=== PATIENT | male | born 1980 | race Two or more races ===

== ENCOUNTER 2020-09-18 10:19 | Inpatient (IN) | payer BC, SELFPAY ==
[2020-09-18] VITALS (8 sets, daily range): BP systolic 139–165; BP diastolic 88–116; PULSE 73–118; RESP 15–20; TEMP 36.6–39.1; O2SAT 96–98; BMI 33.3
--- NOTE | ~2020-09-18 | CT_ITS ---
EXAMINATION: CT ABDOMEN AND PELVIS WITHOUT CONTRAST CLINICAL INFORMATION: UTI with history of calculi COMPARISON: TECHNIQUE: Multidetector volumetric imaging was performed from the superior aspect of the liver through the pubic symphysis. Sagittal and coronal reformatted images were obtained on the technologist's workstation. This CT examination was performed using dose optimization techniques as appropriate, variously including the following: *Automated exposure control *Adjustment of mA and/or kV according to patient size (this includes techniques or standardized protocols for targeted exams where dose is matched to indication/reason for exam; i.e. 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 LUNG BASES: The visualized lung bases are unremarkable. LIVER, GALLBLADDER, AND BILIARY TREE: The liver is normal in size and shape but demonstrates decreased attenuation consistent with hepatic steatosis. 2 benign water density hepatic cysts are again seen. There are areas of focal fatty sparing adjacent to the gallbladder. No worrisome solid focal hepatic lesion or biliary ductal dilatation is present. The gallbladder is unremarkable with no evidence of radiopaque gallstones, gallbladder wall thickening, or obvious pericholecystic inflammatory changes. PANCREAS: Unremarkable. SPLEEN: Unremarkable. ADRENAL GLANDS: Unremarkable. KIDNEYS AND URETERS: Right: Severe right-sided hydronephrosis is present with the right kidney being essentially a hydronephrotic shell with extremely thinned cortex. A stone which had been in the right lower pole is now in the proximal right ureter adjacent to another stone which had been present in the ureter. The distal right ureter is normal. Left: No abnormality is seen. BLADDER: Unremarkable. GASTROINTESTINAL TRACT: The small and large bowel are unremarkable. The appendix is unremarkable. ABDOMINAL WALL: No significant hernia is appreciated. LYMPH NODES: Normal. VASCULAR: Unremarkable. PELVIC VISCERA: Unremarkable. OSSEOUS STRUCTURES: Unremarkable. CT/CT abdomen pelvis wo con IMPRESSION: 1. The only interval change from the prior study is a previously seen intrarenal right renal calculus which has moved and is lodged in the proximal right ureter along with another stone which had been present at this same area. The right kidney is a hydronephrotic shell with very little meaningful renal cortex and on renal dynamic imaging with Lasix performed on 09/22/2017 was shown to have no significant function. 2. Again noted is hepatic steatosis and 2 benign hepatic cysts
--- NOTE | ~2020-09-18 | XR_ITS ---
EXAMINATION: XR CHEST CLINICAL INFORMATION: Chest pain and fever COMPARISON: Previous CT of the abdomen and pelvis November 2017 TECHNIQUE: Frontal view of the chest was obtained. FINDINGS: The cardiac apex and aortic knob are on the right. Compared with previous CT this is compatible with situs inversus. The cardiac and mediastinal contours are otherwise normal. The lungs are clear. There is no pleural effusion or pneumothorax. Bony structures are unremarkable. XR/XR chest 1V IMPRESSION: Situs inversus. No evidence for acute disease in the chest.
--- NOTE | ~2020-09-18 | FL_ITS ---
EXAMINATION: Intraoperative fluoroscopy CLINICAL INFORMATION: Ureteroscopy COMPARISON: CT abdomen pelvis 09/18/2020 TECHNIQUE: Intraoperative fluoroscopy was provided for use by Dr. Hilliard. A total of 1 image was saved to PACS. A radiologist was not present during imaging. Today's dictation is only for administrative purposes to document intraoperative fluoroscopic usage. TOTAL FLUOROSCOPIC TIME: 1 minute and 31 seconds FL/FL guidance in OR FINDINGS~\^^ Intraoperative fluoroscopy provided for use by Dr. Hilliard. Please see operative note for detailed findings.
[2020-09-18] MEDS: Acetaminophen 325 MG TABLET 650 MG PO ×2 (10:33→16:58)
--- NOTE | 2020-09-18 11:37 | ED_ITS ---
HPI - General Adult General Chief complaint: General Medical Stated complaint: difficulty breathing, pain when urinating Time Seen by Provider: 09/18/20 11:21 Source: patient Mode of arrival: ambulatory Limitations: no limitations History of Present Illness HPI narrative: 40 y/o male with history of recurrent kidney stones with history of lithotripsy, hx right ureteral stricture s/p ureteral stent placement several times in the past, UTI who presents to the ED with 1 day of painful urination. He states it started out very slight yesterday and then this morning was pretty severe. He denies blood in his urine, back pain, abdominal pain, N/V/D. He states it feels like when he last had a UTI last year. He denies fevers at home but was noted to be febrile and tachycardic on arrival to the ED. He also reports dry cough that started yesterday that is associated with chest pain when he is coughing. MD complaint: dysuria Onset (ago): day(s) (1) Location: genitals Radiation: non-radiation Severity: severe Quality: burning Pain Consistency: intermittent Relieving factors: none Exacerbating factors: other (urination) Associated symptoms: fever/chills Treatments prior to arrival: none Related Data Allergies Allergy/AdvReac Type Severity Reaction Status Date / Time No Known Allergies Allergy Unverified 02/03/20 16:16 [No Known Allergies*] Review of Systems Review of Systems: Constitutional: No Fever, No Chills ENT/Mouth: No sore throat, No Rhinorrhea, No Swallowing Difficulty Cardiovascular: + Chest Pain, No SOB, No Orthopnea, No Edema Respiratory: + Cough, No Sputum, No Wheezing, No dyspnea Gastrointestinal: No Nausea, No Vomiting, No Diarrhea, No abdominal Pain Genitourinary: + Dysuria, No Urinary Frequency, No Hematuria Musculoskeletal: No joint pain, No Myalgias Skin: No Skin Lesions, No rash Neuro: No Weakness, No Numbness, No Dizziness, No Headache Psych: No Anxiety/Panic, No Depression Heme/Lymph: No Bruising, No Lymphadenopathy Endocrine: No Polyuria, No Polydipsia PMFSH Past Medical History Attestation statement: The following information was validated with the patient. Social History Social History Use of substances other than those prescribed or required for medical reasons: No Advance Directives: No Advance Directives Information Provided: No Physical Exam 2 Vital Signs: Vital Signs: Last Vital Signs Temp 99.5 F 09/18/20 12:38 Pulse 113 H 09/18/20 15:50 Resp 16 09/18/20 15:50 BP 165/116 H 09/18/20 15:50 Pulse Ox 96 09/18/20 15:50 Body Mass Index 33.3 Appearance: Alert. Oriented X3. No acute distress. Eyes: Pupils equal, round and reactive to light. ENT: Pharynx normal. Neck: Normal inspection. Neck supple. CVS: Tachycardic, regular rhythm. Pulses normal. Respiratory: No respiratory distress. Breath sounds normal. Abdomen: Soft and nontender. +BS x4. No CVA tenderness. Skin: Skin warm and dry. Normal skin color. Normal skin turgor. No rashes. Extremities: No lower extremity edema. Neuro: Oriented X 3. No motor deficit. No sensory deficit. Course Course Course Narrative: 40 y/o male presenting with dysuria x1 day. Arrives febrile and tachycardic. Non-toxic appearing. He has no CVA tenderness, hematuria or other symptoms of kidney stone. Concern for acute UTI, also given cough and fever will need to f/u COVID-19. He is not hypoxic and has no respiratory distress. Will get labs, UA, blood cultures, lactic acid. IVF and tylenol ordered. Reevaluation(s) Reevaluation #1: Patient's UA is positive for infection. His WBC is 18K. He meets sepsis criteria without evidence of organ dysfunction. Lactic acid is normal. He was given 1L IVF. IV Levaquin ordered. Prior urine culture is not on file upon review. His renal function is at his baseline. Given lack of CVA tenderness or hematuria will hold off on imaging for now. Troponin 42. His chest pain is only with cough. Doubt ACS. CXR is clear. Will get EKG and repeat troponin. Discussed admission to the hospital with the patient who is agreeable to stay for IV abx. Reevaluation #2: Troponin trending down. EKG still pending. Spoke with Nina NAVARRO who will admit for sepsis 2/2 UTI. Medical Decision Making Lab Data Result diagrams: 09/18/20 12:14 09/18/20 12:14 Labs: Lab Results 05/03/21 05/03/21 05/03/21 Range/Units 12:14 12:14 12:14 WBC 18.3 H (4.8-10.8) X10*3/uL RBC 5.54 (4.60-5.80) X10*6/uL Hgb 14.3 (14.0-18.0) g/dl Hct 44.7 (42-52) % MCV 80.7 (80-98) fL MCH 25.8 L (27.0-33.0) pg MCHC 32.0 (31.0-36.0) g/dl RDW 13.0 (11.0-16.0) % Plt Count 204 (160-400) X10*3/uL MPV 10.0 (9.4-12.4) fL Immature Gran % (Auto) 0.3 (0.0-0.4) % Neut % (Auto) 77.7 H (45-73) % Lymph % (Auto) 14.3 L (20-40) % [place] % (Auto) 7.1 (2-11) % Eos % (Auto) 0.4 (0-4) % Baso % (Auto) 0.2 (0-2) % Lymph # (Auto) 2.6 (1.2-4.9) X10*3/uL [place] # (Auto) 1.3 H (0.1-1.2) X10*3/uL Eos # (Auto) 0.1 (0.0-0.4) X10*3/uL Baso # (Auto) 0.0 (0.0-0.2) X10*3/uL Abs Immat Gran (auto) 0.05 H (0.00-0.03) X10*3/uL Absolute Neuts (auto) 14.2 H (2.0-8.3) X10*3/uL Absolute Nucleated RBC 0.000 (0.0-0.012) X10*3/uL Nucleated RBC % (auto) 0.0 (0.0-0.2) /100WBC Sodium 140 (135-145) mmol/L Potassium 3.8 (3.3-5.1) mmol/L Chloride 107 (96-108) mmol/L Carbon Dioxide 24 (22-29) mmol/L Anion Gap 13 (12-20) BUN 12 (9-16) mg/dL Creatinine 1.41 H (0.5-1.4) mg/dL Estim Creat Clear Calc 73.5 Estimated GFR 56 Random Glucose 91 (60-115) mg/dL Lactic Acid 1.0 (0.5-2.0) mmol/L Calcium 9.1 (8.4-10.2) mg/dL Magnesium 2.0 (1.6-2.6) mg/dL Total Bilirubin 0.7 (0.0-1.0) mg/dL Direct Bilirubin 0.3 (0.0-0.5) mg/dL AST 17 (5-37) U/L ALT 29 (0-40) U/L Alkaline Phosphatase 136 H (39-117) U/L Troponin I High Sens (<3.5-35.0) ng/L Total Protein 7.2 (6.5-8.0) g/dL Albumin 4.4 (3.5-5.0) g/dL Urine Color Urine Appearance Urine pH (5.0-8.0) Ur Specific [place] (1.005-1.025) Urine Protein (NEG-TRACE) MG/DL Urine Glucose (UA) (NEG) MG/DL Urine Ketones (NEG) MG/DL Urine Blood (NEG) Urine Nitrite (NEG) Ur Leukocyte Esterase (NEG) Urine RBC (0) /HPF Urine WBC (0-4) /HPF Ur Squamous Epith Cells /LPF Urine Bacteria /LPF Coronavirus (PCR) (Negative) Influenza Type A (PCR) (Negative) Influenza Type B (PCR) (Negative) RSV RNA Qual (PCR) (Negative) 09/18/20 09/18/20 09/18/20 Range/Units 12:14 12:14 12:14 WBC (4.8-10.8) X10*3/uL RBC (4.60-5.80) X10*6/uL Hgb (14.0-18.0) g/dl Hct (42-52) % MCV (80-98) fL MCH (27.0-33.0) pg MCHC (31.0-36.0) g/dl RDW (11.0-16.0) % Plt Count (160-400) X10*3/uL MPV (9.4-12.4) fL Immature Gran % (Auto) (0.0-0.4) % Neut % (Auto) (45-73) % Lymph % (Auto) (20-40) % [place] % (Auto) (2-11) % Eos % (Auto) (0-4) % Baso % (Auto) (0-2) % Lymph # (Auto) (1.2-4.9) X10*3/uL [place] # (Auto) (0.1-1.2) X10*3/uL Eos # (Auto) (0.0-0.4) X10*3/uL Baso # (Auto) (0.0-0.2) X10*3/uL Abs Immat Gran (auto) (0.00-0.03) X10*3/uL Absolute Neuts (auto) (2.0-8.3) X10*3/uL Absolute Nucleated RBC (0.0-0.012) X10*3/uL Nucleated RBC % (auto) (0.0-0.2) /100WBC Sodium (135-145) mmol/L Potassium (3.3-5.1) mmol/L Chloride (96-108) mmol/L Carbon Dioxide (22-29) mmol/L Anion Gap (12-20) BUN (9-16) mg/dL Creatinine (0.5-1.4) mg/dL Estim Creat Clear Calc Estimated GFR Random Glucose (60-115) mg/dL Lactic Acid (0.5-2.0) mmol/L Calcium (8.4-10.2) mg/dL Magnesium (1.6-2.6) mg/dL Total Bilirubin (0.0-1.0) mg/dL Direct Bilirubin (0.0-0.5) mg/dL AST (5-37) U/L ALT (0-40) U/L Alkaline Phosphatase (39-117) U/L Troponin I High Sens 43.6 H (<3.5-35.0) ng/L Total Protein (6.5-8.0) g/dL Albumin (3.5-5.0) g/dL Urine Color YELLOW Urine Appearance HAZY Urine pH 8.0 (5.0-8.0) Ur Specific [place] 1.020 (1.005-1.025) Urine Protein 2+ H (NEG-TRACE) MG/DL Urine Glucose (UA) NEG (NEG) MG/DL Urine Ketones NEG (NEG) MG/DL Urine Blood 2+ H (NEG) Urine Nitrite NEG (NEG) Ur Leukocyte Esterase 2+ H (NEG) Urine RBC 15-29 H (0) /HPF Urine WBC 76-150 H (0-4) /HPF Ur Squamous Epith Cells NONE /LPF Urine Bacteria 4+ /LPF Coronavirus (PCR) NEGATIVE (Negative) Influenza Type A (PCR) NEGATIVE (Negative) Influenza Type B (PCR) NEGATIVE (Negative) RSV RNA Qual (PCR) NEGATIVE (Negative) 09/18/20 Range/Units 15:47 WBC (4.8-10.8) X10*3/uL RBC (4.60-5.80) X10*6/uL Hgb (14.0-18.0) g/dl Hct (42-52) % MCV (80-98) fL MCH (27.0-33.0) pg MCHC (31.0-36.0) g/dl RDW (11.0-16.0) % Plt Count (160-400) X10*3/uL MPV (9.4-12.4) fL Immature Gran % (Auto) (0.0-0.4) % Neut % (Auto) (45-73) % Lymph % (Auto) (20-40) % [place] % (Auto) (2-11) % Eos % (Auto) (0-4) % Baso % (Auto) (0-2) % Lymph # (Auto) (1.2-4.9) X10*3/uL [place] # (Auto) (0.1-1.2) X10*3/uL Eos # (Auto) (0.0-0.4) X10*3/uL Baso # (Auto) (0.0-0.2) X10*3/uL Abs Immat Gran (auto) (0.00-0.03) X10*3/uL Absolute Neuts (auto) (2.0-8.3) X10*3/uL Absolute Nucleated RBC (0.0-0.012) X10*3/uL Nucleated RBC % (auto) (0.0-0.2) /100WBC Sodium (135-145) mmol/L Potassium (3.3-5.1) mmol/L Chloride (96-108) mmol/L Carbon Dioxide (22-29) mmol/L Anion Gap (12-20) BUN (9-16) mg/dL Creatinine (0.5-1.4) mg/dL Estim Creat Clear Calc Estimated GFR Random Glucose (60-115) mg/dL Lactic Acid (0.5-2.0) mmol/L Calcium (8.4-10.2) mg/dL Magnesium (1.6-2.6) mg/dL Total Bilirubin (0.0-1.0) mg/dL Direct Bilirubin (0.0-0.5) mg/dL AST (5-37) U/L ALT (0-40) U/L Alkaline Phosphatase (39-117) U/L Troponin I High Sens 37.7 H (<3.5-35.0) ng/L Total Protein (6.5-8.0) g/dL Albumin (3.5-5.0) g/dL Urine Color Urine Appearance Urine pH (5.0-8.0) Ur Specific [place] (1.005-1.025) Urine Protein (NEG-TRACE) MG/DL Urine Glucose (UA) (NEG) MG/DL Urine Ketones (NEG) MG/DL Urine Blood (NEG) Urine Nitrite (NEG) Ur Leukocyte Esterase (NEG) Urine RBC (0) /HPF Urine WBC (0-4) /HPF Ur Squamous Epith Cells /LPF Urine Bacteria /LPF Coronavirus (PCR) (Negative) Influenza Type A (PCR) (Negative) Influenza Type B (PCR) (Negative) RSV RNA Qual (PCR) (Negative) Discharge Plan Discharge Clinical Impression: Acute UTI Sepsis Qualifiers: Sepsis type: sepsis due to unspecified organism Sepsis acute organ dysfunction status: without acute organ dysfunction Qualified Code(s): A41.9 - Sepsis, unspecified organism Patient Disposition: Admitted As Inpatient
[2020-09-18] MEDS: 0.9 % Sodium Chloride 1,000 ML 999 ML IVCONT (12:13)
[2020-09-18 12:23] LABS: MANUAL DIFF FLAG NO
[2020-09-18 12:25] LABS: Basophils Percent Auto 0.2 % (0-2); Eosinophils Absolute Auto 0.1 X10*3/uL (0.0-0.4); Eosinophils Percent Auto 0.4 % (0-4); Hematocrit 44.7 % (42-52); Hemoglobin 14.3 g/dl (14.0-18.0); Imm Gran Abs Auto 0.05 X10*3/uL (0.00-0.03); Imm Gran Pct Auto 0.3 % (0.0-0.4); Lymphocytes Absolute Auto 2.6 X10*3/uL (1.2-4.9); Lymphocytes Percent Auto 14.3 % (20-40); Mean Corpuscular Hemoglobin 25.8 pg (27.0-33.0); Mean Corpuscular Volume 80.7 fL (80-98); Monocytes Absolute Auto 1.3 X10*3/uL (0.1-1.2); Monocytes Percent Auto 7.1 % (2-11); Neutrophils Absolute Auto 14.2 X10*3/uL (2.0-8.3); Neutrophils Percent Auto 77.7 % (45-73); Platelet Count 204 X10*3/uL (160-400); Red Blood Count 5.54 X10*6/uL (4.60-5.80); White Blood Count 18.3 X10*3/uL (4.8-10.8)
[2020-09-18] MEDS: levoFLOXacin/D5W 500 MG/100 ML PIGGYBACK 100 MG IV (12:32)
[2020-09-18 12:53] LABS: Alanine Aminotransferase 29 U/L (0-40); Albumin Level 4.4 g/dL (3.5-5.0); Alkaline Phosphatase 136 U/L (39-117); Anion Gap 13 (12-20); Aspartate Amino Transferase 17 U/L (5-37); Bilirubin Direct 0.3 mg/dL (0.0-0.5); Bilirubin Total 0.7 mg/dL (0.0-1.0); Blood Urea Nitrogen 12 mg/dL (9-16); Calcium 9.1 mg/dL (8.4-10.2); Carbon Dioxide 24 mmol/L (22-29); Chloride 107 mmol/L (96-108); Creatinine Clr Calc Pharmacy 73.5; Estimated Glomerular Filt Rate 56; Glucose Random 91 mg/dL (60-115); Potassium 3.8 mmol/L (3.3-5.1); Sodium 140 mmol/L (135-145); Total Protein 7.2 g/dL (6.5-8.0)
[2020-09-18 12:54] LABS: Glucose Urine UA NEG (NEG); Leukocyte Esterase Urine 2+ (NEG); Nitrite Urine NEG (NEG); UACC Culture Trigger YES; Urine Blood 2+ (NEG); Urine Ketones NEG (NEG); Urine Protein 2+ MG/DL (NEG-TRACE)
[2020-09-18 12:57] LABS: Appearance Urine HAZY; Color Urine YELLOW
[2020-09-18 13:07] LABS: Influenza A PCR NEGATIVE (Negative); Influenza B PCR NEGATIVE (Negative); Resp Syncy Virus RNA Qual PCR NEGATIVE (Negative); SARS COV2 PCR INHOUSE NEGATIVE (Negative); Troponin-I High Sensitivity 43.6 ng/L (<3.5-35.0)
[2020-09-18 13:13] LABS: Bacteria Urine 4+ /LPF
--- NOTE | 2020-09-18 15:51 | PC.NURSE ---
repeat troponin drawn/sent. pt resting quietly
[2020-09-18 16:49] LABS: Troponin-I High Sensitivity 37.7 ng/L (<3.5-35.0)
--- NOTE | 2020-09-18 16:51 | ECG_ITS ---
Test Reason : GENERAL MEDICAL Blood Pressure : / mmHG Vent. Rate : 085 BPM Atrial Rate : 085 BPM P-R Int : 136 ms QRS Dur : 086 ms QT Int : 370 ms P-R-T Axes : 000 105 070 degrees QTc Int : 440 ms Normal sinus rhythm Rightward axis Borderline ECG When compared with ECG of 03-OCT-2003 14:12, Criteria for Anterior infarct are no longer Present Criteria for Anterolateral infarct are no longer Present T wave inversion no longer evident in Lateral leads Referred By: Violet Arreola Electronically Signed By:LAWRENCE ACEVEDO
--- NOTE | 2020-09-18 18:42 | PM.IMHP ---
History of Present Illness Date of Service: 09/18/20 Chief Complaint: Dysuria 40-year-old male with a history of kidney stones who presents to the emergency room with a dysuria that started yesterday associated with urinary frequency he has some back pain but he says that this is not new and is associated with a kidney stone that he has had in the past. In the ED he was noted to be febrile temperature 102.3 degrees tachycardic [place] [address] and urinalysis was positive. He has been given Levaquin and CT scan is requested. Review of Systems Review of Systems: Back pain but no flank pain. Fever Dysuria No nausea vomiting Yes all other systems are reviewed and are negative [facility] Medical History (Updated 09/18/20 @ 18:44 by Hernando Wolfe MD) Abnormal cystoscopy Chronic kidney disease History of renal stone Pertinent family history: Diabetes, asthma, hypertension Social History Household Members: None Housing: House Do you presently have visiting nurse or other home services: No Smoking Status: Never smoker Smoked in Last 30 Days: No Second Hand Smoke Exposure: No Use of substances other than those prescribed or required for medical reasons: No Currently Displaying Signs/Symptoms of Drug Intoxication Withdrawal: No Any prior treatment program specific to substance use: No Have you been hit, kicked, punched, or otherwise hurt by someone within the past year? If so, by whom?: No Do you feel safe in your current relationship?: No Current Relationship Is there a partner from a previous relationship who is making you feel unsafe now?: No Are you made to feel afraid or neglected: No Advance Directives: No Advance Directives Information Provided: No Do you have thoughts of harming others: None Do you have a plan to hurt others: No Plan Recently lost weight without trying: No Eating poorly because of decreased appetite: No Nutrition Risks: No Nutritional Risk Poor oral hygiene: No service: No Current occupational status: employed Meds Allergies Allergy/AdvReac Type Severity Reaction Status Date / Time No Known Allergies Allergy Unverified 02/03/20 16:16 [No Known Allergies*] Active Medications: Current Medications Generic Name Dose Route Start Last Admin Trade Name Freq PRN Reason Stop Dose Admin Melatonin 3 mg 09/18/20 18:21 Melatonin 3 Mg Tablet PO BEDTIME PRN Sleep Morphine Sulfate 2 mg 09/18/20 18:21 Morphine Sulfate 2 Mg/Ml Cartridge IVPUSH Q4H PRN Pain, Severe (Pain Scale 7-10) Home Medications Medication Instructions Recorded Confirmed Last Taken Type No Known Home Meds 09/18/20 09/18/20 Unknown History Physical Exam Vital Signs and Narrative: Vital Signs: Last Vital Signs Temp 99.5 F 09/18/20 12:38 Pulse 113 H 09/18/20 15:50 Resp 16 09/18/20 15:50 BP 165/116 H 09/18/20 15:50 Pulse Ox 96 09/18/20 15:50 Body Mass Index 33.3 Constitutional Awake and Alert, No apparent distress HEEN:PERRL, anicteric Neck Supple, No lymphadenopathy Cardiovascular RRR, No M/R/G, S1 S2, No S3 S4, No pedal edema Respiratory Lungs clear, No respiratory distress Gastrointestinal Non tender, Non-distended : no flank tenderness Skin No rash Neurological Alert & oriented x3 Psychological Appropriate affect Results Labs CBC and Chem 7: 09/19/20 05:27 09/19/20 05:27 Labs: Laboratory Results - last 24 hr 09/18/20 09/18/20 09/18/20 12:14 12:14 12:14 MCV 80.7 MCH 25.8 L MCHC 32.0 RDW 13.0 Plt Count 204 MPV 10.0 Immature Gran % (Auto) 0.3 Neut % (Auto) 77.7 H Lymph % (Auto) 14.3 L [place] % (Auto) 7.1 Eos % (Auto) 0.4 Baso % (Auto) 0.2 Lymph # (Auto) 2.6 [place] # (Auto) 1.3 H Eos # (Auto) 0.1 Baso # (Auto) 0.0 Abs Immat Gran (auto) 0.05 H Absolute Neuts (auto) 14.2 H Absolute Nucleated RBC 0.000 Nucleated RBC % (auto) 0.0 Anion Gap 13 Estim Creat Clear Calc 73.5 Estimated GFR 56 Random Glucose 91 Lactic Acid 1.0 Calcium 9.1 Magnesium 2.0 Total Bilirubin 0.7 Direct Bilirubin 0.3 AST 17 ALT 29 Alkaline Phosphatase 136 H Troponin I High Sens Total Protein 7.2 Albumin 4.4 Urine Color Urine Appearance Urine pH Ur Specific [place] Urine Protein Urine Glucose (UA) Urine Ketones Urine Blood Urine Nitrite Ur Leukocyte Esterase Urine RBC Urine WBC Ur Squamous Epith Cells Urine Bacteria Coronavirus (PCR) Influenza Type A (PCR) Influenza Type B (PCR) RSV RNA Qual (PCR) 09/18/20 09/18/20 09/18/20 12:14 12:14 12:14 MCV MCH MCHC RDW Plt Count MPV Immature Gran % (Auto) Neut % (Auto) Lymph % (Auto) [place] % (Auto) Eos % (Auto) Baso % (Auto) Lymph # (Auto) [place] # (Auto) Eos # (Auto) Baso # (Auto) Abs Immat Gran (auto) Absolute Neuts (auto) Absolute Nucleated RBC Nucleated RBC % (auto) Anion Gap Estim Creat Clear Calc Estimated GFR Random Glucose Lactic Acid Calcium Magnesium Total Bilirubin Direct Bilirubin AST ALT Alkaline Phosphatase Troponin I High Sens 43.6 H Total Protein Albumin Urine Color YELLOW Urine Appearance HAZY Urine pH 8.0 Ur Specific [place] 1.020 Urine Protein 2+ H Urine Glucose (UA) NEG Urine Ketones NEG Urine Blood 2+ H Urine Nitrite NEG Ur Leukocyte Esterase 2+ H Urine RBC 15-29 H Urine WBC 76-150 H Ur Squamous Epith Cells NONE Urine Bacteria 4+ Coronavirus (PCR) NEGATIVE Influenza Type A (PCR) NEGATIVE Influenza Type B (PCR) NEGATIVE RSV RNA Qual (PCR) NEGATIVE 09/18/20 15:47 MCV MCH MCHC RDW Plt Count MPV Immature Gran % (Auto) Neut % (Auto) Lymph % (Auto) [place] % (Auto) Eos % (Auto) Baso % (Auto) Lymph # (Auto) [place] # (Auto) Eos # (Auto) Baso # (Auto) Abs Immat Gran (auto) Absolute Neuts (auto) Absolute Nucleated RBC Nucleated RBC % (auto) Anion Gap Estim Creat Clear Calc Estimated GFR Random Glucose Lactic Acid Calcium Magnesium Total Bilirubin Direct Bilirubin AST ALT Alkaline Phosphatase Troponin I High Sens 37.7 H Total Protein Albumin Urine Color Urine Appearance Urine pH Ur Specific [place] Urine Protein Urine Glucose (UA) Urine Ketones Urine Blood Urine Nitrite Ur Leukocyte Esterase Urine RBC Urine WBC Ur Squamous Epith Cells Urine Bacteria Coronavirus (PCR) Influenza Type A (PCR) Influenza Type B (PCR) RSV RNA Qual (PCR) Imaging Radiologist's Impressions: Impressions Chest X-Ray 09/18/20 11:21 IMPRESSION: Situs inversus. No evidence for acute disease in the chest. Assessment and Plan (1) Acute UTI: Status: Acute (2) Sepsis: Qualifiers: Sepsis acute organ dysfunction status: without acute organ dysfunction Sepsis type: sepsis due to unspecified organism Qualified Code(s): A41.9 - Sepsis, unspecified organism Status: Acute 40-year-old male with history of kidney stone here with sepsis due to acute pyelonephritis. Plan: CT scan of the abdomen. Continue antibiotics with ceftriaxone 1 g daily. Urology consult. Follow-up on culture. Morphine for pain. IV fluid. Please note that the patient have a chroni kidney disease, and elevated creatinine is not due to sepsis. NPO overnight in the event he will need procedure
[2020-09-18] MEDS: Phenazopyridine HCL 100 MG TABLET PO (20:48)
[2020-09-18] MEDS: cefTRIAXone sodium 1 GM in 0.9 % Sodium Chloride 50 ML IV (20:48)
[2020-09-18] MEDS: 0.9 % Sodium Chloride 1,000 ML 100 ML IVCONT (21:19)
--- NOTE | 2020-09-18 22:39 | MHC.CM.PN ---
CM met with pt. A&Ox3. Quiet. Little conversation. Lives alone. Employed at [employer]. No services. No PCP. No HCP. Education provided, refuses at this time to complete. Mother, Belinda Patterson is contact([phone]). D/C plan is home without services. Pt will need a PCP referral. Pt to arrange transportation-family or friend. CM to follow for d/c needs.
[2020-09-19] VITALS (15 sets, daily range): BP systolic 119–169; BP diastolic 74–111; PULSE 68–95; RESP 16–20; TEMP 36–37.4; O2SAT 95–98; BMI 33.3
[2020-09-19] MEDS: 0.9 % Sodium Chloride Flush 3 ML SYRINGE IVFLUSH (00:05)
--- NOTE | 2020-09-19 00:45 | PC.NURSE ---
NURSE TO NURSE REPORT GIVEN TO MARRY ROBBINS
[2020-09-19 05:53] LABS: Hematocrit 44.2 % (42-52); Hemoglobin 13.7 g/dl (14.0-18.0); Mean Corpuscular Hemoglobin 25.4 pg (27.0-33.0); Mean Corpuscular Volume 81.9 fL (80-98); Mean Platelet Volume 9.9 fL (9.4-12.4); Platelet Count 194 X10*3/uL (160-400); Red Cell Distribution Width 13.1 % (11.0-16.0); White Blood Count 14.8 X10*3/uL (4.8-10.8)
[2020-09-19] MEDS: 0.9 % Sodium Chloride 1,000 ML 100 ML IVCONT ×2 (06:20→19:02)
[2020-09-19 06:32] LABS: Anion Gap 10 (12-20); Blood Urea Nitrogen 12 mg/dL (9-16); Calcium 8.7 mg/dL (8.4-10.2); Carbon Dioxide 26 mmol/L (22-29); Chloride 108 mmol/L (96-108); Creatinine Clr Calc Pharmacy 77.9; Estimated Glomerular Filt Rate > 60; Glucose Random 95 mg/dL (60-115); Potassium 4.1 mmol/L (3.3-5.1); Sodium 140 mmol/L (135-145)
[2020-09-19] MEDS: Phenazopyridine HCL 100 MG TABLET PO ×2 (07:46→11:46)
--- NOTE | 2020-09-19 13:30 | MHC.CM.PN ---
NURSE CARE MANGER NOTE ELECTRONIC MEDICAL RECORD REVIEWED..PER DOCUMENTATION PATIENT CAME TO THE ER WITH COMPLAINTS OF9 DYSURIA, FREQUENCY BACK PAIN AND WAS NOTED TO HAVE ELEVATED WHITE BLOoD CELL COUNT AND TEMPERATURE OF 102.3 AND ELEVATED PULSE RATE URINALYSIS POSITIVE . PATIENT WAS THEN ADMITTED WITH SEPSIS, ACUTE URINARY TRACT INFECTION AND DIAGNOSIS ACUTE PYELONEPHRITIS. 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
--- NOTE | 2020-09-19 13:36 | P.PNIM_ITS ---
Subjective Subjective Date of Service: 09/19/20 Interval History: Seen in f/u for sepsis d/t Peylo, kidney stone Review of Systems Gen: no fever Resp: no sob, no cough CV: no chest, no LANDRUM, no leg edema GI/: No n/v, no abd pain, no flank tenderness Neuro: No confusion Physical Exam Vital Signs: Vital Signs: Last Vital Signs Temp 98.7 F 09/19/20 11:40 Pulse 74 09/19/20 11:40 Resp 18 09/19/20 11:40 BP 163/93 H 09/19/20 11:40 Pulse Ox 96 09/19/20 11:40 Body Mass Index 33.3 General: AO X 3, no acute distress Resp: CTA bilateral CVS: S1,S2,RRR GI: +BS, NT, no distention Skin: No rash Neuro: motor grossly intact Psych: appropriate affect Objective Data Current Medications Generic Name Dose Route Start Last Admin Trade Name Freq PRN Reason Stop Dose Admin Ceftriaxone Sodium 1 gm/ 50 mls @ 100 mls/hr 09/18/20 20:37 09/18/20 21:18 Sodium Chloride IV Infused Q24H DEMARCO Infusion Sodium Chloride 1,000 mls @ 100 mls/hr 09/18/20 20:37 09/19/20 06:20 Ns IVCONT 100 mls/hr .Q10H DEMARCO Administration Melatonin 3 mg 09/18/20 18:21 Melatonin 3 Mg Tablet PO BEDTIME PRN Sleep Morphine Sulfate 2 mg 09/18/20 18:21 Morphine Sulfate 2 Mg/Ml Cartridge IVPUSH Q4H PRN Pain, Severe (Pain Scale 7-10) Phenazopyridine HCl 100 mg 09/18/20 20:37 09/19/20 11:46 Phenazopyridine Hcl 100 Mg Tablet PO 09/20/20 12:01 100 mg TIDWM DEMARCO Administration Sodium Chloride 3 ml 09/19/20 00:00 09/19/20 07:00 0.9 % Sodium Chloride Flush 3 Ml Syringe IVFLUSH Not Given [facility] Labs CBC & Chem 7: 09/19/20 05:27 09/19/20 05:27 Microbiology Microbiology Results: Microbiology 09/18/20 00:00 Urine clean catch - Clean Catch Midstream Urine Culture - Final No growth. Assessment and Plan (1) Acute UTI: Status: Acute (2) Sepsis: Status: Acute Assessment and Plan: 40-year-old male with history of kidney stone here with sepsis due to acute pyelonephritis. CT demonstrated kidney stones Plan: Continue antibiotics with ceftriaxone 1 g daily. Urology to asssess for procedure. Follow-up on culture. Morphine for pain. IV fluid. Continue NPO. renal function is better.
[2020-09-19] MEDS: amLODIPine Besylate 5 MG TABLET PO (15:29)
--- NOTE | 2020-09-19 15:55 | P.CNUR_ITS ---
History of Present Illness Consult details Consult date: 09/19/20 Narrative: Jered is a male well known to Urology. Has had multiple procedures on right side for kidney stones in the past Known to have hydronephrosis with effaced calices Presented to the hospital with fevers and pain on the right side - pain to 8 CT scan showed stone in right upper ureter with dilated caliceal system Creatinine 1.4, mildly elevated WBC Urine culture negative Based on imaging would recommend ureteroscopy with laser lithotripsy and stone basketing This was discussed with Jered He would like to proceed PMFSH Past Medical History Medical History (Updated 09/19/20 @ 15:58 by Andrea Hilliard MD) Abnormal cystoscopy Chronic kidney disease History of renal stone Social History Social History Household Members: None Housing: House Do you presently have visiting nurse or other home services: No Smoking Status: Never smoker Smoked in Last 30 Days: No Second Hand Smoke Exposure: No Use of substances other than those prescribed or required for medical reasons: No Currently Displaying Signs/Symptoms of Drug Intoxication Withdrawal: No Any prior treatment program specific to substance use: No Have you been hit, kicked, punched, or otherwise hurt by someone within the past year? If so, by whom?: No Do you feel safe in your current relationship?: No Current Relationship Is there a partner from a previous relationship who is making you feel unsafe now?: No Are you made to feel afraid or neglected: No Are you DNR?: No Advance Directives: No Advance Directives Information Provided: No Do you have thoughts of harming others: None Do you have a plan to hurt others: No Plan Recently lost weight without trying: No Eating poorly because of decreased appetite: No Nutrition Risks: No Nutritional Risk Poor oral hygiene: No service: No Current occupational status: employed Meds Allergies Allergy/AdvReac Type Severity Reaction Status Date / Time No Known Allergies Allergy Unverified 02/03/20 16:16 [No Known Allergies*] Active Medications: Current Medications Generic Name Dose Route Start Last Admin Trade Name Freq PRN Reason Stop Dose Admin Amlodipine Besylate 5 mg 09/19/20 14:30 09/19/20 15:29 Amlodipine Besylate 5 Mg Tablet PO 5 mg DAILY DEMARCO Administration Protocol Ceftriaxone Sodium 1 gm/ 50 mls @ 100 mls/hr 09/18/20 20:37 09/18/20 21:18 Sodium Chloride IV Infused Q24H DEMARCO Infusion Sodium Chloride 1,000 mls @ 100 mls/hr 09/18/20 20:37 09/19/20 15:33 Ns IVCONT Not Given .Q10H DEMARCO Melatonin 3 mg 09/18/20 18:21 Melatonin 3 Mg Tablet PO BEDTIME PRN Sleep Morphine Sulfate 2 mg 09/18/20 18:21 Morphine Sulfate 2 Mg/Ml Cartridge IVPUSH Q4H PRN Pain, Severe (Pain Scale 7-10) Phenazopyridine HCl 100 mg 09/18/20 20:37 09/19/20 11:46 Phenazopyridine Hcl 100 Mg Tablet PO 09/20/20 12:01 100 mg TIDWM [facility] Administration Sodium Chloride 3 ml 09/19/20 00:00 09/19/20 15:32 0.9 % Sodium Chloride Flush 3 Ml Syringe IVFLUSH Not Given QSHIFT [facility] Home Medications Medication Instructions Recorded Confirmed Last Taken Type No Known Home Meds 09/18/20 09/18/20 Unknown History Physical Exam Vital Signs: Vital Signs: Last Vital Signs Temp 97.8 F 09/19/20 15:50 Pulse 72 09/19/20 15:50 Resp 18 09/19/20 15:50 BP 166/103 H 09/19/20 15:50 Pulse Ox 96 09/19/20 15:50 Body Mass Index 33.3 Const: General: cooperative, healthy appearing, comfortable and no acute distress Nutritional Appearance: average body habitus Orientation/consciousness: oriented to person, oriented to place and oriented to time Eyes: General: appearance normal, both eyes and all related structures Chest: Chest palpation & inspection: normal inspection of the chest Resp: Effort & Inspection: normal respiratory effort Cardio: Rate: regular rate GI: Inspection: Yes normal to inspection Skin: Hair: normal Neuro: General: oriented to person, oriented to place and oriented to time Extrem: General: Yes normal to inspection Results Labs Result diagrams: 09/19/20 05:27 09/19/20 05:27 Labs: Abnormal lab results 09/18/20 09/19/20 09/19/20 Range/Units 15:47 05:27 05:27 WBC 14.8 H (4.8-10.8) X10*3/uL Hgb 13.7 L (14.0-18.0) g/dl MCH 25.4 L (27.0-33.0) pg Anion Gap 10 L (12-20) Troponin I High Sens 37.7 H (<3.5-35.0) ng/L Short CBC 09/19/20 Range/Units 05:27 WBC 14.8 H (4.8-10.8) X10*3/uL Hgb 13.7 L (14.0-18.0) g/dl Hct 44.2 (42-52) % Plt Count 194 (160-400) X10*3/uL BMP 09/19/20 05:27 Sodium 140 Potassium 4.1 Chloride 108 Carbon Dioxide 26 BUN 12 Creatinine 1.33 Calcium 8.7 Urine 09/18/20 Range/Units 12:14 Urine Color YELLOW Urine Appearance HAZY Urine pH 8.0 (5.0-8.0) Ur Specific [place] 1.020 (1.005-1.025) Urine Protein 2+ H (NEG-TRACE) MG/DL Urine Glucose (UA) NEG (NEG) MG/DL All other labs normal. Assessment and Plan (1) Renal calculus, right: Problem details: Right proximal ureteric stone with hydronephrosis Status: Acute Ureteroscopy We discussed the nature of the decision and reasonable alternatives for performing the above surgery. Interventions include chemical dissolution, ESWL, ureteroscopy with laser lithotripsy and stent placement, PCNL. Options such as medical therapy were discussed. The relative uncertainties and benefits related to each alternate procedure were adequately discussed. General surgical risks including, but not limited to, pain, bleeding, infection, myocardial infarction, pulmonary embolus, deep vein thrombosis and cerebrovascular accident which may result in further hospitalization were discussed. Full disclosure of the procedure as well as all major risks, benefits and complications were discussed including but not limited to damage to the urethra, bladder and kidney infection, damage to the ureter, stent migration or malposition, scarring to the renal pelvis, remnant stone fragments, subsequent stone passage with need for secondary procedures. The overall secondary procedure rate is approximately 10-15%. The success rate of the procedure was discussed. Success of the procedure in the short-term does not necessarily guarantee that long-term success will be maintained. Suitable follow up will need to be maintained. The patient showed understanding of discussion and wishes to proceed with - cystoscopy, retrograde, ureteroscopy, possible lithotripsy/stone basketing and stent on the right side
--- NOTE | 2020-09-19 15:55 | HO.ANESPROP2 ---
[facility], [facility] Active Problems Active Problems: All Active Problems (Updated 09/18/20 @ 18:44 by Hernando Wolfe MD) Acute UTI (Acute) Sepsis (Acute) Past Medical History Medical History (Updated 09/19/20 @ 15:58 by Andrea Hilliard MD) Abnormal cystoscopy Chronic kidney disease History of renal stone Social History Social History Household Members: None Housing: House Do you presently have visiting nurse or other home services: No Smoking Status: Never smoker Smoked in Last 30 Days: No Second Hand Smoke Exposure: No Use of substances other than those prescribed or required for medical reasons: No Currently Displaying Signs/Symptoms of Drug Intoxication Withdrawal: No Any prior treatment program specific to substance use: No Have you been hit, kicked, punched, or otherwise hurt by someone within the past year? If so, by whom?: No Do you feel safe in your current relationship?: No Current Relationship Is there a partner from a previous relationship who is making you feel unsafe now?: No Are you made to feel afraid or neglected: No Are you DNR?: No Advance Directives: No Advance Directives Information Provided: No Do you have thoughts of harming others: None Do you have a plan to hurt others: No Plan Recently lost weight without trying: No Eating poorly because of decreased appetite: No Nutrition Risks: No Nutritional Risk Poor oral hygiene: No service: No Current occupational status: employed Meds Allergies Allergy/AdvReac Type Severity Reaction Status Date / Time No Known Allergies Allergy Unverified 02/03/20 16:16 [No Known Allergies*] Active Medications: Current Medications Generic Name Dose Route Start Last Admin Trade Name Radha PRN Reason Stop Dose Admin Amlodipine Besylate 5 mg 09/19/20 14:30 09/19/20 15:29 Amlodipine Besylate 5 Mg Tablet PO 5 mg DAILY DEMARCO Administration Protocol Ceftriaxone Sodium 1 gm/ 50 mls @ 100 mls/hr 09/18/20 20:37 09/18/20 21:18 Sodium Chloride IV Infused Q24H DEMARCO Infusion Sodium Chloride 1,000 mls @ 100 mls/hr 09/18/20 20:37 09/19/20 15:33 Ns IVCONT Not Given .Q10H DEMARCO Melatonin 3 mg 09/18/20 18:21 Melatonin 3 Mg Tablet PO BEDTIME PRN Sleep Morphine Sulfate 2 mg 09/18/20 18:21 Morphine Sulfate 2 Mg/Ml Cartridge IVPUSH Q4H PRN Pain, Severe (Pain Scale 7-10) Phenazopyridine HCl 100 mg 09/18/20 20:37 09/19/20 11:46 Phenazopyridine Hcl 100 Mg Tablet PO 09/20/20 12:01 100 mg TIDWM DEMARCO Administration Sodium Chloride 3 ml 09/19/20 00:00 09/19/20 15:32 0.9 % Sodium Chloride Flush 3 Ml Syringe IVFLUSH Not Given QSHIFT [facility] Home Medications Medication Instructions Recorded Confirmed Last Taken Type No Known Home Meds 09/18/20 09/18/20 Unknown History Exam Exam Date and Time: September 19, 2020 1555 Height,Weight and Vital Signs: Height 5 ft 5 in Weight 90.7 kg Last Vital Signs Temp 97.8 F 09/19/20 15:50 Pulse 72 09/19/20 15:50 Resp 18 09/19/20 15:50 BP 166/103 H 09/19/20 15:50 Pulse Ox 96 09/19/20 15:50 Pertinent Lab Results Pertinent Lab Results: Laboratory Tests 09/18/20 09/18/20 09/18/20 12:14 12:14 12:14 WBC 18.3 H RBC 5.54 Hgb 14.3 Hct 44.7 MCV 80.7 MCH 25.8 L MCHC 32.0 RDW 13.0 Plt Count 204 MPV 10.0 Immature Gran % (Auto) 0.3 Neut % (Auto) 77.7 H Lymph % (Auto) 14.3 L [place] % (Auto) 7.1 Eos % (Auto) 0.4 Baso % (Auto) 0.2 Lymph # (Auto) 2.6 [place] # (Auto) 1.3 H Eos # (Auto) 0.1 Baso # (Auto) 0.0 Abs Immat Gran (auto) 0.05 H Absolute Neuts (auto) 14.2 H Absolute Nucleated RBC 0.000 Nucleated RBC % (auto) 0.0 Sodium 140 Potassium 3.8 Chloride 107 Carbon Dioxide 24 Anion Gap 13 BUN 12 Creatinine 1.41 H Estim Creat Clear Calc 73.5 Estimated GFR 56 Random Glucose 91 Lactic Acid 1.0 Calcium 9.1 Magnesium 2.0 Total Bilirubin 0.7 Direct Bilirubin 0.3 AST 17 ALT 29 Alkaline Phosphatase 136 H Troponin I High Sens Total Protein 7.2 Albumin 4.4 Urine Color Urine Appearance Urine pH Ur Specific [place] Urine Protein Urine Glucose (UA) Urine Ketones Urine Blood Urine Nitrite Ur Leukocyte Esterase Urine RBC Urine WBC Ur Squamous Epith Cells Urine Bacteria Coronavirus (PCR) Influenza Type A (PCR) Influenza Type B (PCR) RSV RNA Qual (PCR) 09/18/20 09/18/20 09/18/20 12:14 12:14 12:14 WBC RBC Hgb Hct MCV MCH MCHC RDW Plt Count MPV Immature Gran % (Auto) Neut % (Auto) Lymph % (Auto) [place] % (Auto) Eos % (Auto) Baso % (Auto) Lymph # (Auto) [place] # (Auto) Eos # (Auto) Baso # (Auto) Abs Immat Gran (auto) Absolute Neuts (auto) Absolute Nucleated RBC Nucleated RBC % (auto) Sodium Potassium Chloride Carbon Dioxide Anion Gap BUN Creatinine Estim Creat Clear Calc Estimated GFR Random Glucose Lactic Acid Calcium Magnesium Total Bilirubin Direct Bilirubin AST ALT Alkaline Phosphatase Troponin I High Sens 43.6 H Total Protein Albumin Urine Color YELLOW Urine Appearance HAZY Urine pH 8.0 Ur Specific [place] 1.020 Urine Protein 2+ H Urine Glucose (UA) NEG Urine Ketones NEG Urine Blood 2+ H Urine Nitrite NEG Ur Leukocyte Esterase 2+ H Urine RBC 15-29 H Urine WBC 76-150 H Ur Squamous Epith Cells NONE Urine Bacteria 4+ Coronavirus (PCR) NEGATIVE Influenza Type A (PCR) NEGATIVE Influenza Type B (PCR) NEGATIVE RSV RNA Qual (PCR) NEGATIVE 09/18/20 09/19/20 09/19/20 15:47 05:27 05:27 WBC 14.8 H RBC 5.40 Hgb 13.7 L Hct 44.2 MCV 81.9 MCH 25.4 L MCHC 31.0 RDW 13.1 Plt Count 194 MPV 9.9 Immature Gran % (Auto) Neut % (Auto) Lymph % (Auto) [place] % (Auto) Eos % (Auto) Baso % (Auto) Lymph # (Auto) [place] # (Auto) Eos # (Auto) Baso # (Auto) Abs Immat Gran (auto) Absolute Neuts (auto) Absolute Nucleated RBC 0.000 Nucleated RBC % (auto) 0.0 Sodium 140 Potassium 4.1 Chloride 108 Carbon Dioxide 26 Anion Gap 10 L BUN 12 Creatinine 1.33 Estim Creat Clear Calc 77.9 Estimated GFR > 60 Random Glucose 95 Lactic Acid Calcium 8.7 Magnesium Total Bilirubin Direct Bilirubin AST ALT Alkaline Phosphatase Troponin I High Sens 37.7 H Total Protein Albumin Urine Color Urine Appearance Urine pH Ur Specific [place] Urine Protein Urine Glucose (UA) Urine Ketones Urine Blood Urine Nitrite Ur Leukocyte Esterase Urine RBC Urine WBC Ur Squamous Epith Cells Urine Bacteria Coronavirus (PCR) Influenza Type A (PCR) Influenza Type B (PCR) RSV RNA Qual (PCR) Airway Mallampati Class: III TM Dist: >3cm Neck ROM: Full Loose/Missing/Broken Teeth: No Heart: RRR Lungs: CTA Assessment and Plan Assessment Anesthesia Assessment: Anesthesia Plan Discussed Final Anesthetic Review NPO: Yes ASA Class: II and Emergency Final Preanesthetic Review: No Changes in Pt Med Stat, Meds/Allgs Chart Reviewed, Consent Obtained/Reviewed and Anes Risks/Benef Reviewed Patient Risk: Intermediate Procedure Risk: Low Anesthetic Plan Anesthetic Plan: GA Disposition: Standard PACU
[2020-09-19] MEDS: levoFLOXacin 500 MG TABLET PO (16:02)
--- NOTE | 2020-09-19 16:21 | MHC.SHP ---
Pre-Procedural Eval Section A The patient is an INPATIENT: Yes Changes since office visit: No Cold of Flu in the past 2 weeks, No New Medical Problems, No Changes in Medication and No Patient answered all questions The History & Physical has been completed within 30 days and I have reviewed it.: Yes Section B Chief Complaint: Acute Pyelonephritis Allergies: Allergies Allergy/AdvReac Type Severity Reaction Status Date / Time No Known Allergies Allergy Unverified 02/03/20 16:16 [No Known Allergies*] Plan Diagnosis/Plan: Unchanged (right retrograde, ureteroscopy, laser lithotripsy ) I have reviewed the history and physical and performed a pertinent physical examination on my patient. No changes have occurred unless specified.
--- NOTE | 2020-09-19 17:12 | W.PM.OPN ---
Operative Note Operative Note Date of Service: 09/19/20 Narrative: PreOperative Diagnosis: Right upper ureteric stone Post Operative Diagnosis: Right upper ureteric stone with strictured ureter Procedure: - cystoscopy, retrograde - dilatation of ureteric orifice under fluoroscopy - ureteroscopy, laser lithotripsy, \ Surgeon: Dr Andrea Hilliard Anesthesia: General Indications for procedure: Recurrent stone former right kidney has been previously scarred with minimal function. Seems to have stone at right proximal ureter Procedure: After informed consent was verified patient was brought to the operating placed in supine position. Anesthesia was administered per protocol. Patient was placed in modified dorsal lithotomy position and prepped and draped in a sterile fashion. Safety pause time-out and side of surgery confirmed. Antibiotics confirmed. Twenty-two Marshallese cystoscope placed through bladder. Ureteric orifice seen and cannulated. Retrograde examination performed. Contrast stopped in upper ureter. Guidewire placed could not be advanced kidney. [place] dilator used to dilate right ureteric orifice Flexible ureteroscopy performed. Ureter was 100% strictured. Laser used to open up 1st powder ureter and small stone encountered imbedded in wall. This removed. Contrast placed not go up to kidney. Appears to be in a full stricture at this junction. Decision made not to proceed further Flexible ureteral scope removed. Rigid cystoscope placed and bladder emptied. He tolerated the procedure well and was transferred to the recovery area Pathology: None Drains: None
[2020-09-19] MEDS: cefTRIAXone sodium 1 GM in 0.9 % Sodium Chloride 50 ML IV (19:57)
[2020-09-19] MEDS: Melatonin 3 MG TABLET PO (20:02)
[2020-09-19] MEDS: traMADoL HCL 50 MG TABLET PO (20:02)
[2020-09-20 03:59] VITALS: BP 138/96; PULSE 73; RESP 20; TEMP 36.7; O2SAT 97
[2020-09-20] MEDS: 0.9 % Sodium Chloride 1,000 ML 100 ML IVCONT (04:28)
[2020-09-20] MEDS: amLODIPine Besylate 5 MG TABLET PO (07:32)
[2020-09-20] MEDS: Phenazopyridine HCL 100 MG TABLET PO ×2 (07:32→11:42)
[2020-09-20 07:39] VITALS: BP 157/95; PULSE 72; RESP 19; TEMP 36.8; O2SAT 97
[2020-09-20 08:23] LABS: Anion Gap 13 (12-20); Blood Urea Nitrogen 14 mg/dL (9-16); Calcium 9.2 mg/dL (8.4-10.2); Carbon Dioxide 22 mmol/L (22-29); Chloride 107 mmol/L (96-108); Creatinine Clr Calc Pharmacy 82.2; Estimated Glomerular Filt Rate > 60; Glucose Random 121 mg/dL (60-115); Potassium 4.3 mmol/L (3.3-5.1); Sodium 138 mmol/L (135-145)
--- NOTE | 2020-09-20 10:00 | MHC.CM.PN ---
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
--- NOTE | 2020-09-20 10:00 | PM.DS ---
DS: Providers Provider Date of Service: 09/20/20 Date of admission: 09/18/20 18:21 Primary care physician: None Physician Consults: 09/18/20 20:37 Consult to Urology Routine Consulting Provider: Andrea Hilliard Reason for consultation: Kidney stone Has provider been notified: No DS: Diagnosis Discharge Diagnosis (1) Renal calculus, right: Status: Acute Problem details: Right proximal ureteric stone with hydronephrosis DS: Medications Discharge Medications Home Medications: Previous Rx's Medication Instructions Recorded amlodipine 5 mg PO DAILY #10 tab 09/20/20 cefuroxime axetil 500 mg PO BID 7 Days #16 tab 09/20/20 DS: Summary Hospital Course Hospital Course: HPI: 40-year-old male with a history of kidney stones who presents to the emergency room with a dysuria that started yesterday associated with urinary frequency he has some back pain but he says that this is not new and is associated with a kidney stone that he has had in the past. In the ED he was noted to be febrile temperature 102.3 degrees tachycardic [place] [id number] and urinalysis was positive. He has been given Levaquin and CT scan is requested. Hospital course: Patient was admitted for sepsis due to urinary tract infection/pyelonephritis in the setting of kidney stone. His fevers resolved blood culture and urine culture have been negative. He was seen in consultation by Dr. Babak Mendez who took him to for cystoscopy unfortunately there was no stone removal patient however is feeling well has not had any further fever or chill WBCs remained normal and he will be transitioned to oral Ceftin for total of 10 days. He is afebrile at this moment. Of note he was also noted to be hypertensive and he probably has untreated hypertension and has been started on Norvasc 5 mg daily and should follow up with a primary care physician for further medication adjustment for optimal blood pressure control. He is exam at this point is unremarkable, he does not have any flank tenderness. Discharge plan discussed with the patient and he is comfortable with the plan. Time Spent with Patient Time attestation: Total time spent providing and/or coordinating discharge services: Discharge coordination time: Greater than 30 minutes Physical Exam Vital Signs: Vital Signs: Last Vital Signs Temp 98.2 F 09/20/20 07:39 Pulse 72 09/20/20 07:39 Resp 19 09/20/20 07:39 BP 157/95 H 09/20/20 07:39 Pulse Ox 97 09/20/20 07:39 Body Mass Index 33.3 Constitutional Awake and Alert, No apparent distress Neck Supple, No lymphadenopathy Cardiovascular RRR, No M/R/G, S1 S2, No S3 S4, No pedal edema Respiratory Lungs clear, No respiratory distress Gastrointestinal Non tender, Non-distended \GUL no flank tenderness Skin No rash Neurological Alert & oriented x3 Psychological Appropriate affect DS: Data Data Completed and Pending Labs on day of discharge: Laboratory Results - last 24 hr 09/20/20 07:48 Sodium 138 Potassium 4.3 Chloride 107 Carbon Dioxide 22 Anion Gap 13 BUN 14 Creatinine 1.26 Estim Creat Clear Calc 82.2 Estimated GFR > 60 Random Glucose 121 H Calcium 9.2 Preliminary micro results at discharge 09/18/20 12:33 Blood Culture - Preliminary Blood - Venous No growth after 24 hours. 09/18/20 12:16 Blood Culture - Preliminary Blood - Venous No growth after 24 hours. Discharge Plan Discharge Anticipated Discharge Date/Time: 09/20/20 09:39 Patient Disposition: Home, Self-Care Discharge Diagnosis: Sepsis, UTI, and kidney stone Referrals: Physician,None [Primary Care Provider] - 1 Week Discharge Medications: New amlodipine 5 mg Tablet 5 mg PO DAILY Qty: 10 RF: 0 cefuroxime axetil 500 mg tablet 500 mg PO BID 7 Days Qty: 16 RF: 0 Discharge Orders: Discharge Order (Routine); Ordered 09/20/20 Ordered By: Hernando Wolfe Diet: advance to usual diet Activity on Discharge: As tolerated Stand Alone Forms: Patient Portal Discharge page, Work/School Release Care Plan Goals: Resolution of sepsis and UTI Health Concerns: Recurrent kidney stone, UTI, elevated blood pressure Plan of Treatment: Take Cefuroxime as directed and follow up with a primary care Doctor in a week Assessment: Kidney stone, UTI, High blood pressure
--- NOTE | 2020-09-20 10:02 | HO.POSTANES ---
Post Anesthesia Evaluation Post Anesthesia Evaluation Vital Signs: Vital Signs Temp Pulse Resp BP Pulse Ox 09/20/20 07:39 98.2 F 72 19 157/95 H 97 09/20/20 03:59 98.1 F 73 20 138/96 H 97 09/19/20 23:37 98.1 F 95 20 135/90 H 97 Anesthesia: General Mental Status: Awake Pain Control: Satisfactory Nausea/Vomiting: None Hydration: Adequate Anesthesia-Related Issues: No Anes. Related Issues
[2020-09-20 11:17] VITALS: BP 135/88; PULSE 97; RESP 18; TEMP 37.1; O2SAT 95
== END 2020-09-20 12:31 | disposition home or self-care (01) | DRG 710 ==
LOC: HO.ED 16:48 → HO.EDOVER 18:43 → HO.S3 23:19
PROVIDERS: Physician Assistant; Urology; Admitting Provider Internal Medicine; Emergency Provider Emergency Medicine; Visit Provider Internal Medicine
PROC: 0T768ZZ Dilation of Right Ureter, Via Natural or Artificial Opening Endoscopic (ICD-10-PCS; principal; 2020-09-19 16:30)
DX: A41.9 Sepsis, unspecified organism (principal); N13.6 Pyonephrosis; Z20.822 Contact with and (suspected) exposure to COVID-19; Z79.899 Other long term (current) drug therapy
CPT/HCPCS: 0241U; 36415; 71045; 74176; 80048; 80076; 81001; 81003; 83605; 83735; 84484; 85025; 85027; 87040; 87086; 93005; 96365; 99285; C1769; J0696; J1100; J1885; J1956; J2250; J2405; J3010; Q9967

== ENCOUNTER 2021-04-26 12:37 | Emergency (ER) | payer BC, SELFPAY ==
--- NOTE | ~2021-04-26 | XR_ITS ---
EXAMINATION: XR CHEST CLINICAL INFORMATION: Cough, fever, chest tightness. COMPARISON: 09/18/2020 TECHNIQUE: 2 views of the chest were obtained. FINDINGS: Situs inversus again noted. The lungs are well expanded. There is no focal consolidation, edema, or effusion. No pneumothorax. The cardiomediastinal silhouette is within normal limits. No acute osseous abnormality. XR/XR chest 2V IMPRESSION: No acute pulmonary finding. Sinus inversus.
--- NOTE | 2021-04-26 12:39 | ECG_ITS ---
Test Reason : chest tightness Blood Pressure : / mmHG Vent. Rate : 110 BPM Atrial Rate : 110 BPM P-R Int : 132 ms QRS Dur : 088 ms QT Int : 348 ms P-R-T Axes : 000 106 089 degrees QTc Int : 470 ms Sinus tachycardia Lateral infarct age indeterminate Unusual P wave axis in I aVL which is seen with limb leads reversal but has been present in multiple Ecgs Abnormal ECG When compared with ECG of 18-SEP-2020 17:40, No significant change was found Referred By: Generic ED Physician Electronically Signed By:Will Hinton
[2021-04-26 12:51] VITALS: BP 181/110; PULSE 115; RESP 20; TEMP 37.4; O2SAT 96; BMI 32.3
[2021-04-26 15:37] LABS: Influenza B PCR INVALID (Negative); Resp Syncy Virus RNA Qual PCR INVALID (Negative); SARS COV2 PCR INHOUSE INVALID (Negative)
[2021-04-26 15:49] LABS: Influenza A PCR INVALID (Negative)
[2021-04-26 15:51] VITALS: BP 162/121; PULSE 107; RESP 20; TEMP 37.9; O2SAT 96
--- NOTE | 2021-04-26 16:03 | ED.CHESTPAIN ---
HPI - Chest Pain General Chief Complaint: General Medical Stated Complaint: chest tightness Time Seen by Provider: 04/26/21 19:39 Source: patient Mode of arrival: ambulatory Limitations: no limitations History of Present Illness HPI narrative: 41-year-old male presents with chest tightness, cough, body aches, chills, and headache. States that he has pain that radiates to the left arm from his sternum. He does have chronically elevated blood pressure but has not taken any blood pressure medications since September. Has not seen a physician since his last emergency room visit in September. MD complaint: chest pain, chest heaviness and chest discomfort Onset (ago): day(s) (2) Timing of current episode: constant Prior episodes: Yes Onset: during rest Pain location: substernal and left chest Pain radiation: left arm and neck Severity: moderate Pain scale (0-10): 5 Quality: aching and heaviness Relieving factors: nothing Exacerbating factors: exertion, palpation and movement Context: recent illness Associated symptoms: dyspnea Treatment prior to arrival: none Risk Factors Coronary artery disease risk factors: hypertension Thoracic aortic dissection risk factors: none Pulmonary embolism risk factors: morbid obesity Related Data Previous Rx's Medication Instructions Recorded amlodipine 5 mg tablet 5 mg PO DAILY #10 tab 09/20/20 cefuroxime axetil 500 mg tablet 500 mg PO BID 7 Days #16 tab 09/20/20 amlodipine 5 mg tablet 5 mg PO DAILY #30 tab 04/26/21 Allergies Allergy/AdvReac Type Severity Reaction Status Date / Time No Known Allergies Allergy Verified 04/26/21 12:55 [No Known Allergies*] Review of Systems Review of Systems: Constitutional: No Weight loss, No Fever, positive Chills, No Night Sweats, No Fatigue, No Malaise ENT/Mouth: No Hearing loss, No Ear Pain, No Nasal Congestion, No Sinus Pain, No Hoarseness, No sore throat, No Rhinorrhea, No Swallowing Difficulty Eyes: No Eye Pain, No Swelling, No Redness, No Foreign Body, No Discharge, No Vision Changes Cardiovascular: Positive Chest Pain, positive SOB, no Dyspnea on Exertion, No Orthopnea, No Edema, No Palpitations Respiratory: Positive Cough, No Sputum, No Wheezing, No Smoke Exposure, No Dyspnea Gastrointestinal: No Nausea, No Vomiting, No Diarrhea, No abdominal Pain, No Hematochezia, No Melena Genitourinary: No irregular bleeding, No Dysuria, No Urinary Frequency, No Hematuria, No Urinary Incontinence, No Urgency, No Flank Pain, No Urinary Flow Changes, No Hesitancy Musculoskeletal: No joint pain, No Myalgias, No Joint Swelling Skin: No Skin Lesions, No rash Neuro: No Weakness, No Numbness, No Paresthesias, No Loss of Consciousness, No Dizziness, No Headache Psych: No Anxiety/Panic, No Depression, No SI/HI/AH/VH Heme/Lymph: No Bruising, No Bleeding,No Lymphadenopathy Endocrine: No Polyuria, No Polydipsia, No Temperature Intolerance Yes all other systems are reviewed and are negative [facility] Past Medical History Attestation statement: The following information was validated with the patient. Source: old records reviewed Medical History Abnormal cystoscopy Chronic kidney disease History of renal stone Social History Social History Household Members: None Housing: House Do you presently have visiting nurse or other home services: No Second Hand Smoke Exposure: No Advance Directives: No Advance Directives Information Provided: Yes service: No Current occupational status: employed Physical Exam Vital Signs: Vital Signs: Last Vital Signs Temp 98.8 F 04/26/21 19:11 Pulse 95 04/26/21 19:11 Resp 20 04/26/21 19:11 BP 154/94 H 04/26/21 19:11 Pulse Ox 95 04/26/21 19:11 BMI result Body Mass Index 32.3 Appearance: Alert. Oriented X3. No acute distress. Eyes: Pupils equal, round and reactive to light. EOMI. No nystagmus. ENT: Pharynx normal. Moist mucous membranes. Neck: Normal inspection. Neck supple. CVS: Tachycardic heart rate and rhythm. Apical pulse equal pulses to extremities. Brisk capillary refill. Equal pedal pulses. Reproducible chest pain on palpation. Respiratory: No respiratory distress. Lung sounds clear to auscultation all lobes. Abdomen: Soft and nontender. Morbidly obese. Skin: Skin warm and dry. Normal skin color. Normal skin turgor. Extremities: No lower extremity edema. Moves all extremities against resistance. Neuro: No motor deficit. No sensory deficit. Cranial nerves 2-12 intact. Course Course Course Narrative: 41-year-old male presents with upper respiratory symptoms and chest pain. Has a history of hypertension, blood pressure is elevated 181/110 while in the emergency department. Has not taken blood pressure medications since September, and has not established primary care will rule out ACS. Test for COVID. 4:40 p.m. troponin elevated at 42.9. Has a history of chronically elevated troponins dating back to Sep 18 2020 which was 43.6. Will repeat 2nd troponin. 6:15 p.m. COVID tested positive. Patient stated that he would be discharged home with supportive measures. He appears nontoxic, even unlabored respirations, O2 saturation 97% on room air. Patient does understand that if symptoms worsen that he should return to the emergency department for further evaluation. 6:47 p.m. 2nd troponin is 46.3, no delta wave, no indication of ACS at this time. EKG is sinus tach. No indication of ST elevation or depression or indication of ischemia. We will prescribe amlodipine per prior prescription. Patient verbalized understanding of and agrees to plan of care discharge home. MDM - Chest Pain MDM Narrative Medical decision making narrative: COVID-19, pneumonia, bronchitis Differential Diagnosis Differential diagnosis: Likely pneumothorax, atypical chest pain, st elevation myocardial infarction, costochondritis and chest pain Medical Records Data Attestation: I reviewed the patient's medical records. Lab Data Attestation: I reviewed the patient's lab results. Result diagrams: 04/26/21 16:43 04/26/21 16:43 Labs: Lab Results 04/26/21 04/26/21 04/26/21 Range/Units 13:04 16:43 16:43 WBC 10.1 (4.8-10.8) X10*3/uL RBC 5.76 (4.60-5.80) X10*6/uL Hgb 15.3 (14.0-18.0) g/dl Hct 47.1 (42.0-52.0) % MCV 81.8 (80.0-98.0) fL MCH 26.6 L (27.0-33.0) pg MCHC 32.5 (31.0-36.0) g/dl RDW 13.4 (11.0-16.0) % Plt Count 187 (160-400) X10*3/uL MPV 10.0 (9.4-12.4) fL Immature Gran % (Auto) 0.3 (0.0-0.4) % Neut % (Auto) 73.2 H (45-73) % Lymph % (Auto) 15.6 L (20-40) % [place] % (Auto) 10.3 (2-11) % Eos % (Auto) 0.2 (0-4) % Baso % (Auto) 0.4 (0-2) % Lymph # (Auto) 1.6 (1.2-4.9) X10*3/uL [place] # (Auto) 1.0 (0.1-1.2) X10*3/uL Eos # (Auto) 0.0 (0.0-0.4) X10*3/uL Baso # (Auto) 0.0 (0.0-0.2) X10*3/uL Abs Immat Gran (auto) 0.03 (0.00-0.03) X10*3/uL Absolute Neuts (auto) 7.4 (2.0-8.3) x10*3/uL Absolute Nucleated RBC 0.000 (0.0-0.012) X10*3/uL Nucleated RBC % (auto) 0.0 (0.0-0.2) /100WBC Sodium (135-145) mmol/L Potassium (3.3-5.1) mmol/L Chloride (96-108) mmol/L Carbon Dioxide (22-29) mmol/L Anion Gap (12-20) BUN (9-16) mg/dL Creatinine (0.5-1.4) mg/dL Estim Creat Clear Calc Estimated GFR POC Glucose (60-115) mg/dL Random Glucose (60-115) mg/dL Lactic Acid (0.5-2.0) mmol/L Calcium (8.4-10.2) mg/dL Total Bilirubin (0.0-1.0) mg/dL Direct Bilirubin (0.0-0.5) mg/dL AST (5-37) U/L ALT (0-40) U/L Alkaline Phosphatase (39-117) U/L Troponin I High Sens (<3.5-35.0) ng/L Total Protein (6.5-8.0) g/dL Albumin (3.5-5.0) g/dL Lipase (8-78) U/L Urine Color Urine Appearance Urine pH (5.0-8.0) Ur Specific [place] (1.005-1.025) Urine Protein (NEG-TRACE) MG/DL Urine Glucose (UA) (NEG) MG/DL Urine Ketones (NEG) MG/DL Urine Blood (NEG) Urine Nitrite (NEG) Ur Leukocyte Esterase (NEG) Urine RBC (0) /HPF Urine WBC (0-4) /HPF Ur Squamous Epith Cells /LPF Urine Bacteria /LPF Influenza Type A (PCR) INVALID NEGATIVE (Negative) Influenza Type B (PCR) INVALID NEGATIVE (Negative) RSV RNA Qual (PCR) INVALID NEGATIVE (Negative) SARS-CoV-2 RNA (RT-PCR) INVALID POSITIVE A (Negative) 04/26/21 04/26/21 04/26/21 Range/Units 16:43 16:43 16:43 WBC (4.8-10.8) X10*3/uL RBC (4.60-5.80) X10*6/uL Hgb (14.0-18.0) g/dl Hct (42.0-52.0) % MCV (80.0-98.0) fL MCH (27.0-33.0) pg MCHC (31.0-36.0) g/dl RDW (11.0-16.0) % Plt Count (160-400) X10*3/uL MPV (9.4-12.4) fL Immature Gran % (Auto) (0.0-0.4) % Neut % (Auto) (45-73) % Lymph % (Auto) (20-40) % [place] % (Auto) (2-11) % Eos % (Auto) (0-4) % Baso % (Auto) (0-2) % Lymph # (Auto) (1.2-4.9) X10*3/uL [place] # (Auto) (0.1-1.2) X10*3/uL Eos # (Auto) (0.0-0.4) X10*3/uL Baso # (Auto) (0.0-0.2) X10*3/uL Abs Immat Gran (auto) (0.00-0.03) X10*3/uL Absolute Neuts (auto) (2.0-8.3) x10*3/uL Absolute Nucleated RBC (0.0-0.012) X10*3/uL Nucleated RBC % (auto) (0.0-0.2) /100WBC Sodium 139 (135-145) mmol/L Potassium 3.8 (3.3-5.1) mmol/L Chloride 106 (96-108) mmol/L Carbon Dioxide 23 (22-29) mmol/L Anion Gap 14 (12-20) BUN 14 (9-16) mg/dL Creatinine 1.51 H (0.5-1.4) mg/dL Estim Creat Clear Calc 69.2 Estimated GFR 52 POC Glucose (60-115) mg/dL Random Glucose 91 (60-115) mg/dL Lactic Acid (0.5-2.0) mmol/L Calcium 9.3 (8.4-10.2) mg/dL Total Bilirubin 0.5 (0.0-1.0) mg/dL Direct Bilirubin 0.2 (0.0-0.5) mg/dL AST 47 H D (5-37) U/L ALT 74 H (0-40) U/L Alkaline Phosphatase 122 H (39-117) U/L Troponin I High Sens 42.9 H (<3.5-35.0) ng/L Total Protein 7.4 (6.5-8.0) g/dL Albumin 4.2 (3.5-5.0) g/dL Lipase 43 (8-78) U/L Urine Color Urine Appearance Urine pH (5.0-8.0) Ur Specific [place] (1.005-1.025) Urine Protein (NEG-TRACE) MG/DL Urine Glucose (UA) (NEG) MG/DL Urine Ketones (NEG) MG/DL Urine Blood (NEG) Urine Nitrite (NEG) Ur Leukocyte Esterase (NEG) Urine RBC (0) /HPF Urine WBC (0-4) /HPF Ur Squamous Epith Cells /LPF Urine Bacteria /LPF Influenza Type A (PCR) (Negative) Influenza Type B (PCR) (Negative) RSV RNA Qual (PCR) (Negative) SARS-CoV-2 RNA (RT-PCR) (Negative) 04/26/21 04/26/21 04/26/21 Range/Units 16:43 16:51 17:16 WBC (4.8-10.8) X10*3/uL RBC (4.60-5.80) X10*6/uL Hgb (14.0-18.0) g/dl Hct (42.0-52.0) % MCV (80.0-98.0) fL MCH (27.0-33.0) pg MCHC (31.0-36.0) g/dl RDW (11.0-16.0) % Plt Count (160-400) X10*3/uL MPV (9.4-12.4) fL Immature Gran % (Auto) (0.0-0.4) % Neut % (Auto) (45-73) % Lymph % (Auto) (20-40) % [place] % (Auto) (2-11) % Eos % (Auto) (0-4) % Baso % (Auto) (0-2) % Lymph # (Auto) (1.2-4.9) X10*3/uL [place] # (Auto) (0.1-1.2) X10*3/uL Eos # (Auto) (0.0-0.4) X10*3/uL Baso # (Auto) (0.0-0.2) X10*3/uL Abs Immat Gran (auto) (0.00-0.03) X10*3/uL Absolute Neuts (auto) (2.0-8.3) x10*3/uL Absolute Nucleated RBC (0.0-0.012) X10*3/uL Nucleated RBC % (auto) (0.0-0.2) /100WBC Sodium (135-145) mmol/L Potassium (3.3-5.1) mmol/L Chloride (96-108) mmol/L Carbon Dioxide (22-29) mmol/L Anion Gap (12-20) BUN (9-16) mg/dL Creatinine (0.5-1.4) mg/dL Estim Creat Clear Calc Estimated GFR POC Glucose 85 (60-115) mg/dL Random Glucose (60-115) mg/dL Lactic Acid 1.0 (0.5-2.0) mmol/L Calcium (8.4-10.2) mg/dL Total Bilirubin (0.0-1.0) mg/dL Direct Bilirubin (0.0-0.5) mg/dL AST (5-37) U/L ALT (0-40) U/L Alkaline Phosphatase (39-117) U/L Troponin I High Sens (<3.5-35.0) ng/L Total Protein (6.5-8.0) g/dL Albumin (3.5-5.0) g/dL Lipase (8-78) U/L Urine Color YELLOW Urine Appearance HAZY Urine pH 6.0 (5.0-8.0) Ur Specific [place] >= 1.030 H (1.005-1.025) Urine Protein 1+ H (NEG-TRACE) MG/DL Urine Glucose (UA) NEG (NEG) MG/DL Urine Ketones NEG (NEG) MG/DL Urine Blood 3+ H (NEG) Urine Nitrite NEG (NEG) Ur Leukocyte Esterase NEG (NEG) Urine RBC 15-29 H (0) /HPF Urine WBC 1-4 (0-4) /HPF Ur Squamous Epith Cells 2+ /LPF Urine Bacteria NONE /LPF Influenza Type A (PCR) (Negative) Influenza Type B (PCR) (Negative) RSV RNA Qual (PCR) (Negative) SARS-CoV-2 RNA (RT-PCR) (Negative) 04/26/21 Range/Units 18:47 WBC (4.8-10.8) X10*3/uL RBC (4.60-5.80) X10*6/uL Hgb (14.0-18.0) g/dl Hct (42.0-52.0) % MCV (80.0-98.0) fL MCH (27.0-33.0) pg MCHC (31.0-36.0) g/dl RDW (11.0-16.0) % Plt Count (160-400) X10*3/uL MPV (9.4-12.4) fL Immature Gran % (Auto) (0.0-0.4) % Neut % (Auto) (45-73) % Lymph % (Auto) (20-40) % [place] % (Auto) (2-11) % Eos % (Auto) (0-4) % Baso % (Auto) (0-2) % Lymph # (Auto) (1.2-4.9) X10*3/uL [place] # (Auto) (0.1-1.2) X10*3/uL Eos # (Auto) (0.0-0.4) X10*3/uL Baso # (Auto) (0.0-0.2) X10*3/uL Abs Immat Gran (auto) (0.00-0.03) X10*3/uL Absolute Neuts (auto) (2.0-8.3) x10*3/uL Absolute Nucleated RBC (0.0-0.012) X10*3/uL Nucleated RBC % (auto) (0.0-0.2) /100WBC Sodium (135-145) mmol/L Potassium (3.3-5.1) mmol/L Chloride (96-108) mmol/L Carbon Dioxide (22-29) mmol/L Anion Gap (12-20) BUN (9-16) mg/dL Creatinine (0.5-1.4) mg/dL Estim Creat Clear Calc Estimated GFR POC Glucose (60-115) mg/dL Random Glucose (60-115) mg/dL Lactic Acid (0.5-2.0) mmol/L Calcium (8.4-10.2) mg/dL Total Bilirubin (0.0-1.0) mg/dL Direct Bilirubin (0.0-0.5) mg/dL AST (5-37) U/L ALT (0-40) U/L Alkaline Phosphatase (39-117) U/L Troponin I High Sens 46.3 H (<3.5-35.0) ng/L Total Protein (6.5-8.0) g/dL Albumin (3.5-5.0) g/dL Lipase (8-78) U/L Urine Color Urine Appearance Urine pH (5.0-8.0) Ur Specific [place] (1.005-1.025) Urine Protein (NEG-TRACE) MG/DL Urine Glucose (UA) (NEG) MG/DL Urine Ketones (NEG) MG/DL Urine Blood (NEG) Urine Nitrite (NEG) Ur Leukocyte Esterase (NEG) Urine RBC (0) /HPF Urine WBC (0-4) /HPF Ur Squamous Epith Cells /LPF Urine Bacteria /LPF Influenza Type A (PCR) (Negative) Influenza Type B (PCR) (Negative) RSV RNA Qual (PCR) (Negative) SARS-CoV-2 RNA (RT-PCR) (Negative) Imaging Data Chest x-ray: Attestation: I personally reviewed and interpreted this imaging study as follows: Radiologist's impression: EXAMINATION: XR CHEST CLINICAL INFORMATION: Cough, fever, chest tightness. COMPARISON: 09/18/2020 TECHNIQUE: 2 views of the chest were obtained. FINDINGS: Situs inversus again noted. The lungs are well expanded. There is no focal consolidation, edema, or effusion. No pneumothorax. The cardiomediastinal silhouette is within normal limits. No acute osseous abnormality. XR/XR chest 2V IMPRESSION: No acute pulmonary finding. Sinus inversus. ECG Data ECG #1: Attestation: I personally reviewed and interpreted this ECG as follows: ECG interpretation date: 04/26/21 ECG interpretation time: 12:58 Prior ECG tracings: available for review Interpretation: Vent. Rate : 110 BPM ? ? Atrial Rate : 110 BPM ?? P-R Int : 132 ms? QRS Dur : 088 ms ? ? QT Int : 348 ms ? ? ? P-R-T Axes : 000 106 089 degrees ?? QTc Int : 470 ms ? Sinus tachycardia Rightward axis Borderline ECG When compared with ECG of 18-SEP-2020 17:40, No significant change was found Discharge Plan Discharge Clinical Impression: COVID-19 Hypertension Qualifiers: Hypertension type: primary hypertension Qualified Code(s): I10 - Essential (primary) hypertension Patient Disposition: Home, Self-Care Instructions: Covid-19 Viral Syndrome and Novel Coronavirus (ED) Hey/Ath, Heart Healthy Diet (ED), Hypertension (ED) Additional Instructions: Your evaluated for respiratory symptoms, you tested positive for COVID-19. Please maintain social isolation per State and Federal guidelines. It is your responsibility to maintain these guidelines. Drink plenty of fluids. Alternate Motrin and Tylenol as needed for pain management and fever control. Write down what time he take these medications to prevent accidental overdose. Please take your amlodipine as directed. Take this medication daily. Please follow protocol for monoclonal antibodies for COVID-19. Thank you for choosing this emergency department for evaluation. Please follow-up with primary care physician as needed. Return to the emergency department for any new, concerning, or worsening symptoms. Prescriptions: New amlodipine 5 mg tablet 5 mg PO DAILY Qty: 30 RF: 3 No Action amlodipine 5 mg Tablet 5 mg PO DAILY Qty: 10 RF: 0 cefuroxime axetil 500 mg tablet 500 mg PO BID 7 Days Qty: 16 RF: 0 Interventions: ED Discharge Assessment Last Done: 04/26/21 20:00
[2021-04-26 16:51] LABS: MANUAL DIFF FLAG NO
[2021-04-26 16:52] LABS: Basophils Percent Auto 0.4 % (0-2); Eosinophils Percent Auto 0.2 % (0-4); Hematocrit 47.1 % (42.0-52.0); Hemoglobin 15.3 g/dl (14.0-18.0); Imm Gran Abs Auto 0.03 X10*3/uL (0.00-0.03); Imm Gran Pct Auto 0.3 % (0.0-0.4); Lymphocytes Absolute Auto 1.6 X10*3/uL (1.2-4.9); Lymphocytes Percent Auto 15.6 % (20-40); Mean Corpuscular HGB Conc 32.5 g/dl (31.0-36.0); Mean Corpuscular Hemoglobin 26.6 pg (27.0-33.0); Mean Corpuscular Volume 81.8 fL (80.0-98.0); Monocytes Percent Auto 10.3 % (2-11); Neutrophils Absolute Auto 7.4 x10*3/uL (2.0-8.3); Neutrophils Percent Auto 73.2 % (45-73); Platelet Count 187 X10*3/uL (160-400); Red Blood Count 5.76 X10*6/uL (4.60-5.80); Red Cell Distribution Width 13.4 % (11.0-16.0); White Blood Count 10.1 X10*3/uL (4.8-10.8)
[2021-04-26 16:54] LABS: Glucose, Whole Blood 85 mg/dL (60-115)
[2021-04-26 17:06] LABS: Anion Gap 14 (12-20); Blood Urea Nitrogen 14 mg/dL (9-16); Calcium 9.3 mg/dL (8.4-10.2); Carbon Dioxide 23 mmol/L (22-29); Chloride 106 mmol/L (96-108); Creatinine Clr Calc Pharmacy 69.2; Estimated Glomerular Filt Rate 52; Glucose Random 91 mg/dL (60-115); Potassium 3.8 mmol/L (3.3-5.1); Sodium 139 mmol/L (135-145)
[2021-04-26 17:07] LABS: Alanine Aminotransferase 74 U/L (0-40); Albumin Level 4.2 g/dL (3.5-5.0); Alkaline Phosphatase 122 U/L (39-117); Aspartate Amino Transferase 47 U/L (5-37); Bilirubin Direct 0.2 mg/dL (0.0-0.5); Bilirubin Total 0.5 mg/dL (0.0-1.0); Lipase 43 U/L (8-78); Total Protein 7.4 g/dL (6.5-8.0)
[2021-04-26 17:11] LABS: Troponin-I High Sensitivity 42.9 ng/L (<3.5-35.0)
[2021-04-26] MEDS: 0.9 % Sodium Chloride 1,000 ML 999 ML IVCONT (17:18)
[2021-04-26 17:25] LABS: Appearance Urine HAZY; Color Urine YELLOW; Glucose Urine UA NEG (NEG); Leukocyte Esterase Urine NEG (NEG); Nitrite Urine NEG (NEG); Specific Gravity - Urine >= 1.030 (1.005-1.025); UACC Culture Trigger NO; Urine Blood 3+ (NEG); Urine Ketones NEG (NEG); Urine Protein 1+ MG/DL (NEG-TRACE)
[2021-04-26 17:28] LABS: Influenza A PCR NEGATIVE (Negative); Influenza B PCR NEGATIVE (Negative); Resp Syncy Virus RNA Qual PCR NEGATIVE (Negative); SARS COV2 PCR INHOUSE POSITIVE (Negative)
[2021-04-26] MEDS: Acetaminophen 325 MG TABLET 650 MG PO (17:29)
[2021-04-26 18:11] LABS: Squamous Epithelial Cell Urine 2+ /LPF
[2021-04-26 19:11] VITALS: BP 154/94; PULSE 95; RESP 20; TEMP 37.1; O2SAT 95
[2021-04-26 19:21] LABS: Troponin-I High Sensitivity 46.3 ng/L (<3.5-35.0)
== END 2021-04-26 20:00 | disposition home or self-care (01) ==
PROVIDERS: Nurse Practitioner Family; Emergency Provider Emergency Medicine
DX: U07.1 COVID-19 (principal); I10 Essential (primary) hypertension; R00.0 Tachycardia, unspecified; R50.9 Fever, unspecified
CPT/HCPCS: 0241U; 36415; 71046; 80048; 80076; 81001; 82947; 83605; 83690; 84484; 85025; 87040; 93005; 96360; 99284

== ENCOUNTER 2021-05-04 13:54 | Outpatient (REF) | payer BC, SELFPAY ==
[2021-05-04 15:22] LABS: IDNOW Serial# 16C4AD1C
[2021-05-04 15:30] LABS: COVID-19 Test Positive (Negative)
== END 2021-05-04 13:55 | disposition home or self-care (01) ==
LOC: HO.LAB 13:54
PROVIDERS: Visit Provider Internal Medicine
DX: Z20.822 Contact with and (suspected) exposure to COVID-19 (principal)
CPT/HCPCS: 36415; 87635; C9803

== ENCOUNTER 2021-05-08 10:56 | Outpatient (REF) | payer BC, SELFPAY | END 2021-05-08 10:57 | disposition home or self-care (01) | LOC: HO.LAB 10:56 | PROVIDERS: Visit Provider Internal Medicine | DX: Z20.822 Contact with and (suspected) exposure to COVID-19 (principal) | CPT/HCPCS: C9803; U0003; U0005 ==

== ENCOUNTER 2021-05-31 19:59 | Emergency (ER) | payer BC, SELFPAY ==
--- NOTE | ~2021-05-31 | CT_ITS ---
EXAMINATION: CT ABDOMEN AND PELVIS WITHOUT CONTRAST CLINICAL INFORMATION: Right flank pain radiating to right testicle. COMPARISON: CT dated 09/18/2020. Nuclear medicine renal scan dated 12/22/2018. TECHNIQUE: Multidetector volumetric imaging was performed from the superior aspect of the liver through the pubic symphysis. Sagittal and coronal reformatted images were obtained on the technologist's workstation. This CT examination was performed using dose optimization techniques as appropriate, variously including the following: *Automated exposure control *Adjustment of mA and/or kV according to patient size (this includes techniques or standardized protocols for targeted exams where dose is matched to indication/reason for exam; i.e. extremities or head) *Use of iterative reconstruction technique DLP: 932 mGy-cm FINDINGS: Situs inversus totalis redemonstrated. LUNG BASES: The visualized lung bases are unremarkable. Dextrocardia. LIVER, GALLBLADDER, AND BILIARY TREE: Liver normal in size, contour and morphology. Diffuse hepatic steatosis. There are couple simple fluid attenuating benign liver cysts which are unchanged. No suspicious liver lesions.. Gallbladder unremarkable. PANCREAS: Unremarkable. SPLEEN: Unremarkable. ADRENAL GLANDS: Unremarkable. KIDNEYS AND URETERS: Again seen is severe right hydronephrosis with markedly attenuated right renal cortex. There are 2 stable 3 mm calculi within the proximal right ureter/UPJ, stable in size and appearance from the previous exam. Left kidney and ureter unremarkable. No perinephric abnormalities. BLADDER: Unremarkable. GASTROINTESTINAL TRACT: The small and large bowel are unremarkable. The appendix is unremarkable. ABDOMINAL WALL: No significant hernia is appreciated. LYMPH NODES: Normal. VASCULAR: Unremarkable. PELVIC VISCERA: Unremarkable. OSSEOUS STRUCTURES: No acute or suspicious osseous abnormalities. CT/CT abdomen pelvis wo con IMPRESSION: * Stable severe chronic right hydronephrosis with markedly attenuated right renal cortex. There are couple 2-3 mm calculi within the proximal right ureter at the ureteropelvic junction which are unchanged from the previous exam. A previous nuclear medicine study on 12/22/2018 showed essentially no right renal function. * Hepatic steatosis.
[2021-05-31 21:25] VITALS: BP 186/120; PULSE 89; RESP 20; TEMP 37.2; O2SAT 97; BMI 43.2
[2021-05-31 21:44] LABS: Basophils Percent Auto 0.2 % (0-2); Eosinophils Absolute Auto 0.2 X10*3/uL (0.0-0.4); Eosinophils Percent Auto 1.7 % (0-4); Hematocrit 44.9 % (42.0-52.0); Hemoglobin 14.5 g/dl (14.0-18.0); Imm Gran Abs Auto 0.07 X10*3/uL (0.00-0.03); Imm Gran Pct Auto 0.6 % (0.0-0.4); Lymphocytes Absolute Auto 3.5 X10*3/uL (1.2-4.9); Lymphocytes Percent Auto 29.1 % (20-40); MANUAL DIFF FLAG NO; Mean Corpuscular HGB Conc 32.3 g/dl (31.0-36.0); Mean Corpuscular Hemoglobin 26.5 pg (27.0-33.0); Mean Corpuscular Volume 81.9 fL (80.0-98.0); Mean Platelet Volume 9.5 fL (9.4-12.4); Monocytes Absolute Auto 0.8 X10*3/uL (0.1-1.2); Monocytes Percent Auto 6.8 % (2-11); Neutrophils Absolute Auto 7.5 x10*3/uL (2.0-8.3); Neutrophils Percent Auto 61.6 % (45-73); Platelet Count 223 X10*3/uL (160-400); Red Blood Count 5.48 X10*6/uL (4.60-5.80); Red Cell Distribution Width 13.1 % (11.0-16.0); White Blood Count 12.1 X10*3/uL (4.8-10.8)
[2021-05-31 22:00] LABS: Alanine Aminotransferase 46 U/L (0-40); Albumin Level 4.3 g/dL (3.5-5.0); Alkaline Phosphatase 143 U/L (39-117); Anion Gap 11 (12-20); Aspartate Amino Transferase 23 U/L (5-37); Bilirubin Total 0.3 mg/dL (0.0-1.0); Blood Urea Nitrogen 12 mg/dL (9-16); Calcium 9.5 mg/dL (8.4-10.2); Carbon Dioxide 26 mmol/L (22-29); Chloride 108 mmol/L (96-108); Creatinine Clr Calc Pharmacy 88.6; Estimated Glomerular Filt Rate 60; Glucose Random 120 mg/dL (60-115); Sodium 141 mmol/L (135-145); Total Protein 7.5 g/dL (6.5-8.0)
--- NOTE | 2021-06-01 04:53 | ED_ITS ---
HPI - Back Pain/Injury General Chief Complaint: Abdominal Pain Stated Complaint: back pain ? kidney issue Time Seen by Provider: 06/01/21 04:52 Source: patient Mode of arrival: ambulatory Limitations: no limitations History of Present Illness HPI Narrative: patient with 4 days of pain, feels like his is unable to walk secondary to pain. Patient denies injury. patient with right flank radiating to the right testicle. patient denies hematuria or dysuria Pertinent past history: prior back pain Onset (ago): day(s) Timing: constant Severity: moderate Quality: aching Related Data Previous Rx's Medication Instructions Recorded amlodipine 5 mg tablet 5 mg PO DAILY #10 tab 09/20/20 cefuroxime axetil 500 mg tablet 500 mg PO BID 7 Days #16 tab 09/20/20 amlodipine 5 mg tablet 5 mg PO DAILY #30 tab 04/26/21 acetaminophen 500 mg tablet 1,000 mg PO Q6H PRN #30 tab 06/01/21 (Tylenol Extra Strength) cyclobenzaprine 10 mg tablet 10 mg PO TID #10 tab 06/01/21 Allergies Allergy/AdvReac Type Severity Reaction Status Date / Time No Known Allergies Allergy Verified 04/26/21 12:55 [No Known Allergies*] Review of Systems Constitutional: Constitutional: Reports no additional constitutional complaints Eyes: Eyes: Reports no additional eye complaints ENT: Denies dizziness Cardiovascular: Cardiovascular: Reports no additional cardiovascular com plaints Respiratory: Respiratory: Reports as per HPI Gastrointestinal: Gastrointestinal: Reports no additional gastrointestinal complaints Musculoskeletal: Musculoskeletal: Reports no additional musculoskeletal complaints Integumentary/Breasts: Skin/Breast: Denies rash Neurologic: Reports system reviewed and no additional complaints, except as documented, Denies dizziness and Denies Sensory deficit (Neuro) Psychiatric: Psychiatric: Denies anxiety [facility] Past Medical History Medical History Abnormal cystoscopy Chronic kidney disease History of renal stone Social History Social History Household Members: None Housing: House Do you presently have visiting nurse or other home services: No Second Hand Smoke Exposure: No Advance Directives: No service: No Current occupational status: employed Physical Exam Vital Signs: Vital Signs: Last Vital Signs Temp 98.9 F 05/31/21 21:25 Pulse 79 06/01/21 06:23 Resp 18 06/01/21 06:23 BP 150/84 H 06/01/21 06:23 Pulse Ox 98 06/01/21 06:23 BMI result Body Mass Index 43.2 Const: General: healthy appearing Nutritional Appearance: average body habitus Orientation/consciousness: oriented to person and patient oriented x3 Limitations: no limitations HENMT: Head: Yes normal to inspection Ears: external ears normal General nose exam: Normal external nose present Mouth: Normal oral and palatal mucosa present and oropharynx normal Throat: Yes posterior oropharynx normal Eyes: General: appearance normal, both eyes and all related structures Neck: Other: supple Neck: Yes normal visual inspection Chest: Chest palpation & inspection: normal inspection of the chest Resp: Auscultation: clear to auscultation bilaterally Cardio: Jugular venous distension: no JVD Rate: regular rate Rhythm: regular rhythm Heart sounds: S1 normal heart sound present and S2 normal heart sound present GI: Inspection: Yes normal to inspection Palpation (GI): Soft to palpation, nontender and No hepatosplenomegaly present Auscultation: normal bowel sounds Back/Spine/Pelvis: Other: lumbar and sacral pain to palpation Skin: General skin exam: no rashes or lesions noted Neuro: General: oriented to person and patient oriented x3 Cranial nerves: Yes CN's II-XII intact bilaterally Motor exam (neuro): 5/5 motor strength present throughout Sensory Exam: No Sensory deficit (Neuro) Extrem: General: Yes normal to inspection Psych: Appearance: grossly normal Course Reevaluation(s) Reevaluation #1: Discussed with Dr. Hilliard, the hydro is old, urine not infected, the pain most likely muscular and not secondary to urology of origin. Will dc on tylenol and flexeril Time: 07:17 MDM - Back Pain/Injury Lab Data Result diagrams: 05/31/21 21:38 05/31/21 21:38 Labs: Lab Results 05/31/21 05/31/21 06/01/21 Range/Units 21:38 21:38 05:23 WBC 12.1 H (4.8-10.8) X10*3/uL RBC 5.48 (4.60-5.80) X10*6/uL Hgb 14.5 (14.0-18.0) g/dl Hct 44.9 (42.0-52.0) % MCV 81.9 (80.0-98.0) fL MCH 26.5 L (27.0-33.0) pg MCHC 32.3 (31.0-36.0) g/dl RDW 13.1 (11.0-16.0) % Plt Count 223 (160-400) X10*3/uL MPV 9.5 (9.4-12.4) fL Immature Gran % (Auto) 0.6 H (0.0-0.4) % Neut % (Auto) 61.6 (45-73) % Lymph % (Auto) 29.1 (20-40) % [place] % (Auto) 6.8 (2-11) % Eos % (Auto) 1.7 (0-4) % Baso % (Auto) 0.2 (0-2) % Lymph # (Auto) 3.5 (1.2-4.9) X10*3/uL [place] # (Auto) 0.8 (0.1-1.2) X10*3/uL Eos # (Auto) 0.2 (0.0-0.4) X10*3/uL Baso # (Auto) 0.0 (0.0-0.2) X10*3/uL Abs Immat Gran (auto) 0.07 H (0.00-0.03) X10*3/uL Absolute Neuts (auto) 7.5 (2.0-8.3) x10*3/uL Absolute Nucleated RBC 0.000 (0.0-0.012) X10*3/uL Nucleated RBC % (auto) 0.0 (0.0-0.2) /100WBC Sodium 141 (135-145) mmol/L Potassium 4.0 (3.3-5.1) mmol/L Chloride 108 (96-108) mmol/L Carbon Dioxide 26 (22-29) mmol/L Anion Gap 11 L (12-20) BUN 12 (9-16) mg/dL Creatinine 1.33 (0.5-1.4) mg/dL Estim Creat Clear Calc 88.6 Estimated GFR 60 Random Glucose 120 H (60-115) mg/dL Calcium 9.5 (8.4-10.2) mg/dL Total Bilirubin 0.3 (0.0-1.0) mg/dL AST 23 D (5-37) U/L ALT 46 H (0-40) U/L Alkaline Phosphatase 143 H (39-117) U/L Total Protein 7.5 (6.5-8.0) g/dL Albumin 4.3 (3.5-5.0) g/dL Urine Color YELLOW Urine Appearance CLEAR Urine pH 5.5 (5.0-8.0) Ur Specific [place] >= 1.030 H (1.005-1.025) Urine Protein TRACE (NEG-TRACE) MG/DL Urine Glucose (UA) NEG (NEG) MG/DL Urine Ketones NEG (NEG) MG/DL Urine Blood 2+ H (NEG) Urine Nitrite NEG (NEG) Ur Leukocyte Esterase NEG (NEG) Urine RBC 5-9 H (0) /HPF Urine WBC 1-4 (0-4) /HPF Ur Squamous Epith Cells 1+ /LPF Urine Bacteria NONE /LPF Urine Mucus 1+ /LPF Imaging Data CT scan - abdomen: Radiologist's impression: IMPRESSION: *? Stable severe chronic right hydronephrosis with markedly attenuated right renal cortex. There are couple 2-3 mm calculi within the proximal right ureter at the ureteropelvic junction which are unchanged from the previous exam. A previous nuclear medicine study on 12/22/2018 showed essentially no right renal function. *? Hepatic steatosis. Discharge Plan Discharge Clinical Impression: Back pain Qualifiers: Back pain location: low back pain Chronicity: acute Back pain laterality: right Sciatica presence: without sciatica Qualified Code(s): M54.50 - Low back pain, unspecified Patient Disposition: Home, Self-Care Instructions: Back Pain (ED) Prescriptions: New acetaminophen [Tylenol Extra Strength] 500 mg tablet 1,000 mg PO Q6H PRN (Reason: pain) Qty: 30 RF: 0 cyclobenzaprine 10 mg tablet 10 mg PO TID Qty: 10 RF: 0 No Action amlodipine 5 mg Tablet 5 mg PO DAILY Qty: 10 RF: 0 cefuroxime axetil 500 mg tablet 500 mg PO BID 7 Days Qty: 16 RF: 0 amlodipine 5 mg tablet 5 mg PO DAILY Qty: 30 RF: 3 Referrals: Physician,None [Primary Care Provider] - 1 week
[2021-06-01] MEDS: 0.9 % Sodium Chloride 1,000 ML 999 ML IVCONT ×2 (05:18→06:28)
--- NOTE | 2021-06-01 05:18 | PC.NURSE ---
PT returned from CT scan.
[2021-06-01] MEDS: Ketorolac Tromethamine 30 MG/ML VIAL IVPUSH (05:19)
[2021-06-01] MEDS: Cyclobenzaprine HCl 10 MG TABLET PO (05:19)
[2021-06-01 05:30] LABS: Appearance Urine CLEAR; Color Urine YELLOW; Glucose Urine UA NEG (NEG); Leukocyte Esterase Urine NEG (NEG); Nitrite Urine NEG (NEG); PH 5.5 (5.0-8.0); Specific Gravity - Urine >= 1.030 (1.005-1.025); UACC Culture Trigger NO; Urine Blood 2+ (NEG); Urine Ketones NEG (NEG); Urine Protein TRACE MG/DL (NEG-TRACE)
[2021-06-01 05:36] LABS: Mucus Urine 1+ /LPF; Squamous Epithelial Cell Urine 1+ /LPF
[2021-06-01 06:23] VITALS: BP 150/84; PULSE 79; RESP 18; O2SAT 98
[2021-06-01 07:24] VITALS: BP 163/99; PULSE 84; RESP 14; TEMP 36.8; O2SAT 98
== END 2021-06-01 07:35 | disposition home or self-care (01) ==
PROVIDERS: Emergency Provider Emergency Medicine
DX: M54.50 Low back pain, unspecified (principal); I10 Essential (primary) hypertension; Z87.440 Personal history of urinary (tract) infections
CPT/HCPCS: 36415; 74176; 80053; 81001; 85025; 96361; 96374; 99284; J1885

== ENCOUNTER 2023-03-23 15:59 | Emergency (ER) | payer BC, SELFPAY ==
--- NOTE | 2023-03-23 | ECG_ITS ---
Test Reason : HYPERTENSION Blood Pressure : / mmHG Vent. Rate : 065 BPM Atrial Rate : 065 BPM P-R Int : 138 ms QRS Dur : 090 ms QT Int : 422 ms P-R-T Axes : 000 131 063 degrees QTc Int : 438 ms Normal sinus rhythm Left posterior fascicular block Nonspecific T wave abnormality Abnormal ECG When compared with ECG of 26-APR-2021 12:58, Vent. rate has decreased BY 45 BPM Nonspecific T wave abnormality now evident in Anterior leads Referred By: Eladia Sylvester Electronically Signed By:JULIO BATRES MD
--- NOTE | ~2023-03-23 | XR_ITS ---
EXAMINATION: XR LUMBOSACRAL SPINE CLINICAL INFORMATION: Pain COMPARISON: None available. TECHNIQUE: Three views of the lumbosacral spine. FINDINGS: There may be transitional anatomy or 6 lumbar-type vertebral bodies. For the purposes of this dictation, levels are designated the first non-rib bearing vertebral body L1 and transitional segment inferiorly. Bone alignment is normal. No fracture or dislocation. Mild degenerative spondylosis lower thoracic spine, L1-L2 and L2-L3. No disc space narrowing. Air-filled slightly distended loop of bowel in the right abdomen. Paraspinal soft tissues are otherwise normal. 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 Mild degenerative spondylosis of the lower thoracic and upper lumbar spine. Air-filled slightly distended loop of bowel in the right mid abdomen.
[2023-03-23 16:07] VITALS: BP 202/129; PULSE 86; RESP 18; TEMP 36.2; O2SAT 98; BMI 40.6
--- NOTE | 2023-03-23 16:07 | ED_ITS ---
HPI - Back Pain/Injury General Chief Complaint: Back Pain/Injury Stated Complaint: Low back/RT leg pain Time Seen by Provider: 03/23/23 16:56 History of Present Illness HPI Narrative: Patient complains of right-sided low back pain radiating to his right thigh and groin area that started when he was at work lifting a heavy box a few days ago Pain was in the lower back and mild for 2 days but then today when he was at work and the pain became more severe and started radiating into the groin area He has no incontinence no urinary symptoms no burning with urination denies any hernia swelling no testicular swelling no numbness or weakness no fever Related Data Previous Rx's Medication Instructions Recorded amlodipine 5 mg tablet 5 mg PO DAILY #10 tabs 09/20/20 cefuroxime axetil 500 mg tablet 500 mg PO BID 7 days #16 tabs 09/20/20 amlodipine 5 mg tablet 5 mg PO DAILY #30 tabs 04/26/21 acetaminophen 500 mg tablet 1,000 mg (2 x 500 mg) PO Q6H PRN 06/01/21 (Tylenol Extra Strength) pain #30 tabs cyclobenzaprine 10 mg tablet 10 mg PO TID #10 tabs 06/01/21 acetaminophen 500 mg tablet 1,000 mg (2 x 500 mg) PO QID PRN 03/23/23 pain #30 tabs amlodipine 10 mg tablet (Norvasc) 10 mg PO DAILY #30 tabs 03/23/23 cyclobenzaprine 5 mg tablet 5 mg PO TID PRN muscle spasm #10 03/23/23 tabs ibuprofen 600 mg tablet 600 mg PO Q6H PRN pain #20 tabs 03/23/23 oxycodone 5 mg tablet 5 mg PO Q6H PRN pain #10 tabs 03/23/23 prednisone 20 mg tablet 60 mg (3 x 20 mg) PO DAILY 3 days 03/23/23 #9 tabs Allergies Allergy/AdvReac Type Severity Reaction Status Date / Time No Known Allergies Allergy Verified 03/23/23 16:06 [No Known Allergies*] [facility] Past Medical History Source: nursing notes reviewed Medical History Abnormal cystoscopy Chronic kidney disease History of renal stone Social History Social History Household Members: None Housing: House Do you presently have visiting nurse or other home services: No Second Hand Smoke Exposure: No Advance Directives: No Advance Directives Information Provided: No service: No Current occupational status: employed Physical Exam 2 Vital Signs: Vital Signs: Last Vital Signs Temp 97.1 F 03/23/23 16:07 Pulse 83 03/23/23 22:03 Resp 18 03/23/23 19:22 BP 169/104 H 03/23/23 22:03 Pulse Ox 99 03/23/23 22:03 O2 Del Method Room Air 03/23/23 22:03 BMI result Body Mass Index 40.6 General appearance is no distress Head is normocephalic atraumatic Neck is supple Chest wall nontender Abdomen is soft nontender Pelvic area there is no inguinal hernia there is no hernia swelling no testicular swelling The back there is right upper gluteal lower lumbar tenderness, no midline tenderness, range of motion is limited because of pain in the area, skin of the back is normal no redness no wounds no rash Extremities full range of motion x4 Neuro motor is 5/5 x4 in all extremities, gait and balance are normal, sensation is intact and symmetrical in all extremities Course Course Course Narrative: RME: 43yo M w/PMHx HTN, c/o right sided low back pain radiating to right thigh x4 days. Pain worse w/movement. +RLE tingling. denies injury/fall, numbness, incontinence/retention, fever Used Icy Hot & Motrin for pain w/o relief HTNsive in triage 197/134 > denies PUGA or chest pain >> likely 2/2 pain XRs ordered Full HPI, ROS and PE to be performed by primary ED provider. Lumbar spine x-ray did not show any acute pathology no acute bony injury there is some mild degenerative change, no disc space narrowing It also did show an air-filled slightly distended loop of bowel in the right mid abdomen, this was reviewed with attending physician Nga who agreed as patient has no nausea no vomiting no abdominal pain is eating and drinking normally , moving bowels normally and has no abdominal complaints whatsoever that there is very unlikely any small-bowel obstruction Patient is treated with analgesics and discharged to follow with [facility] for work related back injury Blood pressure of 206/145 is noted and is repeated and remains the same, patient states he stopped taking Norvasc soon after was prescribed in takes no medication for his known high blood pressure Discussed with attending physician Nga who advised 10 of Norvasc, observe for an hour and re-evaluate At 19:00 case is signed out to physician assistant Rubio to follow blood pressure re-evaluate and discharge the patient Dangers of uncontrolled hypertension and discussed with patient who says he will make an did attempt to use his insurance and call the number on the back of his card and find a primary doctor Reevaluation(s) Reevaluation #1: Blood pressure improved after receiving Norvasc Klonopin. Second troponin did not increased by 50%. Patient has pmh of Elevated troponin. No heart attack. Negative for any neuro deficits. not suspecting stroke. Patient is in CRISTOBAL patient states known history of chronic kidney disease. Repeat chemistry and admission was discussed for high blood pressure and CRISTOBAL but patient refused and preferred to go home with follow-up with his primary care provider. Patient states he will be compliant with Norvasc prescription that was sent. patient explained worrisome signs and informed to return to the ED if he has them. Time: 23:35 Medications Administered Discontinued Medications Generic Name Dose Route Start Last Admin Trade Name Freq PRN Reason Stop Dose Admin Acetaminophen 975 mg 03/23/23 17:50 03/23/23 17:56 Acetaminophen 325 Mg Tablet PO 03/23/23 17:51 975 mg ONCE ONE Administration Amlodipine Besylate 10 mg 03/23/23 18:12 03/23/23 18:21 Amlodipine Besylate 10 Mg Tablet PO 03/23/23 18:13 10 mg ONCE ONE Administration Protocol Clonidine HCl 0.2 mg 03/23/23 19:30 03/23/23 20:00 Clonidine Hcl 0.2 Mg Tablet PO 03/23/23 19:31 0.2 mg ONCE ONE Administration Protocol Sodium Chloride 1,000 mls @ 999 mls/hr 03/23/23 21:05 03/23/23 21:09 Ns IV 03/23/23 22:05 999 mls/hr .Q1H1M STA Administration Ibuprofen 600 mg 03/23/23 17:50 03/23/23 17:56 Ibuprofen 600 Mg Tablet PO 03/23/23 17:51 600 mg ONCE ONE Administration Prednisone 60 mg 03/23/23 17:50 03/23/23 17:56 Prednisone 20 Mg Tablet PO 03/23/23 17:51 60 mg ONCE ONE Administration Medical Decision Making Lab Data 03/23/23 19:48 03/23/23 22:36 Labs: Lab Results 03/23/23 03/23/23 03/23/23 Range/Units 19:48 21:58 22:36 WBC 12.7 H (4.8-10.8) X10*3/uL RBC 5.67 (4.60-5.80) X10*6/uL Hgb 14.6 (14.0-18.0) g/dl Hct 45.1 (42.0-52.0) % MCV 79.5 L (80.0-98.0) fL MCH 25.7 L (27.0-33.0) pg MCHC 32.4 (31.0-36.0) g/dl RDW 12.8 (11.0-16.0) % Plt Count 186 (160-400) X10*3/uL MPV 10.4 (9.4-12.4) fL Immature Gran % (Auto) 0.3 (0.0-0.4) % Neut % (Auto) 76.7 H (45-73) % Lymph % (Auto) 19.0 L (20-40) % [place] % (Auto) 3.0 (2-11) % Eos % (Auto) 0.5 (0-4) % Baso % (Auto) 0.5 (0-2) % Lymph # (Auto) 2.4 (1.2-4.9) X10*3/uL [place] # (Auto) 0.4 (0.1-1.2) X10*3/uL Eos # (Auto) 0.1 (0.0-0.4) X10*3/uL Baso # (Auto) 0.1 (0.0-0.2) X10*3/uL Abs Immat Gran (auto) 0.04 H (0.00-0.03) X10*3/uL Absolute Neuts (auto) 9.8 H (2.0-8.3) x10*3/uL Absolute Nucleated RBC 0.000 (0.0-0.012) X10*3/uL Nucleated RBC % (auto) 0.0 (0.0-0.2) /100WBC PT 11.7 (11.1-13.3) SEC INR 1.0 (0.9-1.1) APTT 29.7 (26.0-36.4) SEC Sodium 141 138 (135-145) mmol/L Potassium 3.7 4.0 (3.3-5.1) mmol/L Chloride 106 108 (96-108) mmol/L Carbon Dioxide 23 22 (22-29) mmol/L Anion Gap 16 12 (12-20) BUN 12 12 (9-16) mg/dL Creatinine 1.50 H 1.43 H (0.5-1.4) mg/dL Estim Creat Clear Calc 76.9 80.7 Estimated GFR 52 54 Random Glucose 114 152 H (60-115) mg/dL Calcium 9.2 9.0 (8.4-10.2) mg/dL Total Bilirubin 0.6 0.6 (0.0-1.0) mg/dL AST 26 23 (5-37) U/L ALT 42 H 40 (0-40) U/L Alkaline Phosphatase 110 102 (39-117) U/L Troponin I High Sens 43.6 H 41.5 H (<3.5-35.0) ng/L Total Protein 7.7 7.2 (6.5-8.0) g/dL Albumin 4.3 4.1 (3.5-5.0) g/dL Discharge Plan Discharge Clinical Impression: Lumbar radiculopathy, Back strain, Hypertension, CRISTOBAL (acute kidney injury) Patient Disposition: Home, Self-Care Instructions: Acute Kidney Injury (DC), Lumbar Radiculopathy (ED), Hypertension (ED) Additional Instructions: X-ray did not show any acute bony injury to her back, however soft tissue injuries will not show up on the x-ray Follow with work connection for work related back injury Return any time any worse condition or concerns I am also filling a 30 day supply of blood pressure medicine [facility] Best plan is get a home blood pressure cuff and keep a log of daily readings so when you go to visit with primary doctor he has information about how well the [facility] is working MORE IMPORTANT YOUR BLOOD PRESSURE IS HIGH AND TO CONTROL IT YOU WILL NEED TO GET A PRIMARY CARE DOCTOR USUALLY IT TAKES ADJUSTMENT OF MEDICATIONS AND SEVERAL VISITS TO FIND THE BEST TREATMENT TO BRING BLOOD PRESSURE BACK TO [facility] YOU CAN CALL THE BACK OF YOUR INSURANCE CARD TO FIND OUT WHICH DOCTOR'S TAKE YOUR INSURANCE YOU CAN GET A LIST OF THESE DOCTORS HIGH BLOOD PRESSURE USUALLY CAUSES MANY MANY ILLNESSES AND PROBLEMS AND DOES NOT KILL YOU QUICKLY, BUT CAUSES MANY MAJOR DISABILITIES Prescriptions: New acetaminophen 500 mg tablet 1,000 mg PO QID PRN (Reason: pain) Qty: 30 0RF ibuprofen 600 mg tablet 600 mg PO Q6H PRN (Reason: pain) Qty: 20 0RF prednisone 20 mg tablet 60 mg PO DAILY 3 Days Qty: 9 0RF oxycodone 5 mg tablet 5 mg PO Q6H PRN (Reason: pain) Qty: 10 0RF Rx Instructions: Partial Fill upon patient request. cyclobenzaprine 5 mg tablet 5 mg PO TID PRN (Reason: muscle spasm) Qty: 10 0RF amlodipine [Norvasc] 10 mg tablet 10 mg PO DAILY Qty: 30 0RF No Action amlodipine 5 mg Tablet 5 mg PO DAILY Qty: 10 0RF Protocol: Hold for SBP< HOLD for SBP < : 90 cefuroxime axetil 500 mg tablet 500 mg PO BID 7 Days Qty: 16 0RF acetaminophen [Tylenol Extra Strength] 500 mg tablet 1,000 mg PO Q6H PRN (Reason: pain) Qty: 30 0RF cyclobenzaprine 10 mg tablet 10 mg PO TID Qty: 10 0RF amlodipine 5 mg tablet 5 mg PO DAILY Qty: 30 3RF Referrals: [facility] [Provider Group] (Back injury at work) Stand Alone Forms: Work/School Release Print Language: Bahamian
[2023-03-23] MEDS: Acetaminophen 325 MG TABLET 975 MG PO (17:56)
[2023-03-23] MEDS: predniSONE 20 MG TABLET 60 MG PO (17:56)
[2023-03-23] MEDS: Ibuprofen 600 MG TABLET PO (17:56)
[2023-03-23 18:09] VITALS: BP 206/145; PULSE 83
[2023-03-23] MEDS: amLODIPine Besylate 10 MG TABLET PO (18:21)
--- NOTE | 2023-03-23 18:23 | PC.NURSE ---
pt medicated per JUL for - EKG orderd, amlodipine 10mg given
[2023-03-23 19:22] VITALS: BP 210/119; PULSE 64; RESP 18; O2SAT 98
[2023-03-23 19:52] LABS: MANUAL DIFF FLAG NO
[2023-03-23 19:53] LABS: Basophils Absolute Auto 0.1 X10*3/uL (0.0-0.2); Basophils Percent Auto 0.5 % (0-2); Eosinophils Absolute Auto 0.1 X10*3/uL (0.0-0.4); Eosinophils Percent Auto 0.5 % (0-4); Hematocrit 45.1 % (42.0-52.0); Hemoglobin 14.6 g/dl (14.0-18.0); Imm Gran Abs Auto 0.04 X10*3/uL (0.00-0.03); Imm Gran Pct Auto 0.3 % (0.0-0.4); Lymphocytes Absolute Auto 2.4 X10*3/uL (1.2-4.9); Mean Corpuscular HGB Conc 32.4 g/dl (31.0-36.0); Mean Corpuscular Hemoglobin 25.7 pg (27.0-33.0); Mean Corpuscular Volume 79.5 fL (80.0-98.0); Mean Platelet Volume 10.4 fL (9.4-12.4); Monocytes Absolute Auto 0.4 X10*3/uL (0.1-1.2); Neutrophils Absolute Auto 9.8 x10*3/uL (2.0-8.3); Neutrophils Percent Auto 76.7 % (45-73); Platelet Count 186 X10*3/uL (160-400); Red Blood Count 5.67 X10*6/uL (4.60-5.80); Red Cell Distribution Width 12.8 % (11.0-16.0); White Blood Count 12.7 X10*3/uL (4.8-10.8)
[2023-03-23 19:58] LABS: Prothrombin Time 11.7 SEC (11.1-13.3)
[2023-03-23] MEDS: cloNIDine HCL 0.2 MG TABLET PO (20:00)
[2023-03-23 20:01] LABS: Partial Thromboplastin Time 29.7 SEC (26.0-36.4)
[2023-03-23 20:10] LABS: Alanine Aminotransferase 42 U/L (0-40); Albumin Level 4.3 g/dL (3.5-5.0); Alkaline Phosphatase 110 U/L (39-117); Anion Gap 16 (12-20); Aspartate Amino Transferase 26 U/L (5-37); Bilirubin Total 0.6 mg/dL (0.0-1.0); Blood Urea Nitrogen 12 mg/dL (9-16); Calcium 9.2 mg/dL (8.4-10.2); Carbon Dioxide 23 mmol/L (22-29); Chloride 106 mmol/L (96-108); Creatinine Clr Calc Pharmacy 76.9; Estimated Glomerular Filt Rate 52; Glucose Random 114 mg/dL (60-115); Potassium 3.7 mmol/L (3.3-5.1); Sodium 141 mmol/L (135-145); Total Protein 7.7 g/dL (6.5-8.0)
[2023-03-23 20:17] LABS: Troponin-I High Sensitivity 43.6 ng/L (<3.5-35.0)
[2023-03-23 21:02] VITALS: BP 183/115; PULSE 84; O2SAT 98
[2023-03-23] MEDS: 0.9 % Sodium Chloride 1,000 ML 999 ML IV (21:09)
[2023-03-23 22:03] VITALS: BP 169/104; PULSE 83; O2SAT 99
[2023-03-23 22:27] LABS: Troponin-I High Sensitivity 41.5 ng/L (<3.5-35.0)
--- NOTE | 2023-03-23 22:44 | PC.NURSE ---
2nd troponin and CMP collected - sent to lab pt has approx 250ml remaining of IVF., pt resting quiety, calm cooperative and pleasant, 22g iv in right hand
[2023-03-23 22:56] LABS: Alanine Aminotransferase 40 U/L (0-40); Albumin Level 4.1 g/dL (3.5-5.0); Alkaline Phosphatase 102 U/L (39-117); Anion Gap 12 (12-20); Aspartate Amino Transferase 23 U/L (5-37); Bilirubin Total 0.6 mg/dL (0.0-1.0); Blood Urea Nitrogen 12 mg/dL (9-16); Carbon Dioxide 22 mmol/L (22-29); Chloride 108 mmol/L (96-108); Creatinine Clr Calc Pharmacy 80.7; Estimated Glomerular Filt Rate 54; Glucose Random 152 mg/dL (60-115); Sodium 138 mmol/L (135-145); Total Protein 7.2 g/dL (6.5-8.0)
--- NOTE | 2023-03-23 22:59 | PC.NURSE ---
report given to special agent in chargeNubia ROBBINS
== END 2023-03-24 00:47 | disposition home or self-care (01) ==
PROVIDERS: Physician Assistant; Emergency Provider Emergency Medicine
DX: M54.16 Radiculopathy, lumbar region (principal); N17.9 Acute kidney failure, unspecified; I10 Essential (primary) hypertension; S39.012A Strain of muscle, fascia and tendon of lower back, initial encounter; X58.XXXA Exposure to other specified factors, initial encounter; Y93.9 Activity, unspecified; Y92.9 Unspecified place or not applicable; Y99.9 Unspecified external cause status
CPT/HCPCS: 36415; 72100; 80053; 84484; 85025; 85610; 85730; 93005; 99284

== ENCOUNTER 2023-08-14 13:13 | Outpatient (AMB) | payer BC, SELFPAY ==
[2023-08-14 13:15] VITALS: BP 150/110; PULSE 80; O2SAT 98; BMI 39.7
--- NOTE | 2023-08-14 13:15 | A.OFFPC_ITS ---
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 Required: No Allergies No Known Allergies [No Known Allergies*] Allergy (Verified 08/14/23 13:15) Medication List - Last Reconciled 08/14/23 by Kelechi Neves MD acetaminophen (Tylenol Extra Strength) 1,000 mg (2 x 500 mg) PO Q6H PRN amlodipine (Norvasc) 10 mg PO DAILY Tobacco use date assessed: 08/14/23 Dental Screening Dental Screen Date: 08/14/23 Did you have a dental visit in the last 12 months?: No Did you have a dental problem in the last 6 months where you did not have access to dental care?: No HPI 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 Noted CT scan done in 2021 showing severe hydronephrosis with renal calculi patient does have chronic kidney disease noted also elevated liver function test. [facility] Medical History (Updated 08/14/23 @ 13:32 by Kelechi Neves MD) Situs inversus Abnormal cystoscopy Chronic kidney disease History of renal stone Social History (Updated 08/14/23 @ 13:40 by Kelechi Neves MD) Household Members: None Housing: House Do you presently have visiting nurse or other home services: No Alcohol intake: never Patient Tobacco Use Status: Never used Tobacco Second Hand Smoke Exposure: No service: No Current occupational status: employed Cognitive needs: No Hearing needs: No Vision needs: No Questionnaire PHQ-9 Over the last 2 weeks, how often have you been bothered by any of the following problems? 1. Little interest or pleasure in doing things: not at all 2. Feeling down, depressed, or hopeless: not at all 3. Trouble falling or staying asleep, or sleeping too much: not at all 4. Feeling tired or having little energy: not at all 5. Poor appetite or overeating: not at all 6. Feeling bad about yourself - or that you are a failure or have let yourself or your family down: not at all 7. Trouble concentrating on things, such as reading the newspaper or watching television: not at all 8. Moving or speaking so slowly that other people could have noticed. Or the opposite - being so fidgety or restless that you have been moving around a lot more than usual: not at all 9. Thoughts that you would be better off or of hurting yourself in some way: not at all Total score: 0 Depression Screening Interpretation: Negative Depression Screening Done: Yes 17743 - PHQ-9 Billing: Yes Source: Developed by Drs. Grant Taylor, Belinda Drummond, Scotty Duckworth and colleagues, with an educational hudson from [employer]. Thrive Questionnaire Date Thrive assessed: 08/14/23 I am a: Patient What is your living situation today?: I have a steady place to live Within the past 12 months, did the food you bought not last and you didn't have the money to get more?: Never true Within the past 12 months, did you worry whether your food would run out before you got money to buy more?: Never true Do you have trouble paying for medicines?: No Do you have trouble getting transportation to medical appointments?: No Do you have trouble paying your heating and electricity bill?: No Do you have trouble taking care of your child, family member or friend?: No Do you have trouble with day-to-day activities such as bathing, preparing meals, shopping, managing finances, etc.?: No Are you currently unemployed and looking for a job?: No Are you interested in more education?: No Please select the resources that you would like help with: None Currently or been in a relationship where the following occur: no concerns reported THRIVE Score: 0 AUDIT C Alcohol Use Questionnaire (AUDIT-C) 1. How often do you have a drink containing alcohol?: Never 2. How many drinks containing alcohol do you have on a typical day when you are drinking?: 1 or 2 (0) 3. How often do you have six or more drinks on one occasion?: Never Total Score: 0 LYSSA-7 AMB Questionnaire LYSSA-7 Date LYSSA - 7 assessed: 08/14/23 Feeling nervous, anxious, or on edge: 0 = Not at all Not being able to stop or control worryin = Not at all Worrying too much about different things: 0 = Not at all Trouble relaxin = Not at all Being so restless that it is hard to sit still: 0 = Not at all Becoming easily annoyed or irritable: 0 = Not at all Feeling afraid as if something awful might happen: 0 = Not at all Total LYSSA-7 score (0-4 normal; 5-9 mild; 10-14 moderate; 15-21 severe): 0 Source: Developed by Drs. Grant Taylor, Belinda Drummond, Scotty Duckworth and colleagues, with an educational hudson from [employer]. Physical exam (Primary Care) Vital Signs: Last Vital Signs Pulse 80 08/14/23 13:15 BP 150/110 H 08/14/23 13:15 Pulse Ox 98 08/14/23 13:15 Oxygen Delivery Method Room Air 08/14/23 13:15 BMI result Body Mass Index 39.7 Tobacco/Smoking Status: Tobacco use Status Tobacco use date assessed 08/14/23 08/14/23 13:16 Patient Tobacco Use Status Never used Tobacco 08/14/23 13:23 PHQ-9: PHQ-9 Score PHQ-9: Total score 0 08/14/23 13:24 Depression Screening Interpretation: Negative Thrive Assessment: Date of Thrive Assessment Date Thrive assessed 08/14/23 08/14/23 13:16 Currently or been in a relationship where the following occur: no concerns r eported Const General: alert; No acute distress Eyes Conjunctivae: conjunctivae normal Resp Auscultation: clear to auscultation bilaterally Cardio Rate: regular rate Rhythm: regular rhythm GI Inspection: Yes normal to inspection Extrem General: Yes normal to inspection and No edema Assessment and Plan Assessment & Plan (1) Hypertension: Code(s): I10 - Essential (primary) hypertension Qualifiers: Hypertension type: primary hypertension Qualified Code(s): I10 - Essential (primary) hypertension Plan: Patient presently on amlodipine 10 mg once a day (2) Chronic kidney disease: Code(s): N18.9 - Chronic kidney disease, unspecified Plan: Patient is advised to follow-up with Nephrology (3) Elevated liver function tests: Code(s): R79.89 - Other specified abnormal findings of blood chemistry (4) Obesity (BMI 30-39.9): Code(s): E66.9 - Obesity, unspecified Plan: Diet and exercise (5) Renal calculi: Code(s): N20.0 - Calculus of kidney Plan: Increase oral fluids (6) Hepatic steatosis: Code(s): K76.0 - Fatty (change of) liver, not elsewhere classified Plan: Low-fat diet and exercise Orders: Orders Complete Blood Count Auto Diff Today I10 - Essential (primary) hypertension Comprehensive Met. Panel Today I10 - Essential (primary) hypertension Lipid Panel Today E78.00 - Pure hypercholesterolemia, unspecified, I10 - Essential (primary) hypertension Ferritin Today I10 - Essential (primary) hypertension IRON PROFILE Today I10 - Essential (primary) hypertension Free T4 (Free Thyroxine) Today I10 - Essential (primary) hypertension Thyroid Stimulating Hormone Today I10 - Essential (primary) hypertension Vitamin B12 and Folate Today I10 - Essential (primary) hypertension Hemoglobin A1c Today I10 - Essential (primary) hypertension Reticulocyte Count Today I10 - Essential (primary) hypertension UA CC w/rflx Micro + Cult Today I10 - Essential (primary) hypertension, R30.0 - Dysuria US renal BI Today N18.9 - Chronic kidney disease, unspecified Referrals Nephrology Referral N18.9 - Chronic kidney disease, unspecified Medications: Refilled amlodipine (Norvasc) 10 mg PO DAILY 90 tabs 1RF N18.9 - Chronic kidney disease, unspecified amlodipine (Norvasc) 10 mg PO DAILY 90 tabs 1RF N18.9 - Chronic kidney disease, unspecified Coding Level of Care Code New Pt Level 4 (56942) Diagnoses Hypertension I10 Hypertension type: primary hypertension Chronic kidney disease N18.9 Elevated liver function tests R79.89 Obesity (BMI 30-39.9) E66.9 Renal calculi N20.0 Hepatic steatosis K76.0
== END 2023-08-14 13:59 | disposition home or self-care (01) ==
PROVIDERS: PCP Internal Medicine; Visit Provider Internal Medicine
DX: I12.9 Hypertensive chronic kidney disease with stage 1 through stage 4 chronic kidney disease, or unspecified chronic kidney disease (principal); Z68.39 Body mass index [BMI] 39.0-39.9, adult; E66.9 Obesity, unspecified; N18.9 Chronic kidney disease, unspecified; R79.89 Other specified abnormal findings of blood chemistry; N20.0 Calculus of kidney; K76.0 Fatty (change of) liver, not elsewhere classified
CPT/HCPCS: 99204

== ENCOUNTER 2023-08-14 14:26 | Outpatient (REF) | payer BC, SELFPAY ==
[2023-08-14 14:40] LABS: MANUAL DIFF FLAG NO
[2023-08-14 15:13] LABS: Basophils Absolute Auto 0.1 X10*3/uL (0.0-0.2); Basophils Percent Auto 0.6 % (0-2); Eosinophils Absolute Auto 0.1 X10*3/uL (0.0-0.4); Eosinophils Percent Auto 0.7 % (0-4); Hematocrit 48.2 % (42.0-52.0); Hemoglobin 15.9 g/dl (14.0-18.0); Imm Gran Abs Auto 0.04 X10*3/uL (0.00-0.03); Imm Gran Pct Auto 0.3 % (0.0-0.4); Immature Retic Fraction 5.1 % (2.3-13.4); Lymphocytes Absolute Auto 3.3 X10*3/uL (1.2-4.9); Lymphocytes Percent Auto 26.6 % (20-40); Mean Corpuscular Volume 78.9 fL (80.0-98.0); Mean Platelet Volume 10.4 fL (9.4-12.4); Monocytes Absolute Auto 0.7 X10*3/uL (0.1-1.2); Monocytes Percent Auto 5.3 % (2-11); Neutrophils Absolute Auto 8.2 x10*3/uL (2.0-8.3); Neutrophils Percent Auto 66.5 % (45-73); Platelet Count 204 X10*3/uL (160-400); Red Blood Count 6.11 X10*6/uL (4.60-5.80); Red Cell Distribution Width 12.8 % (11.0-16.0); Retic HGB Equivalent 30.7 pg (30.0-35.0); Reticulocyte Percent 1.1 % (0.5-1.8); White Blood Count 12.3 X10*3/uL (4.8-10.8)
[2023-08-14 15:29] LABS: Estimated Average Glucose 131 mg/dL; Hemoglobin A1c % 6.2 % (<6.0)
[2023-08-14 15:52] LABS: Alanine Aminotransferase 42 U/L (0-40); Albumin Level 4.5 g/dL (3.5-5.0); Alkaline Phosphatase 133 U/L (39-117); Anion Gap 13 (12-20); Aspartate Amino Transferase 24 U/L (5-37); Bilirubin Total 0.8 mg/dL (0.0-1.0); Blood Urea Nitrogen 13 mg/dL (9-16); Calcium 9.2 mg/dL (8.4-10.2); Carbon Dioxide 28 mmol/L (22-29); Chloride 105 mmol/L (96-108); Cholesterol 203 mg/dL (<200); Estimated Glomerular Filt Rate 49; Glucose Random 96 mg/dL (60-115); HDL Cholesterol 47 mg/dL (>40); Iron 126 mcg/dL (45-160); LDL Cholesterol Calculated 141 mg/dL (<100); Percent Iron Saturation 44 % (15-50); Potassium 3.6 mmol/L (3.3-5.1); Sodium 142 mmol/L (135-145); Total Iron Binding Capacity 287 mcg/dL (228-428); Total Protein 7.8 g/dL (6.5-8.0); Triglycerides 79 mg/dL (<150); Unsaturated Iron Binding 161 ug/dL
[2023-08-14 16:11] LABS: Ferritin 102 ng/mL (20-250); Free T4 (Free Thyroxine) 0.95 ng/dL (0.71-1.85); Thyroid Stimulating Hormone 2.01 uIU/mL (0.32-4.0)
[2023-08-14 16:21] LABS: Folate 11.6 ng/mL (> or = 4.0); Vitamin B12 269 pg/mL (200-900)
[2023-08-14 19:33] LABS: Appearance Urine Cloudy; Color Urine Yellow; Glucose Urine UA Negative (Negative); Leukocyte Esterase Urine Small (1+) (Negative); Nitrite Urine Negative (Negative); PH 8.5 (5.0-9.0); UMIC TRIGGER UACC YES; Urine Blood Small (1+) (Negative); Urine Ketones Negative (Negative); Urine Protein 100 (2+) mg/dL (Neg-Trace)
[2023-08-14 19:45] LABS: Bacteria Urine None Seen (None Seen); RBC Urine >20 /HPF (0-2); Squamous Epithelial Cell Urine 0-2 /HPF (0-2); UACC Culture Trigger YES
== END 2023-08-14 14:27 | disposition home or self-care (01) ==
LOC: HO.LAB 14:26
PROVIDERS: PCP Internal Medicine; Visit Provider Internal Medicine
DX: I10 Essential (primary) hypertension (principal); E78.00 Pure hypercholesterolemia, unspecified; R30.0 Dysuria
CPT/HCPCS: 36415; 80053; 80061; 81001; 82607; 82728; 82746; 83036; 83540; 84439; 84443; 85025; 85045; 87086

== ENCOUNTER 2023-08-21 13:19 | Outpatient (REF) | payer BC, SELFPAY ==
--- NOTE | ~2023-08-21 | US_ITS ---
EXAMINATION: US RETROPERITONEAL LIMITED (RENAL ONLY) CLINICAL INFORMATION: Chronic kidney disease, unspecified. Situs inversus. COMPARISON: CT abdomen and pelvis 06/01/2021. Renal ultrasound 06/30/2019 and 06/10/2018. X-ray KUB 07/03/2016 and 02/14/2016. TECHNIQUE: Real-time imaging of the kidneys. Limited visualization due to bowel gas. FINDINGS: RIGHT KIDNEY: 18.7 x 9.0 x 8.3 cm (SAG x AP x TRV). Severe hydronephrosis redemonstrated. No renal calculi. Diffuse renal cortical thinning. Limited visualization. LEFT KIDNEY: 12.2 x 6.6 x 6.3 cm (SAG x AP x TRV). No hydronephrosis. No renal calculi. Renal cortical thickness is normal. Limited visualization. ADDITIONAL FINDINGS: Provided history of situs inversus. US/US renal BI IMPRESSION: 1. Severe right hydronephrosis redemonstrated. No renal calculi. Diffuse renal cortical thinning. Limited visualization. 2. Provided history of situs inversus.
== END 2023-08-21 13:20 | disposition home or self-care (01) ==
LOC: HO.US 13:19
PROVIDERS: PCP Internal Medicine; Visit Provider Internal Medicine
DX: N18.9 Chronic kidney disease, unspecified (principal)
CPT/HCPCS: 76775

== ENCOUNTER 2023-08-25 09:43 | Outpatient (AMB) | payer BC, SELFPAY ==
[2023-08-25 09:47] VITALS: BP 138/100; PULSE 87; O2SAT 96; BMI 39.1
--- NOTE | 2023-08-25 09:47 | HO.NEPHOV_ITS ---
HPI HPI Comments History of Present Illness Details 43-year-old man with a history of multip le renal stones. Back in 2020 he had severe right-sided hydronephrosis. He underwent lithotripsy. Has had a follow-up ultrasonogram last week and results are pending. Kristian has a history of hypertension. Amlodipine 10 mg was added about a week ago. Serum creatinine has been fluctuating between 1.31.5 mg/dL and hence this referral. He has history of chronic headaches. He takes ibuprofen about once a week. No history of abuse of any NSAIDs. He works in a [employer]. He denies any smoking or alcohol abuse at present. [facility] Medical History (Updated 08/25/23 @ 10:07 by Alexander Loera MD) Situs inversus Abnormal cystoscopy Chronic kidney disease History of renal stone Family History (Updated 08/25/23 @ 09:52 by Anastasia Duncan MA) Mother Diabetes Hypertension Social History Household Members: None Housing: House Do you presently have visiting nurse or other home services: No Alcohol intake: never Patient Tobacco Use Status: Never used Tobacco Second Hand Smoke Exposure: No service: No Current occupational status: employed Cognitive needs: No Hearing needs: No Vision needs: No Vital Signs 08/25/23 09:47 08/25/23 10:02 Height 5 ft 6 in Weight 242 lb BMI 39.1 BP 138/100 H 120/70 Blood Pressure Location Lt brachial Lt brachial Position Sitting Sitting Pulse 87 Pulse Source Pulse Oximeter Pulse Oximetry (%) 96 Oxygen Delivery Method Room Air Physical Exam Vital Signs: Last Vital Signs Pulse 87 08/25/23 09:47 BP 138/100 H 08/25/23 09:47 Pulse Ox 96 08/25/23 09:47 Oxygen Delivery Method Room Air 08/25/23 09:47 BMI result Body Mass Index 39.1 Const General: comfortable Nutritional Appearance: well nourished Orientation/consciousness: patient oriented x3 HEENT Head: No normal to inspection Mouth: moist mucous membranes Neck Neck: Yes supple and Yes no JVD Resp Auscultation: clear to auscultation bilaterally, no rales and rub present Cardio Jugular venous distension: no JVD Palpation: no palpable S3 and no palpable S4 Heart sounds: no rubs GI Palpation (GI): Soft to palpation and nontender Percussion: No Fluid wave present General: Yes no CVA tenderness Back/Spine/Pelvis Back: no CVA tenderness Skin General skin exam: no rashes or lesions noted Neuro General: patient oriented x3 Extrem General: Yes no pedal edema and No clubbing Assessment & Plan Assessment & Plan (1) Chronic kidney disease: Comment: In the setting of hypertension obesity and multiple renal stones and right-sided hydronephrosis. Baseline creatinine is around 1.3-1.5 mg/dL. Code(s): N18.9 - Chronic kidney disease, unspecified Plan: Goal is to slow the progression of renal disease Maintain blood pressure less than 130/80 Continue to avoid nephrotoxic agents. Workup ordered for CKD. Ongoing obstruction should be ruled out and I will follow-up on the recent renal ultrasonogram. (2) Renal calculi: Code(s): N20.0 - Calculus of kidney Plan: 24 hour urine ordered for stone studies. Further workup will be based on the results of the studies Encouraged him to stay on a low-sodium diet Increase fluid intake to maintain a urine output of 2 L per 24 hours (3) Hypertension: Code(s): I10 - Essential (primary) hypertension Qualifiers: Hypertension type: primary hypertension Qualified Code(s): I10 - Essential (primary) hypertension Plan: Blood pressure acceptable Initial blood pressure was elevated but repeat was within normal range. Continue the amlodipine at the current dose Needs to stay on low-sodium diet Discussed weight loss and increasing physical activities. (4) Chronic headaches: Code(s): R51.9 - Headache, unspecified; G89.29 - Other chronic pain Plan: This may need further evaluation. Again encouraged him to avoid NSAIDs. He can use Tylenol as needed for now. Encouraged him to follow up with PCP Orders: Orders Uric Acid, 24Hr Urine Group Today I10 - Essential (primary) hypertension, N18.9 - Chronic kidney disease, unspecified, N20.0 - Calculus of kidney Sodium, 24Hr Urine Group Today I10 - Essential (primary) hypertension, N18.9 - Chronic kidney disease, unspecified, N20.0 - Calculus of kidney Calcium, 24 Hr Ur Today I10 - Essential (primary) hypertension, N18.9 - Chronic kidney disease, unspecified, N20.0 - Calculus of kidney Oxalate, 24 Hr Today I10 - Essential (primary) hypertension, N18.9 - Chronic kidney disease, unspecified, N20.0 - Calculus of kidney Creatinine, 24 Hr Group Today I10 - Essential (primary) hypertension, N18.9 - Chronic kidney disease, unspecified, N20.0 - Calculus of kidney Citric Acid 24hr Urine Today I10 - Essential (primary) hypertension, N18.9 - Chronic kidney disease, unspecified, N20.0 - Calculus of kidney Coding Level of Care Code New Pt Level 5 (04465) Diagnoses Chronic kidney disease N18.9 Renal calculi N20.0 Hypertension I10 Hypertension type: primary hypertension Chronic headaches R51.9; G89.29 Results Reviewed Nephrology Results: Hgb 15.9 g/dl (14.0-18.0) 08/14/23 WBC 12.3 X10*3/uL (4.8-10.8) H 08/14/23 Plt Count 204 X10*3/uL (160-400) 08/14/23 Sodium 142 mmol/L (135-145) 08/14/23 Potassium 3.6 mmol/L (3.3-5.1) 08/14/23 Chloride 105 mmol/L (96-108) 08/14/23 Carbon Dioxide 28 mmol/L (22-29) 08/14/23 BUN 13 mg/dL (9-16) 08/14/23 Creatinine 1.56 mg/dL (0.5-1.4) H 08/14/23 Calcium 9.2 mg/dL (8.4-10.2) 08/14/23 Urine Protein 100 (2+) mg/dL (Neg-Trace) H 08/14/23 Renal US 08/21/23
[2023-08-25 10:02] VITALS: BP 120/70
== END 2023-08-25 10:12 | disposition home or self-care (01) ==
PROVIDERS: PCP Internal Medicine; Visit Provider Internal Medicine Hypertension Specialist
DX: N20.0 Calculus of kidney (principal); I12.9 Hypertensive chronic kidney disease with stage 1 through stage 4 chronic kidney disease, or unspecified chronic kidney disease; N18.9 Chronic kidney disease, unspecified; R51.9 Headache, unspecified; G89.29 Other chronic pain
CPT/HCPCS: 99204

== ENCOUNTER → 2023-08-25 09:43 | Outpatient (BNVA) | payer BC, SELFPAY | PROVIDERS: PCP Internal Medicine; Visit Provider Internal Medicine Hypertension Specialist ==

== ENCOUNTER 2023-09-02 07:46 | Outpatient (REF) | payer BC, SELFPAY ==
[2023-09-02 08:25] LABS: Creatinine, mg/dL 103.42
[2023-09-02 08:28] LABS: Creatinine, mg/dL 105.64; Uric Acid, mg/dL 33.6 mg/dL
[2023-09-02 15:00] LABS: Creatinine, 24Hr Urine 2.5 G/Day (1.0-2.0); Creatinine, 24Hr Urine 2.6 G/Day (1.0-2.0); Total Volume 24 Hour Urine 2425 mL; Uric Acid, 24 Hr Urine 814.8 mg/Day (250-750)
[2023-09-04 15:58] LABS: Calcium, 24 Hr Urine 279 mg/24 h; Calcium/Creatinine Ratio 114 mg/g creat (30-210); Creatinine 24Hr Urine 2.45 g/24 h (0.50-2.15)
[2023-09-08 08:09] LABS: 24hr Urine Total Volume 2425 mL; Citric Acid, 24hr Urine 708 mg/24 h (100-1300); Citric Acid/Creat Ratio 24U 280 mg/g creat (60-660); Creatinine, 24U 2.45 g/24 h (0.50-2.15)
[2023-09-09 06:44] LABS: Oxalic Acid 24 Urine 27.2 mg/24 h (3.6-38.0)
== END 2023-09-02 07:47 | disposition home or self-care (01) ==
LOC: HO.LNP 07:46
PROVIDERS: Visit Provider Internal Medicine Hypertension Specialist
DX: N20.0 Calculus of kidney (principal); I12.9 Hypertensive chronic kidney disease with stage 1 through stage 4 chronic kidney disease, or unspecified chronic kidney disease; N18.9 Chronic kidney disease, unspecified
CPT/HCPCS: 82340; 82507; 83945; 84300; 84560

== ENCOUNTER 2023-09-04 12:56 | Outpatient (AMB) | payer BC, SELFPAY ==
--- NOTE | 2023-09-04 13:16 | MHC.OFFVIS ---
Intake Visit Reasons: severe right hydronephrosis Intake Note: New Patient presents for initial visit for Hydronephrosis (prev seen in the past) Urology Medications: none Blood Thinner: none Ems Helicopter Pilot Required: No Accompanied by: Self / Same As Patient Allergies No Known Allergies [No Known Allergies*] Allergy (Verified 09/04/23 13:18) Medication List - Last Reconciled 09/04/23 by Andrea Hilliard MD amlodipine (Norvasc) 10 mg PO DAILY HPI Comments Details: Jered is a pleasant male. He is a patient of Dr. Kevin. 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 Creatinine 08/09 1.6 - 58675.3 Plan for Lasix renogram to establish drainage [facility] Medical History (Updated 08/26/23 @ 17:52 by Kelechi Neves MD) Situs inversus Abnormal cystoscopy Chronic kidney disease History of renal stone Family History (Updated 08/25/23 @ 09:52 by Anastasia Duncan MA) Mother Diabetes Hypertension Social History Household Members: None Housing: House Do you presently have visiting nurse or other home services: No Alcohol intake: never Patient Tobacco Use Status: Never used Tobacco Second Hand Smoke Exposure: No service: No Current occupational status: employed Cognitive needs: No Hearing needs: No Vision needs: No Review of Systems Const Denies chills and Denies fever(s) Card Reports no additional complaints and Denies syncope Resp Denies cough GI Denies abdominal pain and Denies heartburn Reports as per HPI and Denies change in libido Neuro Denies syncope Psych Denies change in libido Endo Denies change in libido Physical Exam Const General: cooperative, healthy appearing, comfortable and no acute distress Orientation/consciousness: patient oriented x3 HEENT Face and sinus: Yes normal facial exam Mouth: moist mucous membranes Neck Neck: Yes normal visual inspection, Yes full ROM and Yes trachea midline Chest Chest palpation & inspection: normal inspection of the chest Resp Effort & Inspection: normal respiratory effort, able to speak in complete sentences and no respiratory distress GI Inspection: Yes normal to inspection Back/Spine/Pelvis Cervical Spine: normal cervical lordosis Thoracic/Lumbar Spine: thoracic and lumbar spine normal to inspection Skin General skin exam: no rashes or lesions noted Neuro General: patient oriented x3, gait normal, tone normal and moves all extremities Extrem General: Yes normal to inspection and Yes capillary refill normal Assessment & Plan Assessment & Plan (1) Hydronephrosis of right kidney: Comment: Severe August 2023 Code(s): N13.30 - Unspecified hydronephrosis Category: Medical Plan Lasix renogram Four week follow-up Orders: Orders NM renal flow w pharm int Today N13.30 - Unspecified hydronephrosis Patient Instructions: Imaging studies, laboratory and physical exam results were discussed and reviewed in detail. No major barriers to patient understanding were identified. An opportunity to ask questions regarding the treatment plan was provided. All questions were answered. The patient expressed understanding and agreement with the above treatment plan. The patient is aware they should contact our office by phone for worsening of their current condition or the appearance of new urologic symptoms. Compliance is encouraged with any medications and followup testing that is ordered. It is a privilege to participate in the urologic care of your patient. If you have any questions or concerns regarding treatment for the above conditions, or other urologic issues, please do not hesitate to contact me. The office telephone contact is [phone]. This note is constructed using voice recognition software. While every effort has been made to ensure accuracy employment and claims aide errors may have been included. Yours sincerely, Dr Andrea Hilliard MD, [facility] - Urology Providers of Expert, Compassionate Care for the Genitourinary System
== END 2023-09-04 13:29 | disposition home or self-care (01) ==
PROVIDERS: PCP Internal Medicine; Visit Provider Urology
DX: N13.30 Unspecified hydronephrosis (principal)
CPT/HCPCS: 99213

== ENCOUNTER → 2023-09-04 12:56 | Outpatient (BNVA) | payer BC, SELFPAY | PROVIDERS: PCP Internal Medicine; Visit Provider Urology ==

== ENCOUNTER 2023-09-15 14:55 | Outpatient (AMB) | payer BC, SELFPAY ==
[2023-09-15 14:56] VITALS: BP 130/106; PULSE 81; O2SAT 97; BMI 39.7
--- NOTE | 2023-09-15 14:56 | HO.NEPHOV_ITS ---
Vital Signs 09/15/23 14:56 09/15/23 15:16 Height 5 ft 6 in Weight 246 lb BMI 39.7 BP 130/106 H 120/84 Blood Pressure Location Lt brachial Position Sitting Pulse 81 Pulse Source Pulse Oximeter Pulse Oximetry (%) 97 Oxygen Delivery Method Room Air Intake Visit Reasons: 3 wks follow up Accompanied by: Self / Same As Patient Allergies No Known Allergies [No Known Allergies*] Allergy (Verified 09/15/23 14:58) HPI Comments Details: 43-year-old man with a history of multiple renal stones. Back in 2020 he had severe right-sided hydronephrosis. He underwent lithotripsy. Has had a follow-up ultrasonogram last week and results are pending. Kristian has a history of hypertension. Amlodipine 10 mg was added about a week ago. Serum creatinine has been fluctuating between 1.31.5 mg/dL and hence this referral. He has history of chronic headaches. He takes ibuprofen about once a week. No history of abuse of any NSAIDs. He works in a [employer]. He denies any smoking or alcohol abuse at present. [facility] Medical History (Updated 09/16/23 @ 11:06 by Alexander Loera MD) Situs inversus Abnormal cystoscopy Chronic kidney disease History of renal stone Family History Mother Diabetes Hypertension Social History Household Members: None Housing: House Do you presently have visiting nurse or other home services: No Alcohol intake: never Patient Tobacco Use Status: Never used Tobacco Second Hand Smoke Exposure: No service: No Current occupational status: employed Cognitive needs: No Hearing needs: No Vision needs: No Physical Exam Vital Signs: Last Vital Signs Pulse 81 09/15/23 14:56 BP 120/84 09/15/23 15:16 Pulse Ox 97 09/15/23 14:56 Oxygen Delivery Method Room Air 09/15/23 14:56 BMI result Body Mass Index 39.7 Const General: comfortable Nutritional Appearance: well nourished Orientation/consciousness: patient oriented x3 HEENT Head: No normal to inspection Mouth: moist mucous membranes Neck Neck: Yes supple and Yes no JVD Resp Auscultation: clear to auscultation bilaterally, no rales and rub present Cardio Jugular venous distension: no JVD Palpation: no palpable S3 and no palpable S4 Heart sounds: no rubs GI Palpation (GI): Soft to palpation and nontender Percussion: No Fluid wave present General: Yes no CVA tenderness Back/Spine/Pelvis Back: no CVA tenderness Skin General skin exam: no rashes or lesions noted Neuro General: patient oriented x3 Extrem General: Yes no pedal edema and No clubbing Results Reviewed Results Reviewed: RIGHT KIDNEY: 18.7 x 9.0 x 8.3 cm (SAG x AP x TRV). Severe hydronephrosis redemonstrated. No renal calculi. Diffuse renal cortical thinning. Limited visualization. LEFT KIDNEY: 12.2 x 6.6 x 6.3 cm (SAG x AP x TRV). No hydronephrosis. No renal calculi. Renal cortical thickness is normal. Limited visualization. ADDITIONAL FINDINGS: Provided history of situs inversus. US/US renal BI IMPRESSION: 1. Severe right hydronephrosis redemonstrated. No renal calculi. Diffuse renal cortical thinning. Limited visualization. 2. Provided history of situs inversus. Nephrology Results: Hgb 15.9 g/dl (14.0-18.0) 08/14/23 WBC 12.3 X10*3/uL (4.8-10.8) H 08/14/23 Plt Count 204 X10*3/uL (160-400) 08/14/23 Sodium 142 mmol/L (135-145) 08/14/23 Potassium 3.6 mmol/L (3.3-5.1) 08/14/23 Chloride 105 mmol/L (96-108) 08/14/23 Carbon Dioxide 28 mmol/L (22-29) 08/14/23 BUN 13 mg/dL (9-16) 08/14/23 Creatinine 1.56 mg/dL (0.5-1.4) H 08/14/23 Calcium 9.2 mg/dL (8.4-10.2) 08/14/23 Urine Protein 100 (2+) mg/dL (Neg-Trace) H 08/14/23 Renal US 08/21/23 Assessment & Plan Assessment & Plan (1) Hydronephrosis of right kidney: Comment: Severe right hydro Code(s): N13.30 - Unspecified hydronephrosis Category: Medical Plan: Follow with urology \await Lasix scan h/o atrophic right kidney/chronic hydro (2) Chronic kidney disease: Comment: In the setting of hypertension obesity and multiple renal stones and right-sided hydronephrosis. Baseline creatinine is around 1.3-1.5 mg/dL. Code(s): N18.9 - Chronic kidney disease, unspecified Category: Medical Plan: Goal is to slow the progression of renal disease Maintain blood pressure less than 130/80 Continue to avoid nephrotoxic agents. (3) Renal calculi: Code(s): N20.0 - Calculus of kidney Category: Medical Plan: 24 hour urine studies shows high NA and urinc acid Volume is OK Encouraged him to stay on a low-sodium diet Increase fluid intake to maintain a urine output of 2 L per 24 hours (4) Hypertension: Code(s): I10 - Essential (primary) hypertension Category: Medical Qualifiers: Hypertension type: primary hypertension Qualified Code(s): I10 - Essential (primary) hypertension Plan: Blood pressure acceptable Initial blood pressure was elevated but repeat was within normal range. Contin ue the amlodipine at the current dose Needs to stay on low-sodium diet Discussed weight loss and increasing physical activities. (5) Chronic headaches: Code(s): R51.9 - Headache, unspecified; G89.29 - Other chronic pain Category: Medical Plan: This may need further evaluation. Again encouraged him to avoid NSAIDs. He can use Tylenol as needed for now. Encouraged him to follow up with PCP Orders: Orders Comprehensive Met. Panel 5 Months N18.9 - Chronic kidney disease, unspecified Coding Level of Care Code Est Pt Level 4 (67615) Diagnoses Hydronephrosis of right kidney N13.30 Chronic kidney disease N18.9 Renal calculi N20.0 Hypertension I10 Hypertension type: primary hypertension Chronic headaches R51.9; G89.29
[2023-09-15 15:16] VITALS: BP 120/84
== END 2023-09-15 15:21 | disposition home or self-care (01) ==
PROVIDERS: PCP Internal Medicine; Visit Provider Internal Medicine Hypertension Specialist
DX: N13.30 Unspecified hydronephrosis (principal); I12.9 Hypertensive chronic kidney disease with stage 1 through stage 4 chronic kidney disease, or unspecified chronic kidney disease; N18.9 Chronic kidney disease, unspecified; N20.0 Calculus of kidney; R51.9 Headache, unspecified; G89.29 Other chronic pain
CPT/HCPCS: 99214

== ENCOUNTER → 2023-09-15 14:55 | Outpatient (BNVA) | payer BC, SELFPAY | PROVIDERS: PCP Internal Medicine; Visit Provider Internal Medicine Hypertension Specialist ==

== ENCOUNTER → 2023-10-16 10:48 | Outpatient (REF) | payer BC, SELFPAY ==
--- NOTE | ~2023-10-16 | NM_ITS ---
EXAMINATION: RENAL DYNAMIC IMAGING STUDY WITH LASIX CLINICAL INFORMATION: Unspecified hydronephrosis. COMPARISON: The previous study dated 12/22/2018 is available for comparison. Renal ultrasound dated 08/21/[address] scan of the abdomen dated 06/01/2021 are also available for comparison. TECHNIQUE: Serial gamma scintillation camera images were obtained over the posterior trunk during the initial transit and subsequent distribution of a bolus intravenous injection of 10 mCi of Tc-99m DTPA. At 30 minutes later, 40 mg of Lasix was administered intravenously and an additional 30 minutes of images obtained. FINDINGS: Initial rapid sequence images show prompt and normal-appearing perfusion to the left kidney. The right kidney is not visualized during the flow images. Subsequent sequential static images obtained up to 30 minutes show good concentration in the left kidney. There is evidence of excretory function in the left kidney by 5 minutes post injection. The right kidney is not visualized at any time during the study. Urinary bladder is visualized initially at 78 minutes post injection. At 30 minutes postinjection there is good visualization of activity in the urinary bladder and only minimal retention in the left renal pelvis which does not appear dilated. Following Lasix administration, there is prompt washout of the small amount of retained activity present in the left renal pelvis at the time of Lasix administration. Continued filling of the urinary bladder occurs. There continues to be no evidence of excretory function in the right kidney. The T-1/2 washout time following Lasix administration is 9 minutes on the left. Because of the absence of excretory function on the right, a meaningful T-1/2 washout time on this side cannot be calculated. The relative function of the two kidneys based on the 2-3 minute images are: Left 100% and right 0%. Compared to the previous study dated 12/22/2018, there has not been a significant change. NM/NM renal flow w pharm int IMPRESSION: LEFT KIDNEY: Normal perfusion and function. No hydronephrosis or outflow obstruction. RIGHT KIDNEY: This kidney is nonfunctioning or absent.
== END ==
LOC: HO.NUCMED 10:48
PROVIDERS: PCP Internal Medicine; Visit Provider Urology
DX: N13.30 Unspecified hydronephrosis (principal)
CPT/HCPCS: 78708; A9539; J1940

== ENCOUNTER 2023-10-22 14:24 | Outpatient (AMB) | payer BC, SELFPAY ==
--- NOTE | 2023-10-22 14:27 | A.OFFVIS_ITS ---
Intake Visit Reasons: follow up/asix renogram(set) Intake Note: Patient presents today via telephone for a follow-up : Urology Medications: none Blood Thinner: none Childcare Provider Required: No Accompanied by: Self / Same As Patient Allergies No Known Allergies [No Known Allergies*] Allergy (Verified 10/22/23 14:28) HPI Comments Details: Jered is a pleasant male. He is a patient of Dr. Kevin. He is seen for the following urologic conditions - right hydroureteronephrosis Telemedicine Evaluation 15 min Consultation Celnyx Tr Video Lasix renogram shows 0 function right kidney Discussed creatinine which has drifted over past few years. Emphasized need to manage blood sugar and follow with Nephrology. Should be properly hydrated when performed creatinine lab to reduce confounding dehydration Follow-up p.r.n. Right hydroureteronephrosis Last visit by patient 2020 Known nonfunctional right kidney with prior damage from kidney stones Creatinine 08/09 1.6 - 2019 - 1.3 Lasix renogram - 0 function right kidney [facility] Medical History (Updated 09/16/23 @ 11:06 by Alexander Loera MD) Situs inversus Abnormal cystoscopy Chronic kidney disease History of renal stone Family History Mother Diabetes Hypertension Social History Household Members: None Housing: House Do you presently have visiting nurse or other home services: No Alcohol intake: never Patient Tobacco Use Status: Never used Tobacco Second Hand Smoke Exposure: No service: No Current occupational status: employed Cognitive needs: No Hearing needs: No Vision needs: No Review of Systems Const All systems reviewed & are unremarkable except as noted in HPI and below Reports no additional complaints Resp Reports no additional complaints GI Reports no additional complaints Reports as per HPI Musc Reports no additional complaints Physical Exam Telemedicine evaluation Appropriate responses Regular breathing rate and rhythm HEENT Head: Yes normal to inspection Ears: hearing grossly normal bilaterally Eyes General: appearance normal, both eyes and all related structures Neck Neck: Yes normal visual inspection Chest Chest palpation & inspection: normal inspection of the chest Resp Effort & Inspection: normal respiratory effort and able to speak in complete sentences Telehealth Telehealth Telehealth Platform: [employer] Location of provider rendering services: practice address Location of patient: address on file Patient Identification confirmed using: Name, : Yes Telehealth method: video Patient verbally consented to treatment: Yes Patient verbally consented to billing insurance company: Yes Patient informed of any privacy concerns related to visit: Yes Minutes spent on Phone/Video with Pt.: 15 Assessment & Plan Assessment & Plan (1) Hydronephrosis of right kidney: Comment: Severe right hydro Code(s): N13.30 - Unspecified hydronephrosis Category: Medical Plan P.r.n. follow-up Patient Instructions: Imaging studies, laboratory and physical exam results were discussed and reviewed in detail. No major barriers to patient understanding were identified. An opportunity to ask questions regarding the treatment plan was provided. All questions were answered. The patient expressed understanding and agreement with the above treatment plan. The patient is aware they should contact our office by phone for worsening of their current condition or the appearance of new urologic symptoms. Compliance is encouraged with any medications and followup testing that is ordered. It is a privilege to participate in the urologic care of your patient. If you have any questions or concerns regarding treatment for the above conditions, or other urologic issues, please do not hesitate to contact me. The office telephone contact is [phone]. This note is constructed using voice recognition software. While every effort has been made to ensure accuracy finish molder errors may have been included. Yours sincerely, Dr Andrea Hilliard MD, [facility] - Urology Providers of Expert, Compassionate Care for the Genitourinary System Coding Level of Care Code Tele Est Pt Level 3 (64594) Diagnoses Hydronephrosis of right kidney N13.30
== END 2023-10-22 15:06 | disposition home or self-care (01) ==
LOC: HO.HUSH 14:25
PROVIDERS: PCP Internal Medicine; Visit Provider Urology
DX: N13.30 Unspecified hydronephrosis (principal)
CPT/HCPCS: 99213

== ENCOUNTER → 2023-10-22 14:24 | Outpatient (BNVA) | payer BC, SELFPAY | PROVIDERS: PCP Internal Medicine; Visit Provider Urology ==

== ENCOUNTER 2024-01-16 14:39 | Outpatient (AMB) | payer BC, SELFPAY ==
--- NOTE | 2024-01-16 14:51 | MHC.PC.OV ---
Vital Signs 01/16/24 14:52 Height 5 ft 6 in Weight 232 lb BMI 37.4 BP 138/62 Blood Pressure Location Lt brachial Position Sitting Pulse 84 Pulse Source Pulse Oximeter Pulse Oximetry (%) 96 Oxygen Delivery Method Room Air Intake Visit Reasons: Annual exam Intake Note: Patient is here today for a physical. Media Sales Consultant Required: No Gear Tooth Lapping Machine Operator: Not Required per policy Accompanied by: Self / Same As Patient Allergies No Known Allergies [No Known Allergies*] Allergy (Verified 01/16/24 14:51) Medication List - Last Reconciled 01/16/24 by Kelechi Neves MD amlodipine (Norvasc) 10 mg PO DAILY Tobacco use date assessed: 01/16/24 Dental Screening Dental Screen Date: 08/14/23 HPI Annual exam HPI Details 83-year-old obese male with hypertension chronic kidney disease hepatic steatosis and nephrolithiasis coming in for follow-up. Last seen in July 2023. Patient was seen by Urology in October for right hydroureteronephrosis patient has a known nonfunctional right kidney with prior damage to kidney stones. Patient also follows up with Nephrology seen in August 2020 had severe right side hydronephrosis had lithotripsy done hypertension history on amlodipine 10 mg once a day has chronic headaches and takes ibuprofen patient was advised getting blood pressure under control 130/80 avoiding NSAIDs keeping well hydrated low-sodium diet weight loss [facility] Medical History (Updated 01/16/24 @ 15:22 by Kelechi Neves MD) Situs inversus Abnormal cystoscopy Chronic kidney disease History of renal stone Family History (Updated 01/16/24 @ 14:51 by MARIBEL Carcamo) Mother Diabetes Hypertension Social History Household Members: None Housing: House Do you presently have visiting nurse or other home services: No Alcohol intake: never Patient Tobacco Use Status: Never used Tobacco e-Cigarette/Vaping Use: Never Used Second Hand Smoke Exposure: No service: No Current occupational status: employed Cognitive needs: No Hearing needs: No Vision needs: Yes (Glasses) Questionnaire PHQ-9 Over the last 2 weeks, how often have you been bothered by any of the following problems? 4. Feeling tired or having little energy: not at all 5. Poor appetite or overeating: not at all 6. Feeling bad about yourself - or that you are a failure or have let yourself or your family down: not at all 7. Trouble concentrating on things, such as reading the newspaper or watching television: not at all 8. Moving or speaking so slowly that other people could have noticed. Or the opposite - being so fidgety or restless that you have been moving around a lot more than usual: not at all 9. Thoughts that you would be better off or of hurting yourself in some way: not at all Source: Developed by Drs. Grant Taylor, Belinda Drummond, Scotty Duckworth and colleagues, with an educational hudson from [employer]. Thrive Questionnaire Date Thrive assessed: 08/14/23 I am a: Patient What is your living situation today?: I have a steady place to live Within the past 12 months, did the food you bought not last and you didn't have the money to get more?: Never true Within the past 12 months, did you worry whether your food would run out before you got money to buy more?: Never true Do you have trouble paying for medicines?: Yes Do you have trouble getting transportation to medical appointments?: No Do you have trouble paying your heating and electricity bill?: No Do you have trouble taking care of your child, family member or friend?: No Do you have trouble with day-to-day activities such as bathing, preparing meals, shopping, managing finances, etc.?: No Are you currently unemployed and looking for a job?: No Are you interested in more education?: No Please select the resources that you would like help with: None Currently or been in a relationship where the following occur: I choose not to answer THRIVE Score: 0 AUDIT C Alcohol Use Questionnaire (AUDIT-C) 1. How often do you have a drink containing alcohol?: Never Total Score: 0 LYSSA-7 AMB Questionnaire LYSSA-7 Date LYSSA - 7 assessed: 08/14/23 Feeling nervous, anxious, or on edge: 0 = Not at all Not being able to stop or control worryin = Not at all Worrying too much about different things: 0 = Not at all Trouble relaxin = Not at all Being so restless that it is hard to sit still: 0 = Not at all Becoming easily annoyed or irritable: 0 = Not at all Feeling afraid as if something awful might happen: 0 = Not at all Total LYSSA-7 score (0-4 normal; 5-9 mild; 10-14 moderate; 15-21 severe): 0 Source: Developed by Drs. Grant Taylor, Belinda Drummond, Scotty Duckworth and colleagues, with an educational hudson from [employer]. Review of Systems Const Denies poor appetite and Denies weakness Eyes Denies no additional complaints ENT Reports Normal hearing present, Denies dizziness, Denies nasal congestion, Denies tinnitus and Denies sore throat Card Denies chest pain, Denies syncope, Denies rapid heart rate and Denies dyspnea Resp Denies cough and Denies dyspnea GI Denies change in stool character, Reports constipation, Denies diarrhea, Denies nausea and Denies vomiting Denies dysuria and Denies urinary frequency Neuro Reports Normal hearing present, Denies confusion, Denies dizziness, Denies syncope and Denies weakness Psych Denies confusion Physical exam (Primary Care) Vital Signs: Last Vital Signs Pulse 84 01/16/24 14:52 BP 138/62 01/16/24 14:52 Pulse Ox 96 01/16/24 14:52 Oxygen Delivery Method Room Air 01/16/24 14:52 BMI result Body Mass Index 37.4 Tobacco/Smoking Status: Tobacco use Status Tobacco use date assessed 01/16/24 01/16/24 14:56 Patient Tobacco Use Status Never used Tobacco 01/16/24 14:56 e-Cigarette/Vaping Use Never Used 01/16/24 14:56 Thrive Assessment: Date of Thrive Assessment Date Thrive assessed 08/14/23 01/16/24 14:56 Currently or been in a relationship where the following occur: I choose not to answer Const General: No confusion Orientation/consciousness: No confusion HENMT Head: Yes normocephalic Ears: external ears normal and TM's normal bilaterally Face and sinus: Yes normal facial exam Mouth: moist mucous membranes Throat: Yes tonsils normal Eyes Conjunctivae: conjunctivae normal Pupils: Equal, round and reactive pupils present and Pupil accommodation reflex normal Direct Ophthalmoscopy: normal light reflex Neck Neck: No lymphadenopathy Thyroid: Thyroid normal Chest Chest palpation & inspection: normal inspection of the chest Resp Effort & Inspection: normal respiratory effort and no audible wheezes Auscultation: clear to auscultation bilaterally, no crackles, no wheezes and lung sounds not diminished Cardio Rate: regular rate Rhythm: regular rhythm Peripheral pulses: radial pulses present and dorsalis pedis present GI Other: visual rectal - negative Palpation (GI): no masses Auscultation: normal bowel sounds and normoactive bowel sounds Rectal Exam - Male: Yes deferred Male General Exam: Yes normal external exam Skin General skin exam: no rashes or lesions noted Rashes: no rashes Neuro General: No confusion Cranial nerves: Yes Equal, round and reactive pupils present and Yes Normal hearing present Cognition (Neuro): normal cognition Gait exam (Neuro): Normal gait present Motor exam (neuro): 5/5 motor strength present throughout Deep tendon reflexes (DTR's): Right brachioradialis reflex intensity grade: 2+, Left brachioradialis reflex intensity grade: 2+, Right patellar reflex intensity grade: 2+ and Left patellar reflex intensity grade: 2+ Extrem Other: L foot derformity- plantar fasciitis General: No edema Results AMB Hemoglobin A1c AMB Hemoglobin A1c 5.8 % Last Edit by MARIBEL Carcamo on 01/16/24 15:28 Assessment and Plan Assessment & Plan (1) Annual physical exam: Code(s): Z00.00 - Encounter for general adult medical examination without abnormal findings Plan: Patient is advised to eat healthy, keep well hydrated, keep active and have adequate sleep. (2) Atrophy of right kidney: Code(s): N26.1 - Atrophy of kidney (terminal) Plan: Keep well hydrated avoid NSAIDs (3) Obesity (BMI 30-39.9): Code(s): E66.9 - Obesity, unspecified Plan: Diet and exercise (4) Hepatic steatosis: Code(s): K76.0 - Fatty (change of) liver, not elsewhere classified Plan: Low-fat diet and exercise (5) Renal calculi: Code(s): N20.0 - Calculus of kidney Plan: Keep well hydrated (6) Chronic kidney disease: Comment: In the setting of hypertension obesity and multiple renal stones and right-sided hydronephrosis. Baseline creatinine is around 1.3-1.5 mg/dL. Code(s): N18.9 - Chronic kidney disease, unspecified Plan: Control the blood pressure, keep well hydrated, avoid NSAIDs (7) Hypertension: Code(s): I10 - Essential (primary) hypertension Qualifiers: Hypertension type: primary hypertension Qualified Code(s): I10 - Essential (primary) hypertension Plan: Blood pressure presently on amlodipine 10 mg once a day (8) Impaired glucose tolerance: Code(s): R73.02 - Impaired glucose tolerance (oral) Plan: Decrease the amount of carbohydrate intake, pasta, bread, rice and potatoes are all sugar and that is aside from all the sweet stuff, remember that fruits are good but they are Sweet also. Orders: Orders AMB Hemoglobin A1c Today Z13.9 - Encounter for screening, unspecified Complete Blood Count Auto Diff 6 Months N18.9 - Chronic kidney disease, unspecified Comprehensive Met. Panel 6 Months N18.9 - Chronic kidney disease, unspecified Hemoglobin A1c 6 Months N18.9 - Chronic kidney disease, unspecified Vitamin B12 and Folate 6 Months N18.9 - Chronic kidney disease, unspecified Medications: New cyanocobalamin (vitamin B-12) 1,000 mcg PO DAILY 30 caps 3RF E53.8 - Deficiency of other specified B group vitamins Coding Level of Care Code Est Pt Prev Care 40-64y(94828) Diagnoses Annual physical exam Z00.00 Atrophy of right kidney N26.1 Obesity (BMI 30-39.9) E66.9 Hepatic steatosis K76.0 Renal calculi N20.0 Chronic kidney disease N18.9 Hypertension I10 Hypertension type: primary hypertension Impaired glucose tolerance R73.02
[2024-01-16 14:52] VITALS: BP 138/62; PULSE 84; O2SAT 96; BMI 37.4
== END 2024-01-16 15:42 | disposition home or self-care (01) ==
PROVIDERS: PCP Internal Medicine; Visit Provider Internal Medicine
DX: Z00.00 Encounter for general adult medical examination without abnormal findings (principal); I12.9 Hypertensive chronic kidney disease with stage 1 through stage 4 chronic kidney disease, or unspecified chronic kidney disease; N18.9 Chronic kidney disease, unspecified; E66.9 Obesity, unspecified; Z68.37 Body mass index [BMI] 37.0-37.9, adult; N26.1 Atrophy of kidney (terminal); K76.0 Fatty (change of) liver, not elsewhere classified; R73.02 Impaired glucose tolerance (oral); N20.0 Calculus of kidney
CPT/HCPCS: 83036; 99396

== ENCOUNTER 2024-01-22 14:17 | Outpatient (REF) | payer SELFPAY ==
[2024-01-22 15:41] LABS: Appearance Urine Turbid; Color Urine Yellow; Glucose Urine UA Negative (Negative); Leukocyte Esterase Urine Large (3+) (Negative); Nitrite Urine Positive (Negative); UMIC TRIGGER UACC YES; Urine Blood Moderate (2+) (Negative); Urine Ketones Trace mg/dL (Negative); Urine Protein 300 (3+) mg/dL (Neg-Trace)
[2024-01-22 16:10] LABS: Bacteria Urine 3+ (None Seen); Hyaline Casts Urine 0-2 /LPF (0-2); RBC Urine >20 /HPF (0-2); Squamous Epithelial Cell Urine 0-2 /HPF (0-2); UACC Culture Trigger YES; WBC Urine >50 /HPF (0-5)
== END 2024-01-22 14:18 | disposition home or self-care (01) ==
LOC: HO.LAB 14:17
PROVIDERS: PCP Internal Medicine; Visit Provider Internal Medicine
DX: R39.9 Unspecified symptoms and signs involving the genitourinary system (principal)
CPT/HCPCS: 81001; 87086

== ENCOUNTER 2024-02-06 09:48 | Outpatient (REF) | payer SELFPAY ==
[2024-02-06 11:40] LABS: Alanine Aminotransferase 25 U/L (0-40); Albumin Level 4.4 g/dL (3.5-5.0); Alkaline Phosphatase 124 U/L (39-117); Anion Gap 15 (12-20); Aspartate Amino Transferase 14 U/L (5-37); Bilirubin Total 0.6 mg/dL (0.0-1.0); Blood Urea Nitrogen 11 mg/dL (9-16); Calcium 9.4 mg/dL (8.4-10.2); Carbon Dioxide 26 mmol/L (22-29); Chloride 106 mmol/L (96-108); Estimated Glomerular Filt Rate > 60; Glucose Random 85 mg/dL (60-115); Potassium 3.9 mmol/L (3.3-5.1); Sodium 143 mmol/L (135-145); Total Protein 7.7 g/dL (6.5-8.0)
== END 2024-02-06 09:49 | disposition home or self-care (01) ==
LOC: HO.LAB 09:48
PROVIDERS: PCP Internal Medicine; Visit Provider Internal Medicine Hypertension Specialist
DX: N18.9 Chronic kidney disease, unspecified (principal)
CPT/HCPCS: 36415; 80053

== ENCOUNTER 2024-02-09 10:00 | Outpatient (AMB) | payer SELFPAY ==
[2024-02-09 10:08] VITALS: BP 128/86; PULSE 61; O2SAT 99; BMI 36.2
--- NOTE | 2024-02-09 10:08 | HO.NEPHOV_ITS ---
Vital Signs 02/09/24 10:08 Height 5 ft 6 in Weight 224 lb BMI 36.2 BP 128/86 Blood Pressure Location Rt brachial Position Sitting Pulse 61 Pulse Source Pulse Oximeter Pulse Oximetry (%) 99 Oxygen Delivery Method Room Air Intake Visit Reasons: Chronic kidney disease/ 5 MO FU Physical Therapy Nurse Required: No Accompanied by: Self / Same As Patient Allergies No Known Allergies [No Known Allergies*] Allergy (Verified 02/09/24 10:09) Medication List - Last Reconciled 02/09/24 by Alexander Loera MD amlodipine (Norvasc) 10 mg PO DAILY ciprofloxacin HCl 250 mg PO BID cyanocobalamin (vitamin B-12) 1,000 mcg PO DAILY HPI Comments Details: 43-year-old man with a history of multiple renal stones. Back in 2020 he had severe right-sided hydronephrosis. He underwent lithotripsy. Has had a follow-up ultrasonogram last week and results are pending. Kristian has a history of hypertension. Amlodipine 10 mg was added about a week ago. Serum creatinine has been fluctuating between 1.31.5 mg/dL and hence this referral. He has history of chronic headaches. He takes ibuprofen about once a week. No history of abuse of any NSAIDs. He works in a [employer] He denies any smoking or alcohol abuse at present. [facility] Medical History (Updated 01/16/24 @ 15:22 by Kelechi Neves MD) Situs inversus Abnormal cystoscopy Chronic kidney disease History of renal stone Family History Mother Diabetes Hypertension Social History Household Members: None Housing: House Do you presently have visiting nurse or other home services: No Alcohol intake: never Patient Tobacco Use Status: Never used Tobacco e-Cigarette/Vaping Use: Never Used Second Hand Smoke Exposure: No service: No Current occupational status: employed Cognitive needs: No Hearing needs: No Vision needs: Yes (Glasses) Physical Exam Vital Signs: Last Vital Signs Pulse 61 02/09/24 10:08 BP 128/86 02/09/24 10:08 Pulse Ox 99 02/09/24 10:08 Oxygen Delivery Method Room Air 02/09/24 10:08 BMI result Body Mass Index 36.2 Results Reviewed Nephrology Results: Sodium 143 mmol/L (135-145) 02/06/24 Potassium 3.9 mmol/L (3.3-5.1) 02/06/24 Chloride 106 mmol/L (96-108) 02/06/24 Carbon Dioxide 26 mmol/L (22-29) 02/06/24 BUN 11 mg/dL (9-16) 02/06/24 Creatinine 1.25 mg/dL (0.5-1.4) 02/06/24 Calcium 9.4 mg/dL (8.4-10.2) 02/06/24 Urine Protein 300 (3+) mg/dL (Neg-Trace) H 01/22/24 Assessment & Plan Assessment & Plan (1) Hydronephrosis of right kidney: Comment: Severe right hydro Code(s): N13.30 - Unspecified hydronephrosis Category: Medical Plan: Follow with urology s/p Lasix scan - Non functioning right kidney h/o atrophic right kidney/chronic hydro (2) Chronic kidney disease: Comment: In the setting of hypertension obesity and multiple renal stones and right-sided hydronephrosis. Baseline creatinine is around 1.3-1.5 mg/dL. Code(s): N18.9 - Chronic kidney disease, unspecified Category: Medical Plan: Goal is to slow the progression of renal disease Maintain blood pressure less than 130/80 Continue to avoid nephrotoxic agents. (3) Renal calculi: Code(s): N20.0 - Calculus of kidney Category: Medical Plan: 24 hour urine studies shows high NA and urinc acid Volume is OK Encouraged him to stay on a low-sodium diet Increase fluid intake to maintain a urine output of 2 L per 24 hours (4) Hypertension: Code(s): I10 - Essential (primary) hypertension Category: Medical Qualifiers: Hypertension type: primary hypertension Qualified Code(s): I10 - Essential (primary) hypertension Plan: Blood pressure acceptable Initial blood pressure was elevated but repeat was within normal range. Continue the amlodipine at the current dose Needs to stay on low-sodium diet Discussed weight loss and increasing physical activities. (5) Chronic headaches: Code(s): R51.9 - Headache, unspecified; G89.29 - Other chronic pain Category: Medical Plan: Again encouraged him to avoid NSAIDs. He can use Tylenol as needed for now. Encouraged him to follow up with PCP Orders: Orders Oxalate, 24 Hr 1 Year N13.30 - Unspecified hydronephrosis, N20.0 - Calculus of kidney Calcium, 24 Hr Ur 1 Year N13.30 - Unspecified hydronephrosis, N20.0 - Calculus of kidney Uric Acid, 24Hr Urine Group 1 Year N13.30 - Unspecified hydronephrosis, N20.0 - Calculus of kidney Uric Acid 1 Year N13.30 - Unspecified hydronephrosis, N20.0 - Calculus of kidney Sodium, 24Hr Urine Group 1 Year N13.30 - Unspecified hydronephrosis, N20.0 - Calculus of kidney Creatinine, 24 Hr Group 1 Year N13.30 - Unspecified hydronephrosis, N20.0 - Calculus of kidney Citric Acid 24hr Urine 1 Year N13.30 - Unspecified hydronephrosis, N20.0 - Calculus of kidney Basic Metabolic Panel 1 Year N13.30 - Unspecified hydronephrosis, N20.0 - Calculus of kidney Coding Level of Care Code Est Pt Level 4 (83396) Diagnoses Hydronephrosis of right kidney N13.30 Chronic kidney disease N18.9 Renal calculi N20.0 Hypertension I10 Hypertension type: primary hypertension Chronic headaches R51.9; G89.29
== END 2024-02-09 10:26 | disposition home or self-care (01) ==
PROVIDERS: PCP Internal Medicine; Visit Provider Internal Medicine Hypertension Specialist
DX: N13.30 Unspecified hydronephrosis (principal); I12.9 Hypertensive chronic kidney disease with stage 1 through stage 4 chronic kidney disease, or unspecified chronic kidney disease; N18.9 Chronic kidney disease, unspecified; N20.0 Calculus of kidney; R51.9 Headache, unspecified; G89.29 Other chronic pain
CPT/HCPCS: 99214

== ENCOUNTER → 2024-02-09 10:00 | Outpatient (BNVA) | payer SELFPAY | PROVIDERS: PCP Internal Medicine; Visit Provider Internal Medicine Hypertension Specialist | DX: I12.9 Hypertensive chronic kidney disease with stage 1 through stage 4 chronic kidney disease, or unspecified chronic kidney disease (principal); N18.9 Chronic kidney disease, unspecified; N13.30 Unspecified hydronephrosis; G89.29 Other chronic pain; R51.9 Headache, unspecified; Z87.442 Personal history of urinary calculi | CPT/HCPCS: 99212 ==

== ENCOUNTER 2024-06-10 09:39 | Emergency (ER) | payer SELFPAY ==
--- NOTE | ~2024-06-10 | XR_ITS ---
EXAMINATION: XR CHEST CLINICAL INFORMATION: cough COMPARISON: 04/26/2021, 09/18/2020. TECHNIQUE: 2 views of the chest were obtained. FINDINGS: There is dextrocardia with situs inversus totalis. The cardiac, hilar, and mediastinal contours otherwise normal. The lungs are clear bilaterally. There is no pneumothorax or pleural effusion. There is no focal osseous or soft tissue abnormality. XR/XR chest 2V IMPRESSION: 1. 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 This is unchanged. 2. No active pulmonary disease. Electronically signed by: Glenn Alvarado MD 06/10/2024 10:29 AM [facility]
[2024-06-10 09:56] VITALS: BP 149/103; PULSE 105; RESP 18; TEMP 36.1; O2SAT 98; BMI 37.1
[2024-06-10 12:04] LABS: MANUAL DIFF FLAG NO
[2024-06-10 12:05] LABS: Basophils Absolute Auto 0.1 X10*3/uL (0.0-0.2); Basophils Percent Auto 0.6 % (0-2); Eosinophils Absolute Auto 0.1 X10*3/uL (0.0-0.4); Eosinophils Percent Auto 0.4 % (0-4); Hematocrit 46.5 % (42.0-52.0); Hemoglobin 15.1 g/dl (14.0-18.0); Imm Gran Abs Auto 0.07 X10*3/uL (0.00-0.03); Imm Gran Pct Auto 0.5 % (0.0-0.4); Lymphocytes Absolute Auto 1.7 X10*3/uL (1.2-4.9); Lymphocytes Percent Auto 11.8 % (20-40); Mean Corpuscular HGB Conc 32.5 g/dl (31.0-36.0); Mean Corpuscular Hemoglobin 26.2 pg (27.0-33.0); Mean Corpuscular Volume 80.7 fL (80.0-98.0); Mean Platelet Volume 9.7 fL (9.4-12.4); Monocytes Absolute Auto 0.6 X10*3/uL (0.1-1.2); Monocytes Percent Auto 4.2 % (2-11); Neutrophils Absolute Auto 11.9 x10*3/uL (2.0-8.3); Neutrophils Percent Auto 82.5 % (45-73); Platelet Count 199 X10*3/uL (160-400); Red Blood Count 5.76 X10*6/uL (4.60-5.80); Red Cell Distribution Width 13.4 % (11.0-16.0); White Blood Count 14.4 X10*3/uL (4.8-10.8)
[2024-06-10 12:25] LABS: Alanine Aminotransferase 15 U/L (0-40); Albumin Level 4.4 g/dL (3.5-5.0); Alkaline Phosphatase 131 U/L (39-117); Anion Gap 12 (12-20); Aspartate Amino Transferase 24 U/L (5-37); Bilirubin Total 0.8 mg/dL (0.0-1.0); Blood Urea Nitrogen 10 mg/dL (9-16); Calcium 9.5 mg/dL (8.4-10.2); Carbon Dioxide 26 mmol/L (22-29); Chloride 108 mmol/L (96-108); Creatinine Clr Calc Pharmacy 89.2; Estimated Glomerular Filt Rate > 60; Glucose Random 88 mg/dL (60-115); Sodium 142 mmol/L (135-145)
[2024-06-10 12:45] LABS: Influenza A PCR NEGATIVE (Negative); Influenza B PCR NEGATIVE (Negative); Resp Syncy Virus RNA Qual PCR NEGATIVE (Negative); SARS COV2 PCR INHOUSE NEGATIVE (Negative)
--- NOTE | 2024-06-10 13:27 | ED.URI ---
HPI - URI/Sore Throat General Chief Complaint: Upper Respiratory Symptoms Stated Complaint: cough diff swallowing dizzy Time Seen by Provider: 06/10/24 13:27 Source: patient and old records reviewed Mode of arrival: ambulatory Limitations: no limitations History of Present Illness ED Provider: PAVEL NATHAN Narrative: 44 yo male with PMH of CKD, HTN, kidney stones, situs inversus totalis who notes he has been having 2 weeks of a cough that is just not getting better. He notes the cough has been giving him a headache and today he has felt dizzy on and off. He has nausea as well over the past 2 weeks. No travel, no sick contacts. He has been able to eat and drink. He was at work today and told them he needed to get checked out so he came to the ED. No chest pain, numbness, weakness. He has not taken any medications today. He does not have a fever that he knows of. He denies smoking or asthma hx. MD elicited complaint: cough and other (URI) Onset (ago): week(s) (2) Consistency: intermittent Severity: moderate Description of mucous: clear Able to tolerate fluids by mouth: Yes Exacerbating factors: other (coughing) Relieving factors: nothing Associated symptoms: chills, headache, rhinorrhea, nasal congestion, sore throat and cough Treatments prior to arrival: none Related Data Previous Rx's ?Medication ?Instructions ?Recorded amlodipine 10 mg tablet (Norvasc) 10 mg PO DAILY #90 tabs 08/14/23 cyanocobalamin (vitamin B-12) 1,000 mcg PO DAILY #30 caps 01/16/24 1,000 mcg capsule ciprofloxacin HCl 250 mg tablet 250 mg PO BID #14 tabs 01/22/24 albuterol sulfate 90 mcg/actuation 2 puff inhalation QID PRN 06/10/24 aerosol inhaler shortness of breath or wheezing #6.7 grams amoxicillin 875 mg-potassium 1 tab PO BID #14 tabs 06/10/24 clavulanate 125 mg tablet codeine 7.5 mg-guaifenesin 225 5 ml PO Q6H PRN cough #160 mL 06/10/24 mg/5 mL oral liquid ondansetron 4 mg disintegrating 4 mg PO Q8H PRN nausea and 06/10/24 tablet vomiting #20 tabs prednisone 20 mg tablet 40 mg (2 x 20 mg) PO DAILY 5 days 06/10/24 #10 tabs Allergies Allergy/AdvReac Type Severity Reaction Status Date / Time No Known Allergies Allergy Verified 06/10/24 09:59 [No Known Allergies*] Review of Systems Review of Systems: Constitutional : No Fever, No Chills, pos Fatigue ENT/Mouth : pos sore throat, pos Rhinorrhea Eyes: No Eye Pain, No Swelling, No Redness Cardiovascular : No Chest Pain, No SOB, No Dyspnea on Exertion Respiratory : pos Cough, No Sputum Gastrointestinal : No Nausea, No Vomiting, No Diarrhea, No abdominal Pain Genitourinary : No Dysuria, No Urinary Frequency, No Hematuria, Musculoskeletal : No joint pain, No Myalgias, No Joint Swelling Skin : No Skin Lesions, No rash Neuro : No Weakness, No Numbness, pos Dizziness, positive Headache All other systems reviewed and are negative FOR[facility]LY [facility], [facility] Past Medical History Attestation statement: The following information was validated with the patient. Source: old records reviewed Medical History Situs inversus Abnormal cystoscopy Chronic kidney disease History of renal stone Family History Family History Mother Diabetes Hypertension Social History Social History Household Members: None Housing: House Do you presently have visiting nurse or other home services: No Alcohol intake: never Patient Tobacco Use Status: Never used Tobacco e-Cigarette/Vaping Use: Never Used Second Hand Smoke Exposure: No Advance Directives: No Advance Directives Information Provided: Yes Do you have a plan to hurt others: No Plan service: No Current occupational status: employed Cognitive needs: No Hearing needs: No Vision needs: Yes (Glasses) Physical Exam Vital Signs: Vital Signs: Last Vital Signs Temp 97.0 F 06/10/24 09:56 Pulse 105 H 06/10/24 09:56 Resp 18 06/10/24 09:56 BP 149/103 H 06/10/24 09:56 Pulse Ox 98 06/10/24 09:56 O2 Del Method Room Air 06/10/24 09:56 BMI result Body Mass Index 37.1 Appearance: Alert. Oriented X3. No acute distress. Eating a sandwhich, dry cough, no resp distress Eyes: Pupils equal, round and reactive to light. ENT: Pharynx MMM mild erythema L tonsil no swelling or exudates. Neck: Normal inspection. Neck supple. CVS: Normal heart rate and rhythm. Pulses normal. Respiratory: No respiratory distress. Breath sounds normal. Abdomen: Soft and non-tender. Skin: Skin warm and dry. Normal skin color. Extremities: No lower extremity edema. Neuro: Oriented X 3. No motor deficit. No sensory deficit. CN2-12 intact Medical Decision Making Medical Decision Making [place] Narrative: 44 yo male with PMH of CKD, HTN, kidney stones, situs inversus totalis who c/o URI symptoms for 2 weeks that are not getting better he then c/o cough giving him a headache and feeling dizzy at times. Headache has been going on for a few days. He has a steady gait, no ataxia, looks not toxic, eating in ED after c/o being hungry and not eating today. He did state on DC he felt dizzy and I tried to get him to stay for further assessments but he refused. At this time I suspect he has bronchitis given the duration - steroids, INH, anti tussive, abx given 2 weeks. He was given precautions to return. Differential Diagnosis Differential Diagnoses: The differential diagnosis associated with the presentation includes URI, viral syndrome, bronchitis, dehydration Admission/Observation Consideration of admission/observation: Escalation of care including admission/observation considered patient states he was feeling a little dizzy after eating I asked him to stay in the chair and wait so we could reassess him but then he stated he was good boss and wanted to go home. He ended up walking out with no issue but he was offered longer observation after he stated he felt dizzy Lab Data [place] Lab Attestation statement: I reviewed the patient's lab results. 06/10/24 12:00 06/10/24 12:00 Labs: Lab Results 06/10/24 Range/Units 12:00 WBC 14.4 H (4.8-10.8) X10*3/uL RBC 5.76 (4.60-5.80) X10*6/uL Hgb 15.1 (14.0-18.0) g/dl Hct 46.5 (42.0-52.0) % MCV 80.7 (80.0-98.0) fL MCH 26.2 L (27.0-33.0) pg MCHC 32.5 (31.0-36.0) g/dl RDW 13.4 (11.0-16.0) % Plt Count 199 (160-400) X10*3/uL MPV 9.7 (9.4-12.4) fL Immature Gran % (Auto) 0.5 H (0.0-0.4) % Neut % (Auto) 82.5 H (45-73) % Lymph % (Auto) 11.8 L (20-40) % [place] % (Auto) 4.2 (2-11) % Eos % (Auto) 0.4 (0-4) % Baso % (Auto) 0.6 (0-2) % Lymph # (Auto) 1.7 (1.2-4.9) X10*3/uL [place] # (Auto) 0.6 (0.1-1.2) X10*3/uL Eos # (Auto) 0.1 (0.0-0.4) X10*3/uL Baso # (Auto) 0.1 (0.0-0.2) X10*3/uL Abs Immat Gran (auto) 0.07 H (0.00-0.03) X10*3/uL Absolute Neuts (auto) 11.9 H (2.0-8.3) x10*3/uL Absolute Nucleated RBC 0.000 (0.0-0.012) X10*3/uL Nucleated RBC % (auto) 0.0 (0.0-0.2) /100WBC Sodium 142 (135-145) mmol/L Potassium 4.0 (3.3-5.1) mmol/L Chloride 108 (96-108) mmol/L Carbon Dioxide 26 (22-29) mmol/L Anion Gap 12 (12-20) BUN 10 (9-16) mg/dL Creatinine 1.22 (0.5-1.4) mg/dL Estim Creat Clear Calc 89.2 Estimated GFR > 60 Random Glucose 88 (60-115) mg/dL Calcium 9.5 (8.4-10.2) mg/dL Total Bilirubin 0.8 (0.0-1.0) mg/dL AST 24 (5-37) U/L ALT 15 (0-40) U/L Alkaline Phosphatase 131 H (39-117) U/L Total Protein 8.0 (6.5-8.0) g/dL Albumin 4.4 (3.5-5.0) g/dL Influenza Type A (PCR) NEGATIVE (Negative) Influenza Type B (PCR) NEGATIVE (Negative) RSV RNA Qual (PCR) NEGATIVE (Negative) SARS-CoV-2 RNA (RT-PCR) NEGATIVE (Negative) Independent Interpretation I performed an independent interpretation of an: Plain X-Ray (normal ) Radiology Impression Discussion of test interpretation with radiology: I have reviewed the radiologist's reading. External Record Review External record reviewed: Outpatient record Prescription Management I considered prescription management with: Pain Medication, Antibiotic and Other Discharge Plan Discharge Clinical Impression: Bronchitis Patient Disposition: Home, Self-Care Instructions: Acute Bronchitis (ED) Additional Instructions: negative for flu, RSV, COVID labs reassuring chest xray no pneumonia start all medications today return for any worsening symptoms or concerns rest and stay hydrated Prescriptions: New prednisone 20 mg tablet 40 mg PO DAILY 5 Days Qty: 10 0RF albuterol sulfate 90 mcg/actuation HFA aerosol inhaler 2 puff inhalation QID PRN (Reason: shortness of breath or wheezing) Qty: 6.7 0RF ondansetron 4 mg tablet,disintegrating 4 mg PO Q8H PRN (Reason: nausea and vomiting) Qty: 20 0RF amoxicillin-pot clavulanate 875-125 mg tablet 1 tab PO BID Qty: 14 0RF codeine-guaifenesin 7.5-225 mg/5 mL liquid 5 ml PO Q6H PRN (Reason: cough) Qty: 160 0RF No Action ciprofloxacin HCl 250 mg tablet 250 mg PO BID Qty: 14 0RF amlodipine [Norvasc] 10 mg tablet 10 mg PO DAILY Qty: 90 1RF cyanocobalamin (vitamin B-12) 1,000 mcg capsule 1,000 mcg PO DAILY Qty: 30 3RF Stand Alone Forms: Work/School Release Discharge Date/Time: 06/10/24 13:48 Print Language: Liberian
== END 2024-06-10 13:48 | disposition home or self-care (01) ==
PROVIDERS: Emergency Provider Emergency Medicine; PCP Internal Medicine
DX: J40 Bronchitis, not specified as acute or chronic (principal); R05.9 Cough, unspecified; R51.9 Headache, unspecified; R42 Dizziness and giddiness; R11.0 Nausea; I12.9 Hypertensive chronic kidney disease with stage 1 through stage 4 chronic kidney disease, or unspecified chronic kidney disease; N18.9 Chronic kidney disease, unspecified; Z03.818 Encounter for observation for suspected exposure to other biological agents ruled out
CPT/HCPCS: 0241U; 71046; 80053; 85025; 99281; 99283

== ENCOUNTER → 2024-06-10 10:15 | Outpatient (BNV) | payer SELFPAY | PROVIDERS: PCP Internal Medicine; Visit Provider Radiology Diagnostic Radiology | DX: R05.9 Cough, unspecified (principal) | CPT/HCPCS: 71046 ==

== ENCOUNTER 2024-07-16 08:36 | Outpatient (AMB) | payer BC, SELFPAY ==
--- NOTE | 2024-07-16 08:45 | MHC.PC.OV ---
Vital Signs 07/16/24 08:46 Height 5 ft 6 in Weight 216 lb BMI 34.9 BP 122/78 Blood Pressure Location Lt brachial Position Sitting Pulse 78 Pulse Source Pulse Oximeter Pulse Oximetry (%) 98 Oxygen Delivery Method Room Air Intake Visit Reasons: 6 Month F/U Allergies No Known Allergies [No Known Allergies*] Allergy (Verified 07/16/24 08:46) Tobacco use date assessed: 01/16/24 Dental Screening Dental Screen Date: 07/16/24 Did you have a dental visit in the last 12 months?: No Did you have a dental problem in the last 6 months where you did not have access to dental care?: No Was dental information given to patient?: No HPI 6 Month F/U HPI Details Noted 16 lb weight loss!!! [facility] Medical History (Updated 07/16/24 @ 08:48 by Kelechi Neves MD) Chronic headaches Elevated liver function tests COVID-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 Abnormal cystoscopy Chronic kidney disease History of renal stone Family History Mother Diabetes Hypertension Social History Household Members: None Housing: House Do you presently have visiting nurse or other home services: No Alcohol intake: never Patient Tobacco Use Status: Never used Tobacco Tobacco use type: Cigarette e-Cigarette/Vaping Use: Never Used Second Hand Smoke Exposure: No service: No Current occupational status: employed Cognitive needs: No Hearing needs: No Vision needs: Yes (Glasses) Questionnaire PHQ-9 Over the last 2 weeks, how often have you been bothered by any of the following problems? 1. Little interest or pleasure in doing things: not at all 2. Feeling down, depressed, or hopeless: not at all 3. Trouble falling or staying asleep, or sleeping too much: not at all 4. Feeling tired or having little energy: not at all 5. Poor appetite or overeating: not at all 6. Feeling bad about yourself - or that you are a failure or have let yourself or your family down: not at all 7. Trouble concentrating on things, such as reading the newspaper or watching television: not at all 8. Moving or speaking so slowly that other people could have noticed. Or the opposite - being so fidgety or restless that you have been moving around a lot more than usual: not at all 9. Thoughts that you would be better off or of hurting yourself in some way: not at all Total score: 0 Depression Screening Interpretation: Negative Depression Screening Done: Yes 62692 - PHQ-9 Billing: Yes Source: Developed by Drs. Grant Taylor, Belinda Drummond, Scotty Duckworth and colleagues, with an educational hudson from [email or web address]. Thrive Questionnaire Date Thrive assessed: 07/16/24 AUDIT C Alcohol Use Questionnaire (AUDIT-C) 1. How often do you have a drink containing alcohol?: Never Total Score: 0 LYSSA-7 AMB Questionnaire LYSSA-7 Date LYSSA - 7 assessed: 07/16/24 Feeling nervous, anxious, or on edge: 0 = Not at all Not being able to stop or control worryin = Not at all Worrying too much about different things: 0 = Not at all Trouble relaxin = Not at all Being so restless that it is hard to sit still: 0 = Not at all Becoming easily annoyed or irritable: 0 = Not at all Feeling afraid as if something awful might happen: 0 = Not at all Total LYSSA-7 score (0-4 normal; 5-9 mild; 10-14 moderate; 15-21 severe): 0 Source: Developed by Drs. Grant Taylor, Belinda Drummond, Scotty Duckworth and colleagues, with an educational hudson from [email or web address]. Physical exam (Primary Care) Vital Signs: Last Vital Signs Pulse 78 07/16/24 08:46 BP 122/78 07/16/24 08:46 Pulse Ox 98 07/16/24 08:46 Oxygen Delivery Method Room Air 07/16/24 08:46 BMI result Body Mass Index 34.9 Tobacco/Smoking Status: Tobacco use Status Tobacco use date assessed 01/16/24 07/16/24 08:47 Patient Tobacco Use Status Never used Tobacco 07/16/24 08:47 Tobacco use type Cigarette 07/16/24 08:47 e-Cigarette/Vaping Use Never Used 07/16/24 08:47 PHQ-9: PHQ-9 Score PHQ-9: Total score 0 07/16/24 09:03 Depression Screening Interpretation: Negative Thrive Assessment: Date of Thrive Assessment Date Thrive assessed 07/16/24 07/16/24 08:47 Const General: alert; No acute distress Eyes Conjunctivae: conjunctivae normal Resp Auscultation: clear to auscultation bilaterally Cardio Rate: regular rate Rhythm: regular rhythm GI Inspection: Yes normal to inspection Extrem General: Yes normal to inspection and No edema Office Procedures Flu Questionnaire Does the patient have a severe egg allergy?: No Does the patient have severe life threatening allergies?: No Does the patient have a fever or illness today?: No Has the patient ever had Guillain-[place] Syndrome?: No Has the patient ever had any past reaction to a flu shot?: No Immunizations Fluarix Triv [id number] (PF) 45 mcg (15 mcg x 3)/0.5 mL IM syringe Performing Provider: Kelechi Neves MD [place] [facility] [place] [facility] Administered by: Valarie Farnsworth CMA on 07/16/24 09:04 Dose Route Admin Location Dispensed Lot Number Expiration Date NDC [employer] 0.5 mL IM Left Deltoid 0.5 mL [id number] 11/15/24 [id number] VIS Given Date VIS Provided VIS Publication Date 07/16/24 Single Vaccine 20 Eligibility Eligibility Date Funding Source Not [facility] Eligible 07/16/24 Private Coding Level of Care Code Est Pt Level 4 (83063) Diagnoses Obesity (BMI 30-39.9) E66.9 Atrophy of right kidney N26.1 Impaired glucose tolerance R73.02 Hepatic steatosis K76.0 Renal calculi N20.0 Hypertension I10 Hypertension type: primary hypertension Additional Codes PHQ-9 - 46753 - PHQ-9 Billing: Yes ([id number]) Assessment & Plan Assessment & Plan (1) Obesity (BMI 30-39.9): Code(s): E66.9 - Obesity, unspecified Category: Medical Plan: Diet And exercise (2) Atrophy of right kidney: Code(s): N26.1 - Atrophy of kidney (terminal) Category: Medical Plan: Patient follows up with Nephrology continuing to control blood pressure avoid NSAIDs low-sodium diet keep well hydrated. (3) Impaired glucose tolerance: Code(s): R73.02 - Impaired glucose tolerance (oral) Category: Medical Plan: Decrease the amount of carbohydrate intake, pasta, bread, rice and potatoes are all sugar and that is aside from all the sweet stuff, remember that fruits are good but they are Sweet also. (4) Hepatic steatosis: Code(s): K76.0 - Fatty (change of) liver, not elsewhere classified Category: Medical Plan: Low-fat diet and exercise (5) Renal calculi: Code(s): N20.0 - Calculus of kidney Category: Medical Plan: Keep well hydrated (6) Hypertension: Code(s): I10 - Essential (primary) hypertension Category: Medical Qualifiers: Hypertension type: primary hypertension Qualified Code(s): I10 - Essential (primary) hypertension Plan: Continue with blood pressure medication. Decrease salt intake and exercise patient is on amlodipine 10 mg once a day Plan History of Present Illness The patient is a 44-year-old male presenting for follow-up care for a collection of chronic medical conditions, primarily essential hypertension and chronic kidney disease. Management strategies including the use of amlodipine are already in place for blood pressure control. There is history of fatty liver disease and nephrolithiasis, with current follow-up for right renal hydronephrosis under urologic care. The patient?s recent bronchitis episode was managed with prednisone and albuterol inhaler, and during follow-up laboratory evaluations, he was noted to have normal renal function and normal liver function. Historical results from his last cholesterol test indicated a LDL of 141, and blood tests showed a B12 deficiency. His ongoing management aims to mitigate progression of kidney dysfunction with dietary measures and continued pharmaceutical therapy. Health Maintenance - Low sodium diet recommended. - Increase fluid intake advised. - Continue amlodipine for blood pressure management. Social History Review of Systems - Respiratory: Reports prior cough treated with prednisone and albuterol inhaler. Physical Exam Results - Labs: May 2024 results show normal platelet count, normal electrolytes, preserved renal function, normal blood sugar levels, and normal liver function. July 2023 cholesterol test showed LDL at 141, with B12 deficiency noted. Plan Management of the patient's essential hypertension continues with amlodipine and regular blood pressure monitoring. Dietary measures, including low sodium intake and adequate hydration, are necessary for managing both hypertension and chronic kidney disease. The existing treatment plan with nephrology and urology, including medication compliance and nephrotoxic avoidance, remains pertinent. Surveillance of liver function, considering the fatty liver disease, will continue, alongside monitoring previous bronchitis recovery. Addressing the deficiency involves dietary adjustments or supplementation if needed. Patient was informed and verbally consented to the use of an ambient scribe for clinic note documentation during this visit. Discussion Notes During the visit, the patient and I discussed the ongoing management of his essential hypertension, chronic kidney disease, and associated health issues. I reiterated the importance of dietary modifications, specifically low sodium intake, and maintaining hydration to control blood pressure and kidney health. For his bronchitis, now resolved, I discussed preventive strategies to avoid respiratory infections. We reviewed his recent lab results, including the need to address his B12 deficiency, potentially through supplementation. The need for ongoing nephrology and urology follow-up was articulated, emphasizing avoidance of nephrotoxic medications. The patient expressed understanding and agreement with the management plan. Patient Instructions - Continue taking amlodipine as prescribed. - Adhere to a low sodium diet. - Increase fluid intake as previously advised. - Follow up with nephrology and urology as instructed. - Monitor for any respiratory symptoms; use inhaler if necessary. - Address B12 deficiency through dietary modifications or recommended supplements. Orders: Orders Thyroid Stimulating Hormone Today I10 - Essential (primary) hypertension Free T4 (Free Thyroxine) Today I10 - Essential (primary) hypertension Influenza [id number] Immunization Today Z23 - Encounter for immunization Lipid Panel Today E78.00 - Pure hypercholesterolemia, unspecified, I10 - Essential (primary) hypertension Medications: New blood pressure monitor (Blood Pressure Kit) As directed 1 ea 0RF I10 - Essential (primary) hypertension Refilled amlodipine (Norvasc) 10 mg PO DAILY 90 tabs 1RF N18.9 - Chronic kidney disease, unspecified Discontinued codeine-guaifenesin 7.5-225 mg/5 mL Discontinued Reason: Doctor's Order 5 mL PO Q6H PRN 160 mL 0RF cough amoxicillin-pot clavulanate 875-125 mg Discontinued Reason: Duplicate 1 tab PO BID 14 tabs 0RF
[2024-07-16 08:46] VITALS: BP 122/78; PULSE 78; O2SAT 98; BMI 34.9
== END 2024-07-16 09:08 | disposition home or self-care (01) ==
PROVIDERS: PCP Internal Medicine; Visit Provider Internal Medicine
DX: R73.02 Impaired glucose tolerance (oral) (principal); E66.9 Obesity, unspecified; Z68.34 Body mass index [BMI] 34.0-34.9, adult; N26.1 Atrophy of kidney (terminal); K76.0 Fatty (change of) liver, not elsewhere classified; N20.0 Calculus of kidney; I10 Essential (primary) hypertension; Z23 Encounter for immunization

== ENCOUNTER → 2024-07-16 08:36 | Outpatient (BNVA) | payer SELFPAY | PROVIDERS: PCP Internal Medicine; Visit Provider Internal Medicine | DX: E66.9 Obesity, unspecified (principal); Z68.34 Body mass index [BMI] 34.0-34.9, adult; N26.1 Atrophy of kidney (terminal); Z23 Encounter for immunization; R73.02 Impaired glucose tolerance (oral); I12.9 Hypertensive chronic kidney disease with stage 1 through stage 4 chronic kidney disease, or unspecified chronic kidney disease; N18.9 Chronic kidney disease, unspecified; K76.0 Fatty (change of) liver, not elsewhere classified; N20.0 Calculus of kidney; Z79.899 Other long term (current) drug therapy | CPT/HCPCS: 90471; 90656; 96127 ==

== ENCOUNTER 2024-07-19 10:52 | Outpatient (REF) | payer BC, SELFPAY ==
[2024-07-19 11:29] LABS: MANUAL DIFF FLAG NO
[2024-07-19 11:55] LABS: Basophils Absolute Auto 0.1 X10*3/uL (0.0-0.2); Basophils Percent Auto 0.5 % (0-2); Eosinophils Absolute Auto 0.1 X10*3/uL (0.0-0.4); Eosinophils Percent Auto 0.7 % (0-4); Hematocrit 48.1 % (42.0-52.0); Hemoglobin 15.8 g/dl (14.0-18.0); Imm Gran Abs Auto 0.04 X10*3/uL (0.00-0.03); Imm Gran Pct Auto 0.4 % (0.0-0.4); Lymphocytes Absolute Auto 2.6 X10*3/uL (1.2-4.9); Lymphocytes Percent Auto 25.6 % (20-40); Mean Corpuscular HGB Conc 32.8 g/dl (31.0-36.0); Mean Corpuscular Hemoglobin 26.4 pg (27.0-33.0); Mean Corpuscular Volume 80.3 fL (80.0-98.0); Mean Platelet Volume 10.9 fL (9.4-12.4); Monocytes Absolute Auto 0.6 X10*3/uL (0.1-1.2); Monocytes Percent Auto 5.5 % (2-11); Neutrophils Absolute Auto 6.9 x10*3/uL (2.0-8.3); Neutrophils Percent Auto 67.3 % (45-73); Platelet Count 207 X10*3/uL (160-400); Red Blood Count 5.99 X10*6/uL (4.60-5.80); Red Cell Distribution Width 13.1 % (11.0-16.0); White Blood Count 10.2 X10*3/uL (4.8-10.8)
[2024-07-19 11:58] LABS: Appearance Urine Clear; Color Urine Yellow; Glucose Urine UA Negative (Negative); Leukocyte Esterase Urine Negative (Negative); Nitrite Urine Negative (Negative); PH 7.5 (5.0-9.0); Specific Gravity - Urine 1.015 (1.005-1.025); UMIC TRIGGER UACC YES; Urine Blood Trace (Negative); Urine Ketones Negative (Negative); Urine Protein Trace mg/dL (Neg-Trace)
[2024-07-19 12:02] LABS: Bacteria Urine None Seen (None Seen); Hyaline Casts Urine 0-2 /LPF (0-2); WBC Urine 0-5 /HPF (0-5)
[2024-07-19 12:10] LABS: Estimated Average Glucose 120 mg/dL; Hemoglobin A1C 159.2997 umol/L; Hemoglobin A1c % 5.8 % (<6.0); Total Hemoglobin (HGBA1C) 3968.7936 umol/L
[2024-07-19 12:38] LABS: Alanine Aminotransferase 23 U/L (0-40); Albumin Level 4.3 g/dL (3.5-5.0); Alkaline Phosphatase 169 U/L (39-117); Anion Gap 15 (12-20); Aspartate Amino Transferase 22 U/L (5-37); Bilirubin Total 0.7 mg/dL (0.0-1.0); Blood Urea Nitrogen 8 mg/dL (9-16); Calcium 9.3 mg/dL (8.4-10.2); Carbon Dioxide 25 mmol/L (22-29); Chloride 107 mmol/L (96-108); Cholesterol 188 mg/dL (<200); Estimated Glomerular Filt Rate > 60; Glucose Random 85 mg/dL (60-115); HDL Cholesterol 50 mg/dL (>40); LDL Cholesterol Calculated 118 mg/dL (<100); Potassium 3.5 mmol/L (3.3-5.1); Sodium 143 mmol/L (135-145); Total Protein 7.9 g/dL (6.5-8.0); Triglycerides 102 mg/dL (<150)
[2024-07-19 12:52] LABS: Thyroid Stimulating Hormone 2.29 uIU/mL (0.32-4.0)
[2024-07-19 13:10] LABS: Folate 8.7 ng/mL (> or = 4.0); Vitamin B12 278 pg/mL (200-900)
== END 2024-07-19 10:53 | disposition home or self-care (01) ==
LOC: HO.LAB 10:52
PROVIDERS: PCP Internal Medicine; Visit Provider Internal Medicine
DX: N18.9 Chronic kidney disease, unspecified (principal); I10 Essential (primary) hypertension; E78.00 Pure hypercholesterolemia, unspecified
CPT/HCPCS: 36415; 80053; 80061; 81001; 81003; 82607; 82746; 83036; 84439; 84443; 85025

== ENCOUNTER 2024-09-17 18:14 | Emergency (ER) | payer BC, SELFPAY ==
--- NOTE | 2024-09-17 | ECG_ITS ---
Test Reason : SYNCOPE Blood Pressure : */* mmHG Vent. Rate : 71 BPM Atrial Rate : 71 BPM P-R Int : 128 ms QRS Dur : 88 ms QT Int : 376 ms P-R-T Axes : * 93 87 degrees QTcB Int : 408 ms Normal sinus rhythm with sinus arrhythmia Anterolateral infarct , age undetermined Abnormal ECG When compared with ECG of 23-Mar-2023 18:22, QRS axis Shifted left Anterior infarct is now Present Anterolateral infarct is now Present Referred By: Eladia Sylvester Electronically Signed By: Will Hinton
[2024-09-17 18:33] VITALS: BP 158/111; PULSE 118; RESP 22; TEMP 37.2; O2SAT 100; BMI 25.8
[2024-09-17 19:02] VITALS: BP 139/91; PULSE 74
[2024-09-17 19:03] VITALS: BP 143/98; BP 149/94; PULSE 79; PULSE 89
--- NOTE | 2024-09-17 19:04 | ED.SYNCOPE ---
HPI - Syncope General Chief Complaint: Syncope Stated Complaint: syncope Time Seen by Provider: 09/17/24 18:28 Source: patient Mode of arrival: wheelchair Limitations: no limitations History of Present Illness ED Provider: Dr. Eladia Sylvester HPI narrative: Patient comes to the emergency room via stretcher from the ICU. Patient was visiting his mother in the ICU who unfortunately just . Patient states that he did not pass out, patient states that he lowered himself to the ground, patient was found crying. Rapid response was called. Patient did not hit his head and did not lose consciousness. Initially when patient arrived, patient crying uncontrollably. Eventually he was able to calm down and said that he has no chest pain, no shortness of breath, he did not lose consciousness. No pain, no trauma. Related Data Previous Rx's ?Medication ?Instructions ?Recorded cyanocobalamin (vitamin B-12) 1,000 mcg PO DAILY #30 caps 01/16/24 1,000 mcg capsule albuterol sulfate 90 mcg/actuation 2 puff inhalation QID PRN 06/10/24 aerosol inhaler shortness of breath or wheezing #6.7 grams ondansetron 4 mg disintegrating 4 mg PO Q8H PRN nausea and 06/10/24 tablet vomiting #20 tabs amlodipine 10 mg tablet (Norvasc) 10 mg PO DAILY #90 tabs 07/16/24 blood pressure monitor (Blood #1 ea 07/16/24 Pressure Kit) Allergies Allergy/AdvReac Type Severity Reaction Status Date / Time No Known Allergies Allergy Verified 09/17/24 18:35 [No Known Allergies*] Review of Systems Review of Systems: Constitutional : No Weight loss, No Fever, No Chills, No Night Sweats, No Fatigue, No Malaise ENT/Mouth : No Hearing loss, No Ear Pain, No Nasal Congestion, No Sinus Pain, No Hoarseness, No sore throat, No Rhinorrhea, No Swallowing Difficulty Eyes: No Eye Pain, No Swelling, No Redness, No Foreign Body, No Discharge, No Vision Changes Cardiovascular : No Chest Pain, No SOB, No Dyspnea on Exertion, No Orthopnea, No Edema, No Palpitations Respiratory : No Cough, No Sputum, No Wheezing, No Smoke Exposure, No Dyspnea Gastrointestinal : No Nausea, No Vomiting, No Diarrhea, No Constipation, No abdominal Pain, No Hematochezia, No Melena Genitourinary : no irregular bleeding, No Dysuria, No Urinary Frequency, No Hematuria, No Urinary Incontinence, No Urgency, No Flank Pain, No Urinary Flow Changes, No Hesitancy Musculoskeletal : No joint pain, No Myalgias, No Joint Swelling Skin : No Skin Lesions, No rash Neuro : No Weakness, No Numbness, No Paresthesias, No Loss of Consciousness, No Dizziness, No Headache Psych : Grieving Heme/Lymph: No Bruising, No Bleeding,No Lymphadenopathy Endocrine : No Polyuria, No Polydipsia, No Temperature Intolerance [facility] Past Medical History Medical History Chronic headaches Elevated liver function tests COVID-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 Abnormal cystoscopy Chronic kidney disease History of renal stone Family History Family History Mother Diabetes Hypertension Social History Social History Household Members: None Housing: House Do you presently have visiting nurse or other home services: No Alcohol intake: never Patient Tobacco Use Status: Never used Tobacco Tobacco use type: Cigarette e-Cigarette/Vaping Use: Never Used Second Hand Smoke Exposure: No service: No Current occupational status: employed Cognitive needs: No Hearing needs: No Vision needs: Yes (Glasses) Physical Exam Vital Signs: Vital Signs: Last Vital Signs Temp 99 F 09/17/24 18:33 Pulse 89 09/17/24 19:03 Resp 22 H 09/17/24 18:33 BP 149/94 H 09/17/24 19:03 Pulse Ox 100 09/17/24 18:33 O2 Del Method Room Air 09/17/24 18:33 BMI result Body Mass Index 25.8 Const: Other: Appearance: Alert. Oriented X3. No acute distress. Eyes: Pupils equal, round and reactive to light. ENT: Pharynx normal. Neck: Normal inspection. Neck supple. No lymph nodes noted. No crepitus CVS: Normal heart rate and rhythm. Pulses normal. Normal S1 and S2 Respiratory: No respiratory distress. Breath sounds normal. No Wheezing. No rales Abdomen: Soft and nontender. No rigidity. No distention. Skin: Skin warm and dry. Normal skin color. Normal skin turgor. Extremities: No lower extremity edema. No Lacerations. No Rash Neuro: Oriented X 3. No motor deficit. No sensory deficit. Moving all extremities. No slurred speech. CN 2 through 12 grossly intact Psych: calm, cooperative, tearful Medical Decision Making Medical Decision Making MDM Narrative: My interpretation of EKG: Normal sinus rhythm, heart rate 71, no ST segment depression or elevation, no T-wave inversion, QTC 408 Orthostatic vitals negative Patient declining any blood work, patient states that he feels better. Patient declined passing out. Patient states that he lower his up to the ground. Patient grieving, denies SI or HI. Discharge Plan Discharge Clinical Impression: Vasovagal near-syncope Patient Disposition: Home, Self-Care Instructions: Near Syncope (ED) Additional Instructions: Please follow-up with your primary care physician tomorrow. If you have any worsening or new symptoms, please return to the emergency room or call 911 Prescriptions: No Action albuterol sulfate 90 mcg/actuation HFA aerosol inhaler 2 puff inhalation QID PRN (Reason: shortness of breath or wheezing) Qty: 6.7 0RF ondansetron 4 mg tablet,disintegrating 4 mg PO Q8H PRN (Reason: nausea and vomiting) Qty: 20 0RF cyanocobalamin (vitamin B-12) 1,000 mcg capsule 1,000 mcg PO DAILY Qty: 30 3RF (DME) blood pressure monitor [Blood Pressure Kit] Kit See Rx Instructions .ROUTE .MEDSUPPLY Qty: 1 0RF Rx Instructions: As directed amlodipine [Norvasc] 10 mg tablet 10 mg PO DAILY Qty: 90 1RF Print Language: Syriac
[2024-09-17 19:27] VITALS: BP 149/94; PULSE 89; RESP 20; TEMP 36.6; O2SAT 97
== END 2024-09-17 19:19 | disposition home or self-care (01) ==
LOC: HO.ED 19:11
PROVIDERS: Emergency Provider Emergency Medicine
DX: R55 Syncope and collapse (principal)
CPT/HCPCS: 93005; 99283; 99284

== ENCOUNTER → 2024-09-17 18:32 | Outpatient (BNV) | payer BC, SELFPAY | PROVIDERS: Emergency Provider Emergency Medicine; Visit Provider Internal Medicine Cardiovascular Disease | DX: I49.9 Cardiac arrhythmia, unspecified (principal) | CPT/HCPCS: 93010 ==

== ENCOUNTER 2025-02-04 09:02 | Outpatient (REF) | payer OTHER, SELFPAY ==
[2025-02-04 10:15] LABS: Anion Gap 10 (12-20); Blood Urea Nitrogen 16 mg/dL (9-16); Calcium 9.4 mg/dL (8.4-10.2); Carbon Dioxide 26 mmol/L (22-29); Chloride 109 mmol/L (96-108); Estimated Glomerular Filt Rate > 60; Potassium 3.6 mmol/L (3.3-5.1); Sodium 141 mmol/L (135-145); Uric Acid 6.5 mg/dL (3.4-7.0)
== END 2025-02-04 09:03 | disposition home or self-care (01) ==
LOC: HO.LAB 09:02
PROVIDERS: PCP Internal Medicine; Visit Provider Internal Medicine Hypertension Specialist
DX: N13.30 Unspecified hydronephrosis (principal); N20.0 Calculus of kidney
CPT/HCPCS: 36415; 80048; 84550

== ENCOUNTER 2025-02-05 10:45 | Outpatient (REF) | payer OTHER, SELFPAY ==
[2025-02-05 13:14] LABS: Creatinine, mg/dL 90.05; Sodium, 24 Hr Urine 116.0 mmol/L
[2025-02-05 13:20] LABS: Creatinine, mg/dL 88.07
[2025-02-05 13:31] LABS: Creatinine, mg/dL 89.57; Uric Acid, mg/dL 28.1 mg/dL
[2025-02-05 14:19] LABS: Total Volume 24 Hour Urine 1900 mL
[2025-02-05 14:20] LABS: Total Volume 24 Hour Urine 1900 mL
[2025-02-07 21:13] LABS: Calcium/Creatinine Ratio 67 mg/g creat (30-210); Creatinine 24Hr Urine 1.73 g/24 h (0.50-2.15)
[2025-02-09 05:54] LABS: 24hr Urine Total Volume 1900 mL; Oxalic Acid 24 Urine 34.1 mg/24 h (3.6-38.0)
[2025-02-09 18:59] LABS: 24hr Urine Total Volume 1900 mL; Citric Acid, 24hr Urine 513 mg/24 h (100-1300); Citric Acid/Creat Ratio 24U 283 mg/g creat (60-660); Creatinine, 24U 1.81 g/24 h (0.50-2.15)
== END 2025-02-05 10:46 | disposition home or self-care (01) ==
LOC: HO.LNP 10:45
PROVIDERS: Visit Provider Internal Medicine Hypertension Specialist
DX: N13.2 Hydronephrosis with renal and ureteral calculous obstruction (principal)
CPT/HCPCS: 82340; 82507; 82570; 83945; 84300; 84560

== ENCOUNTER 2025-02-08 09:28 | Outpatient (AMB) | payer OTHER, SELFPAY ==
--- NOTE | 2025-02-08 09:31 | HO.NEPHOV_ITS ---
Vital Signs 02/08/25 09:32 Height 5 ft 6 in Weight 228 lb BMI 36.8 BP 140/98 H Blood Pressure Location Lt brachial Position Sitting Pulse 65 Pulse Source Pulse Oximeter Pulse Oximetry (%) 98 Oxygen Delivery Method Room Air Intake Visit Reasons: CKD Pick Up Operator Required: No Accompanied by: Self / Same As Patient Allergies No Known Allergies (No Known Allergies*) Allergy (Verified 02/08/25 09:34) Medication List - Last Reconciled 02/08/25 by Alexander Loera MD albuterol sulfate 90 mcg/actuation 2 puffs inhalation QID PRN amlodipine (Norvasc) 10 mg PO DAILY blood pressure monitor (Blood Pressure Kit) As directed cyanocobalamin (vitamin B-12) 1,000 mcg PO DAILY ondansetron 4 mg PO Q8H PRN HPI Comments Details: 43-year-old man with a history of multiple renal stones. Back in 2020 he had severe right-sided hydronephrosis. He underwent lithotripsy. Has had a follow-up ultrasonogram last week and results are pending. Kristian has a history of hypertension. Amlodipine 10 mg was added about a week ago. Serum creatinine has been fluctuating between 1.31.5 mg/dL and hence this ref erral. He has history of chronic headaches. He takes ibuprofen about once a week. No history of abuse of any NSAIDs. He works in a [employer]. He denies any smoking or alcohol abuse at present. 02/08/25 History of Present Illness - The patient is a 44-year-old male presenting with nephrolithiasis and associated pain. - Nephrolithiasis with back and rib pain, no stone passage. - August 2023 imaging showed obstruction, managed by urologist. - Blood work stable, kidneys stable, advised to reduce salt intake. - Family history: Mother at 63 due to fall and heart attack. 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 Abnormal cystoscopy Chronic kidney disease History of renal stone Family History Mother Diabetes Hypertension Social History Household Members: None Housing: House Do you presently have visiting nurse or other home services: No Alcohol intake: never Patient Tobacco Use Status: Never used Tobacco Tobacco use type: Cigarette e-Cigarette/Vaping Use: Never Used Second Hand Smoke Exposure: No service: No Current occupational status: employed Cognitive needs: No Hearing needs: No Vision needs: Yes (Glasses) Physical Exam Vital Signs: Last Vital Signs Pulse 65 02/08/25 09:32 BP 140/98 H 02/08/25 09:32 Pulse Ox 98 02/08/25 09:32 Oxygen Delivery Method Room Air 02/08/25 09:32 BMI result Body Mass Index 36.8 Results Reviewed Nephrology Results: Hgb, (14.0-18.0) 15.8 g/dl 07/19/24 WBC, (4.8-10.8) 10.2 X10*3/uL 07/19/24 Plt Count, (160-400) 207 X10*3/uL 07/19/24 Sodium, (135-145) 141 mmol/L 02/04/25 Potassium, (3.3-5.1) 3.6 mmol/L 02/04/25 Chloride, (96-108) 109 mmol/L H 02/04/25 Carbon Dioxide, (22-29) 26 mmol/L 02/04/25 BUN, (9-16) 16 mg/dL 02/04/25 Creatinine, (0.5-1.4) 1.27 mg/dL 02/04/25 Calcium, (8.4-10.2) 9.4 mg/dL 02/04/25 Urine Protein, (Neg-Trace) Trace mg/dL 07/19/24 Renal US 08/21/23 Assessment & Plan Assessment & Plan (1) Hydronephrosis of right kidney: Comment: Severe right hydro Code(s): N13.30 - Unspecified hydronephrosis Category: Medical Plan: Follow with urology s/p Lasix scan - Non functioning right kidney h/o atrophic right kidney/chronic hydro Follow up USG ordered (2) Chronic kidney disease: Comment: In the setting of hypertension obesity and multiple renal stones and right-sided hydronephrosis. Baseline creatinine is around 1.3-1.5 mg/dL. Code(s): N18.9 - Chronic kidney disease, unspecified Category: Medical Plan: Goal is to slow the progression of renal disease Maintain blood pressure less than 130/80 Continue to avoid nephrotoxic agents. Cr stable at 1.27 (3) Renal calculi: Code(s): N20.0 - Calculus of kidney Category: Medical Plan: 24 hour urine studies shows high NA and urinc acid Volume is OK Encouraged him to stay on a low-sodium diet Increase fluid intake to maintain a urine output of 2 L per 24 hours Repeat urine studies- showed elevated sodium NEed sto stay on low salt diet (4) Hypertension: Code(s): I10 - Essential (primary) hypertension Category: Medical Qualifiers: Hypertension type: primary hypertension Qualified Code(s): I10 - Essential (primary) hypertension Plan: Blood pressure acceptable Initial blood pressure was elevated but repeat was within normal range. Continue the amlodipine at the current dose Needs to stay on low-sodium diet Discussed weight loss and increasing physical activities. Orders: Orders US renal BI Today N20.0 - Calculus of kidney Coding Level of Care Code Est Pt Level 4 (33829) Diagnoses Hydronephrosis of right kidney N13.30 Chronic kidney disease N18.9 Renal calculi N20.0 Hypertension I10 Hypertension type: primary hypertension
[2025-02-08 09:32] VITALS: BP 140/98; PULSE 65; O2SAT 98; BMI 36.8
== END 2025-02-08 09:48 | disposition home or self-care (01) ==
LOC: HO.HKA 09:29
PROVIDERS: PCP Internal Medicine; Visit Provider Internal Medicine Hypertension Specialist
DX: N13.30 Unspecified hydronephrosis (principal); I12.9 Hypertensive chronic kidney disease with stage 1 through stage 4 chronic kidney disease, or unspecified chronic kidney disease; N18.9 Chronic kidney disease, unspecified; N20.0 Calculus of kidney
CPT/HCPCS: 99214

== ENCOUNTER 2025-02-25 09:43 | Outpatient (REF) | payer OTHER, SELFPAY ==
--- NOTE | ~2025-02-25 | US_ITS ---
CLINICAL HISTORY: N20.0 - Calculus of kidney US renal with Color Doppler Comparison: US/SR - US RENAL BI - 08/21/23 13:56 EDT Findings: Right kidney measures 22.0 cm length. Severe hydronephrosis has not improved. Marked cortical thinning. Normal color flow. No nephrolithiasis. Left kidney normal size and echotexture, 12.4 cm length. No hydronephrosis calculus or mass. Normal color flow. Impression: 1. Severe hydronephrosis on the right with marked cortical thinning. No evidence of obstructive uropathy on the left. This document has been electronically signed by: Jonah Schaeffer MD on 02/26/2025 10:04:52
== END 2025-02-25 09:44 | disposition home or self-care (01) ==
LOC: HO.US 09:43
PROVIDERS: PCP Internal Medicine; Visit Provider Internal Medicine Hypertension Specialist
DX: N20.0 Calculus of kidney (principal)
CPT/HCPCS: 76775

== ENCOUNTER → 2025-02-25 09:50 | Outpatient (BNV) | payer OTHER, SELFPAY | PROVIDERS: PCP Internal Medicine; Visit Provider Radiology Diagnostic Radiology | DX: N13.2 Hydronephrosis with renal and ureteral calculous obstruction (principal) | CPT/HCPCS: 76775 ==

== ENCOUNTER 2025-03-23 08:53 | Outpatient (AMB) | payer OTHER, SELFPAY ==
[2025-03-23 08:55] VITALS: BP 119/70; PULSE 62; TEMP 36.3; O2SAT 98; BMI 37.0
--- NOTE | 2025-03-23 08:55 | A.OFFPC_ITS ---
Vital Signs 03/23/25 08:55 Height 5 ft 6 in Weight 229 lb 2 oz BMI 37.0 BP 119/70 Blood Pressure Location Lt brachial Position Sitting Pulse 62 Pulse Source Pulse Oximeter Temp 97.3 F Temp Source Temporal Artery Scan Pulse Oximetry (%) 98 Oxygen Delivery Method Room Air Intake Visit Reasons: PE Allergies No Known Allergies (No Known Allergies*) Allergy (Verified 03/23/25 09:06) Medication List - Last Reconciled 03/23/25 by Erica Conklin PA-C albuterol sulfate 90 mcg/actuation 2 puffs inhalation QID PRN amlodipine (Norvasc) 10 mg PO DAILY blood pressure monitor (Blood Pressure Kit) As directed cyanocobalamin (vitamin B-12) 1,000 mcg PO DAILY ondansetron 4 mg PO Q8H PRN Tobacco use date assessed: 03/23/25 Dental Screening Dental Screen Date: 07/16/24 Did you have a dental visit in the last 12 months?: No Did you have a dental problem in the last 6 months where you did not have access to dental care?: No Was dental information given to patient?: No HPI PE HPI Details 45-year-old male with past medical histo ry of hypertension, chronic kidney disease, hepatic steatosis and impaired glucose tolerance last seen 06/[address] Neves coming in for annual exam. In review of the notes, patient was seen by Nephrology 01/2025 continue to follow with Urology with advised to maintain blood pressure less than 130/80 and avoid nephrotoxic agents and plan for renal ultrasound. Presenting for an annual physical exam. He reports occasional headaches, which are sometimes preceded by lightheadedness if he has not eaten for a few hours. He experiences nocturnal coughing and shortness of breath if he eats a heavy meal after 8 p.m., which has occasionally led to vomiting. 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 Abnormal cystoscopy Chronic kidney disease History of renal stone Family History Mother Diabetes Hypertension Social History Household Members: None Housing: House Do you presently have visiting nurse or other home services: No Alcohol intake: never Patient Tobacco Use Status: Never used Tobacco Tobacco use type: Cigarette e-Cigarette/Vaping Use: Never Used Second Hand Smoke Exposure: No service: No Current occupational status: employed Cognitive needs: No Hearing needs: No Vision needs: Yes (Glasses) Questionnaire PHQ-9 Over the last 2 weeks, how often have you been bothered by any of the following problems? 1. Little interest or pleasure in doing things: not at all 2. Feeling down, depressed, or hopeless: not at all 3. Trouble falling or staying asleep, or sleeping too much: not at all 4. Feeling tired or having little energy: not at all 5. Poor appetite or overeating: not at all 6. Feeling bad about yourself - or that you are a failure or have let yourself or your family down: not at all 7. Trouble concentrating on things, such as reading the newspaper or watching television: not at all 8. Moving or speaking so slowly that other people could have noticed. Or the opposite - being so fidgety or restless that you have been moving around a lot more than usual: not at all 9. Thoughts that you would be better off or of hurting yourself in some way: not at all Total score: 0 Depression Screening Interpretation: Negative Depression Screening Done: Yes 57328 - PHQ-9 Billing: Yes Source: Developed by Drs. Grant Taylor, Belinda Drummond, Scotty Duckworth and colleagues, with an educational hudson from [employer] Thrive Questionnaire Date Thrive assessed: 07/16/24 I am a: Patient What is your living situation today?: I have a steady place to live Within the past 12 months, did the food you bought not last and you didn't have the money to get more?: I choose not to answer this question Within the past 12 months, did you worry whether your food would run out before you got money to buy more?: I choose not to answer this question Do you have trouble paying for medicines?: No Do you have trouble getting transportation to medical appointments?: No Do you have trouble paying your heating and electricity bill?: No Do you have trouble taking care of your child, family member or friend?: No Do you have trouble with day-to-day activities such as bathing, preparing meals, shopping, managing finances, etc.?: No Are you currently unemployed and looking for a job?: No Are you interested in more education?: No Please select the resources that you would like help with: None Currently or been in a relationship where the following occur: I choose not to answer THRIVE Score: 0 AUDIT C Alcohol Use Questionnaire (AUDIT-C) 1. How often do you have a drink containing alcohol?: Never Total Score: 0 LYSSA-7 AMB Questionnaire LYSSA-7 Date LYSSA - 7 assessed: 07/16/24 Feeling nervous, anxious, or on edge: 0 = Not at all Not being able to stop or control worryin = Not at all Worrying too much about different things: 0 = Not at all Trouble relaxin = Not at all Being so restless that it is hard to sit still: 0 = Not at all Becoming easily annoyed or irritable: 0 = Not at all Feeling afraid as if something awful might happen: 0 = Not at all Total LYSSA-7 score (0-4 normal; 5-9 mild; 10-14 moderate; 15-21 severe): 0 Source: Developed by Drs. Grant Taylor, Belinda Drummond, Scotty Duckworth and colleagues, with an educational hudson from [employer] Review of Systems Const Denies body aches, Denies fatigue, Denies fever(s), Denies frequent falls, Denies headache(s) and Denies weakness Eyes Reports no additional complaints, Denies change in vision and Reports requires corrective lenses ENT Denies dysphagia, Denies dizziness, Denies facial pain, Denies headache(s), Denies nasal congestion and Denies odynophagia Card Denies chest pain, Denies syncope, Denies irregular heart rhythm, Denies leg edema, Denies lightheadedness and Denies dyspnea Resp Denies cough and Denies dyspnea GI Denies constipation, Denies dysphagia, Denies dyspepsia, Denies diarrhea, Denies nausea, Denies odynophagia and Denies vomiting Denies dysuria, Denies urinary frequency, Denies urinary hesitancy and Denies urinary urgency Musc Denies back pain and Denies myalgias Skin/Breast Reports system reviewed and no additional complaints, except as documented Neuro Denies dizziness, Denies syncope, Denies frequent falls, Denies headache(s) and Denies weakness Psych Reports no additional complaints Endo Denies fatigue Physical exam (Primary Care) Vital Signs: Last Vital Signs Temp 97.3 F 03/23/25 08:55 Pulse 62 03/23/25 08:55 BP 119/70 03/23/25 08:55 Pulse Ox 98 03/23/25 08:55 Oxygen Delivery Method Room Air 03/23/25 08:55 BMI result Body Mass Index 37.0 Tobacco/Smoking Status: Tobacco use Status Tobacco use date assessed 03/23/25 03/23/25 08:58 Patient Tobacco Use Status Never used Tobacco 03/23/25 08:58 Tobacco use type Cigarette 03/23/25 08:58 e-Cigarette/Vaping Use Never Used 03/23/25 08:58 PHQ-9: PHQ-9 Score PHQ-9: Total score 0 03/23/25 09:05 Depression Screening Interpretation: Negative Thrive Assessment: Date of Thrive Assessment Date Thrive assessed 07/16/24 03/23/25 08:58 Currently or been in a relationship where the following occur: I choose not to answer Const General: cooperative, healthy appearing, comfortable and no acute distress Orientation/consciousness: patient oriented x3 HENMT Head: Yes normocephalic Ears: hearing grossly normal bilaterally, external ears normal, TM's normal bilaterally and EAC's normal General nose exam: Normal external nose present Face and sinus: Yes normal facial exam and Yes sinuses nontender Mouth: Normal oral and palatal mucosa present and tongue normal Throat: Yes posterior oropharynx normal Eyes General: appearance normal, both eyes and all related structures Conjunctivae: conjunctivae normal Pupils: Equal, round and reactive pupils present EOM: EOMs intact bilaterally and No Nystagmus present Neck Neck: Yes normal visual inspection, Yes full ROM and Yes no lymphadenopathy Chest Chest palpation & inspection: normal inspection of the chest Resp Effort & Inspection: normal respiratory effort Auscultation: clear to auscultation bilaterally, no crackles, no rales, no rhonchi, no wheezes and breath sounds present Cardio Rate: regular rate Rhythm: regular rhythm Peripheral pulses: radial pulses present and dorsalis pedis present GI Inspection: Yes normal to inspection and No Abdominal wall edema Palpation (GI): Soft to palpation, not firm and nontender Auscultation: normal bowel sounds Rectal Exam - Male: Yes deferred General: Yes no CVA tenderness Back/Spine/Pelvis Back: no CVA tenderness Skin General skin exam: no rashes or lesions noted Neuro General: patient oriented x3 Cranial nerves: Yes Equal, round and reactive pupils present, Yes Midline tongue present, Yes Ability to bilaterally elevate shoulders present and No Nystagmus present Gait exam (Neuro): Normal gait present Extrem General: Yes normal to inspection, Yes full ROM, No no pedal edema and No edema Psych Speech and movement: Normal speech and movement present Affect: normal affect Insight: Good insight present (Psych) Judgement: Good judgement present (Psych) Coding Level of Care Code Est Pt Prev Care 40-64y(90930) Diagnoses Annual physical exam Z00.00 Hypertension I10 Hypertension type: primary hypertension Impaired glucose tolerance R73.02 Obesity (BMI 30-39.9) E66.9 Hepatic steatosis K76.0 Chronic kidney disease N18.9 Renal calculi N20.0 GERD (gastroesophageal reflux disease) K21.9 Additional Codes PHQ-9 - 03849 - PHQ-9 Billing: Yes ([id number]) Assessment & Plan Assessment & Plan (1) Annual physical exam: Code(s): Z00.00 - Encounter for general adult medical examination without abnormal findings Category: Medical Plan: Patient is up-to-date on all recommended routine screenings and vaccinations for his age. Healthy diet and regular exercise is encouraged. Blood work is up-to-date and has been reviewed with the patient today and ordered for additional blood work to be completed before next visit (2) Hypertension: Code(s): I10 - Essential (primary) hypertension Category: Medical Qualifiers: Hypertension type: primary hypertension Qualified Code(s): I10 - Essential (primary) hypertension Plan: Continue on current blood pressure medication. Avoid salt intake and encourage healthy diet and regular exercise. Goal blood pressure less than 130/80 (3) Impaired glucose tolerance: Code(s): R73.02 - Impaired glucose tolerance (oral) Category: Medical Plan: Decrease the amount of carbohydrates such as pasta, bread, rice, and potatoes and limit the amount of sweets. Although fruits are generally healthy they should be eaten in moderation as they are still high in sugar. (4) Obesity (BMI 30-39.9): Code(s): E66.9 - Obesity, unspecified Category: Medical Plan: Healthy diet and regular exercise is encouraged. (5) Hepatic steatosis: Code(s): K76.0 - Fatty (change of) liver, not elsewhere classified Category: Medical Plan: Healthy diet and regular exercise is encouraged. Continue to monitor LFTs (6) Chronic kidney disease: Comment: In the setting of hypertension obesity and multiple renal stones and right-sided hydronephrosis. Baseline creatinine is around 1.3-1.5 mg/dL. Code(s): N18.9 - Chronic kidney disease, unspecified Category: Medical Plan: For chronic kidney disease avoid nephrotoxic agents and goal blood pressure less than 130/80. Continue to follow with Nephrology (7) Renal calculi: Code(s): N20.0 - Calculus of kidney Category: Medical Plan: Patient is scheduled to undergo renal ultrasound and continue to follow up Nephrology (8) GERD (gastroesophageal reflux disease): Code(s): K21.9 - Gastro-esophageal reflux disease without esophagitis Category: Medical Plan: Patient has symptoms concerning for GERD evidenced by nocturnal cough that occurs when eating late at night. Discussed dietary and lifestyle modifications. Avoid trigger foods such as citrus, tomato products, soda, caffeine, spicy foods and other foods that may be irritating to your stomach. Avoid laying flat 3-4 hours after eating and elevate the head of the bed 30 degrees to prevent acid from moving into the esophagus. Plan This note was constructed using voice recognition software. While every effort has been made to ensure accuracy and plumber's assistant, still areas may have been included sometimes these areas may affect the content or meeting of the given symptoms. Total time spent caring for the patient today was 30 minutes. This includes time spent before the visit reviewing the chart, time spent during the visit, and time spent after the visit and documentation. Patient was informed and verbally consented to the use of an ambient scribe for clinic note documentation during this visit. Orders: Orders Vitamin B12 and Folate 4 Months Z13.21 - Encounter for screening for nutr itional disorder Vitamin D 25-OH Total 4 Months Z13.21 - Encounter for screening for nutritional disorder Comprehensive Met. Panel 4 Months R73.02 - Impaired glucose tolerance (oral), Z00.00 - Encounter for general adult medical examination without abnormal findings Hemoglobin A1c Today R73.02 - Impaired glucose tolerance (oral) TSH reflex Free T4 4 Months Z13.29 - Encounter for screening for other suspected endocrine disorder Lipid Panel 4 Months Z13.220 - Encounter for screening for lipoid disorders Complete Blood Count Auto Diff 4 Months R73.02 - Impaired glucose tolerance (oral), Z13.0 - Encounter for screening for diseases of the blood and blood- forming organs and certain disorders involving the immune mechanism Medications: Refilled amlodipine (Norvasc) 10 mg PO DAILY 90 tabs 1RF N18.9 - Chronic kidney disease, unspecified cyanocobalamin (vitamin B-12) 1,000 mcg PO DAILY 30 caps 3RF E53.8 - Deficiency of other specified B group vitamins Discontinued ondansetron Discontinued Reason: Patient no longer taking 4 mg PO Q8H PRN 20 tabs 0RF nausea and vomiting
== END 2025-03-23 09:36 | disposition home or self-care (01) ==
LOC: HO.HMCH 08:53
PROVIDERS: PCP Internal Medicine
DX: Z00.00 Encounter for general adult medical examination without abnormal findings (principal); I12.9 Hypertensive chronic kidney disease with stage 1 through stage 4 chronic kidney disease, or unspecified chronic kidney disease; Z68.37 Body mass index [BMI] 37.0-37.9, adult; E66.9 Obesity, unspecified; N18.9 Chronic kidney disease, unspecified; R73.02 Impaired glucose tolerance (oral); K76.0 Fatty (change of) liver, not elsewhere classified; N20.0 Calculus of kidney; K21.9 Gastro-esophageal reflux disease without esophagitis

== ENCOUNTER → 2025-03-23 08:53 | Outpatient (BNVA) | payer OTHER, SELFPAY | PROVIDERS: PCP Internal Medicine | DX: Z00.00 Encounter for general adult medical examination without abnormal findings (principal); I12.9 Hypertensive chronic kidney disease with stage 1 through stage 4 chronic kidney disease, or unspecified chronic kidney disease; N18.9 Chronic kidney disease, unspecified; R73.02 Impaired glucose tolerance (oral); E66.9 Obesity, unspecified; K76.0 Fatty (change of) liver, not elsewhere classified; N20.0 Calculus of kidney; K21.9 Gastro-esophageal reflux disease without esophagitis | CPT/HCPCS: 96127 ==